=== PATIENT | female | born 1945 | race Caucasian/White ===

== ENCOUNTER 2017-03-05 06:30 | Emergency (ER) | payer MEDICARE, OTHER, MEDICAID ==
[2017-03-05 06:40] VITALS: BP 127/77
--- NOTE | 2017-03-05 08:14 | EDM.PDOC ---
ED HPI GENERAL MEDICAL PROBLEM - General Chief Complaint: ENT Problem Stated Complaint: SOB/Post Choking Episode Time Seen by Provider: 03/05/17 06:50 Throat Pain Score (Numeric/FACES): 2 - Related Data Allergies Allergy/AdvReac Type Severity Reaction Status Date / Time No Known Drug Allergies Allergy Other Verified 03/05/17 06:37 cortisone [Cortisone] AdvReac Stomach Verified 03/05/17 06:37 Upset propoxyphene HCl AdvReac Pain Verified 03/05/17 06:37 [From Darvon] Sulfa (Sulfonamide AdvReac Stomach Verified 03/05/17 06:37 Antibiotics) Upset Home Meds: Home Meds [id number] [Beano] 1 tab PO BID 02/15/14 [History] Calcium Carbonate/Vitamin D3 [Calcium 600 + Vit D 400] 1 each PO BID 02/15/14 [ History] Folic Acid 0.4 mg PO DAILY 02/15/14 [History] Glatiramer [Copaxone] 20 mg SQ DAILY 02/15/14 [History] Lansoprazole [Prevacid] 30 mg PO DAILY 02/15/14 [History] Multivitamin [Multivitamins] 1 tab PO DAILY 02/15/14 [History] Ondansetron [Zofran] 4 mg PO Q4H PRN 02/15/14 [History] Polyethylene Glycol 3350 [Miralax] 17 gm PO DAILY 02/15/14 [History] Pregabalin [Lyrica] 150 mg PO TID 02/15/14 [History] traZODone 150 mg PO BEDTIME PRN 02/15/14 [History] DULoxetine [Cymbalta] 60 mg PO BID 09/30/16 [History] Linaclotide [Linzess] 145 mcg PO DAILY 09/30/16 [History] Melatonin/Pyridoxine HCl (B6) [Melatonin 3 mg Tablet] 3 mg PO BEDTIME 09/30/16 [ History] Acetaminophen [Acetaminophen Extra Strength] 1,000 mg PO Q8H 10/04/16 [History] Ascorbic Acid [Vitamin C] 1,000 mg PO DAILY 10/04/16 [History] Bisacodyl [Dulcolax] 10 mg RECTAL DAILY PRN 10/04/16 [History] Cholecalciferol (Vitamin D3) [Vitamin D3] 1,000 units PO DAILY 10/04/16 [History ] Ferrous Gluconate [Ferate] 240 mg PO Q2D 10/04/16 [History] Magnesium Hydroxide [Milk of Magnesia] 30 ml PO DAILY PRN 10/04/16 [History] Nicotine Polacrilex [Nicotine Lozenge] 2 mg BC Q2H PRN 10/04/16 [History] Sennosides/Docusate Sodium [Senna S Tablet] 1 each PO BID 10/04/16 [History] hydrOXYzine Pamoate [Vistaril] 25 mg PO Q6H PRN 10/04/16 [History] traZODone 100 mg PO BEDTIME PRN 10/04/16 [History] Enoxaparin [Lovenox] 40 mg SUBCUT DAILY #4 syringe 10/24/16 [Rx] Past Medical History - Past Health History Medical/Surgical History: Denies Medical/Surgical History HEENT History: Reports: Impaired Vision, Macular Degeneration Gastrointestinal History: Reports: Chronic Constipation Other Gastrointestinal History: constipation, abdominal pain Musculoskeletal History: Reports: Back Pain, Chronic, Osteoporosis, Other (See Below) Other Musculoskeletal History: dislocated shoulder, fracture of right thumb Neurological History: Reports: MS, Seizure, Other (See Below) Other Neuro History: mild cognitive impairment, neuromuscular disorder Psychiatric History: Reports: Anxiety, Depression, Other (See Below) Other Psychiatric History: substance abuse Oncologic (Cancer) History: Reports: Breast - Past Surgical History GI Surgical History: Reports: Appendectomy, Bariatric Procedure Female Surgical History: Reports: Breast Implant, Mastectomy, Tubal Ligation Other Oncologic Surgeries/Procedures: left mastectomy Social & Family History - Family History Family Medical History: Noncontributory - Tobacco Use Smoking Status *Q: Current Every Day Smoker Years of Tobacco use: 30 Packs/Tins Daily: 1 Used Tobacco, but Quit: Yes Month Tobacco Last Used: january 2013 Second Hand Smoke Exposure: No - Caffeine Use Caffeine Use: Reports: Coffee - Alcohol Use Days Per Week of Alcohol Use: 0 - Recreational Drug Use Recreational Drug Use: No ED ROS GENERAL - Review of Systems Review Of Systems: ROS reveals no pertinent complaints other than HPI. ED EXAM, GENERAL - Physical Exam Exam: Not Obtained Free Text/Narrative:: Patient seen and examined by Raza Tovar. Chest x-ray ordered. Please see his dictation for visit summary. Course - Vital Signs Last Recorded V/S: Last Vital Signs Temp 35.9 C 03/05/17 06:39 Pulse 77 03/05/17 06:39 Resp 16 03/05/17 06:39 BP 127/77 03/05/17 06:39 Pulse Ox 91 L 03/05/17 06:39 - Orders/Labs/Meds Orders: Active Orders 24 hr Category Date Time Status Chest 2V [CR] Stat Exams 03/05/17 06:54 Taken - Re-Assessments/Exams Free Text/Narrative Re-Assessment/Exam: 03/05/17 08:02 Chest x-ray reviewed. No visualized food debris seen on scan. Please see Raza Tovar's dictation for ROS, Physical Exam, and HPI. Departure - Departure Time of Disposition: 08:21 Disposition: Home, Self-Care 01 Condition: Good Clinical Impression: Aspiration into airway - Discharge Information Instructions: Swallowed Foreign Body, Adult, [id number] Forms: ED Department Discharge Additional Instructions: Keep your appointment with Dr. Ro. If you are having breathing problems you should have your lungs checked to rule out COPD. I did not see any aspirated food in your lung x-ray. Please contact us with any questions or concerns.
--- NOTE | 2017-03-16 23:51 | ER ---
Date of Service: 03/05/2017 SUBJECTIVE: The patient presents to the emergency room following a choking episode. She states that she was eating cookies in bed. The patient states that she was in her wheelchair and was eating cookies and developed a partial airway obstruction. She was able to use her mobility chair to do a self- heimlich on herself to clear her airway. Subsequently, EMS was contacted using the Life Alert system. The patient was not experiencing any respiratory distress on their arrival, and the patient was subsequently brought to the emergency room for evaluation and treatment. PAST MEDICAL HISTORY: 1. MS. 2. Seizure disorder. 3. Mild cognitive impairment. 4. Anxiety. 5. Breast cancer. 6. Chronic constipation. 7. Macular degeneration. 8. Osteoporosis. 9. Chronic back pain. MEDICATIONS: 1. Trazodone. 2. Vistaril. 3. Senna Plus. 4. Lyrica. 5. MiraLAX. 6. Zofran. 7. Nicotine lozenge. 8. Multivitamin. 9. Melatonin. 10.Milk of magnesia. 11.Linzess. 12.Prevacid. 13.Copaxone. 14.Folic acid. 15.Ferrous gluconate. 16.Lovenox. 17.Cymbalta. 18.Vitamin D3. 19.Dulcolax. 20.Vitamins C. 21.Extra-strength acetaminophen. ALLERGIES: 1. Cortisone. 2. Propoxyphene. 3. Sulfa. REVIEW OF SYSTEMS: Denies any chest pain, shortness of breath, abdominal pain, nausea, or vomiting. Please see history of present illness. PHYSICAL EXAMINATION: General: This is a 71-year-old female patient, in no acute distress. Vital Signs: Blood pressure is 127/77, heart rate is 77, temperature is 35.9, respiratory rate 16, O2 saturations 91% on room air. Skin: Warm, pink, and dry. Lungs: Diminished in the mid lung parekh, particularly on the right. Heart: Regular rate and rhythm. Abdomen: Soft and nontender. There is no hepatosplenomegaly or masses noted. Remainder of her physical examination is unremarkable. Two-view chest x-ray was obtained. Please refer to Cesar Kee's documentation regarding findings of the chest x-ray and disposition of this patient. ASSESSMENT: Choking episode. PLAN: Again, this patient's care was transitioned to Cesar Kee at shift change. Please refer to his documentation regarding the disposition of this patient. MWK: 03/16/2017 19:17:30 MODL: 03/16/2017 23:47:09 /[id number]
== END 2017-03-05 08:25 | disposition home or self-care (01) ==
LOC: VM.ED 06:30
DX: R09.89 Other specified symptoms and signs involving the circulatory and respiratory systems (principal); G43.909 Migraine, unspecified, not intractable, without status migrainosus; G35 Multiple sclerosis; F41.9 Anxiety disorder, unspecified; M81.0 Age-related osteoporosis without current pathological fracture; Z85.3 Personal history of malignant neoplasm of breast; Z88.2 Allergy status to sulfonamides; Z88.8 Allergy status to other drugs, medicaments and biological substances
CPT/HCPCS: 71020; 99282-GF; 99283

== ENCOUNTER 2019-10-20 13:02 | Emergency (ER) | payer MEDICARE, MEDICAID ==
[2019-10-20 13:09] VITALS: BP 127/75; PULSE 78
--- NOTE | 2019-10-20 13:26 | EDM.PDOC ---
ED HPI GENERAL MEDICAL PROBLEM - General Chief Complaint: Skin Complaint Stated Complaint: redness, sores under breast Time Seen by Provider: 10/20/19 13:10 Source of Information: Reports: Patient, Family History Limitations: Reports: No Limitations - History of Present Illness INITIAL COMMENTS - FREE TEXT/NARRATIVE: Patient presents to the ER for skin rash under right breast. Patient states the area usually has soreness/redness and she puts nystatin powder on it as needed. Area has increased in size, redness, has open areas. Daughter states she gave patient a bath today and noticed the area had a foul smell. Patient states she thought she was febrile yesterday and today from the infected area. Daughter also noticed patient has bilateral swelling to her ankles. Patient has history of MS, is wheel chair bound. Patient last EKG was done in 2012 which was NSR. Patient denies cough, palpitations, chest pain, shortness of breath, history of HTN. Patient denies nausea, vomiting, myalgias or chills. Onset: Today Onset Date: 10/20/19 Duration: Getting Worse Location: Reports: Chest (under right breast) Quality: Reports: Burning Severity: Moderate Improves with: Reports: None Worsens with: Reports: None Associated Symptoms: Reports: No Other Symptoms - Related Data Allergies Allergy/AdvReac Type Severity Reaction Status Date / Time cortisone [Cortisone] AdvReac Stomach Verified 10/20/19 13:27 Upset propoxyphene HCl AdvReac Pain Verified 10/20/19 13:27 [From Darvon] Sulfa (Sulfonamide AdvReac Stomach Verified 10/20/19 13:27 Antibiotics) Upset Home Meds: Home Meds Ronya-W-Nddgeeyzvpaug [Beano] 1 tab PO BID 02/15/14 [History] Calcium Carbonate/Vitamin D3 [Calcium 600 + Vit D 400] 1 each PO BID 02/15/14 [ History] Folic Acid 0.4 mg PO DAILY 02/15/14 [History] Glatiramer [Copaxone] 20 mg SQ DAILY 02/15/14 [History] Lansoprazole [Prevacid] 30 mg PO DAILY 02/15/14 [History] Multivitamin [Multivitamins] 1 tab PO DAILY 02/15/14 [History] Ondansetron [Zofran] 4 mg PO Q4H PRN 02/15/14 [History] Pregabalin [Lyrica] 50 mg PO BID 02/15/14 [History] DULoxetine [Cymbalta] 60 mg PO BID 09/30/16 [History] Linaclotide [Linzess] 145 mcg PO DAILY 09/30/16 [History] Ascorbic Acid [Vitamin C] 1,000 mg PO DAILY 10/04/16 [History] Bisacodyl [Dulcolax] 10 mg RECTAL DAILY PRN 10/04/16 [History] Cholecalciferol (Vitamin D3) [Vitamin D3] 1,000 units PO DAILY 10/04/16 [History ] Ferrous Gluconate [Ferate] 240 mg PO Q2D 10/04/16 [History] Magnesium Hydroxide [Milk of Magnesia] 30 ml PO DAILY PRN 10/04/16 [History] Sennosides/Docusate Sodium [Senna-S Tablet] 1 each PO BEDTIME PRN 10/04/16 [ History] traZODone 100 mg PO BEDTIME PRN 10/04/16 [History] Aspirin [Halfprin] 162 mg PO DAILY 10/20/19 [History] Nystatin [Nyamyc] 15 gm TP BID 10/20/19 [History] Pregabalin [Lyrica] 150 mg PO TID 10/20/19 [History] Zolpidem Tartrate [Ambien] 2.5 mg PO BEDTIME 10/20/19 [History] traMADol [Ultram] 100 mg PO BID 10/20/19 [History] Past Medical History - Past Health History Medical/Surgical History: Denies Medical/Surgical History HEENT History: Reports: Impaired Vision, Macular Degeneration Gastrointestinal History: Reports: Chronic Constipation Other Gastrointestinal History: constipation, abdominal pain Musculoskeletal History: Reports: Back Pain, Chronic, Osteoporosis, Other (See Below) Other Musculoskeletal History: dislocated shoulder, fracture of right thumb Neurological History: Reports: MS, Seizure, Other (See Below) Other Neuro History: mild cognitive impairment, neuromuscular disorder Psychiatric History: Reports: Anxiety, Depression, Other (See Below) Other Psychiatric History: substance abuse Oncologic (Cancer) History: Reports: Breast - Past Surgical History GI Surgical History: Reports: Appendectomy, Bariatric Procedure Female Surgical History: Reports: Breast Implant, Mastectomy, Tubal Ligation Other Oncologic Surgeries/Procedures: left mastectomy Social & Family History - Family History Family Medical History: Noncontributory - Caffeine Use Caffeine Use: Reports: Coffee ED ROS GENERAL - Review of Systems Review Of Systems: See Below Constitutional: Reports: Fever, Weakness. Denies: Chills, Malaise, Fatigue, Diaphoresis, Weight Gain HEENT: Reports: No Symptoms Respiratory: Reports: No Symptoms. Denies: Shortness of Breath, Wheezing, Cough , Sputum Cardiovascular: Reports: Edema. Denies: Chest Pain, Blood Pressure Problem, Claudication, Dyspnea on Exertion, Lightheadedness, Palpitations, Syncope Endocrine: Reports: No Symptoms GI/Abdominal: Reports: No Symptoms : Reports: No Symptoms Musculoskeletal: Reports: No Symptoms Skin: Reports: Rash, Erythema, Lesions (right breast ) Psychiatric: Reports: No Symptoms Hematologic/Lymphatic: Reports: No Symptoms Immunologic: Reports: No Symptoms ED EXAM, SKIN/RASH Exam: See Below Exam Limited By: No Limitations General Appearance: Alert, WD/WN, No Apparent Distress Nose: Normal Inspection Head: Atraumatic, Normocephalic Respiratory/Chest: No Respiratory Distress, Lungs Clear, Normal Breath Sounds Cardiovascular: Regular Rate, Rhythm, No JVD, No Murmur Peripheral Pulses: 2+: Dorsalis Pedis (L), Dorsalis Pedis (R) GI/Abdominal: Normal Bowel Sounds, Soft, Non-Tender, No Organomegaly, No Distention, No Mass (Female) Exam: Deferred Rectal (Female) Exam: Deferred Extremities: Pedal Edema (bilateral lower extremity edema 2+) Neurological: Alert, Oriented, CN II-XII Intact, Abnormal Reflexes, Sensory/ Motor Deficit (MS, wheelchair bound) Psychiatric: Normal Affect, Normal Mood Skin: Rash (Geographic area of erythema with area of open skin in the central portion of the lesion consistent with cutaneous candidiasis with superimposed cellulitis.) Location, Skin: Chest Associated features: Tenderness, Inflammation Course - Vital Signs Last Recorded V/S: Last Vital Signs Temp 36.1 C 10/20/19 13:03 Pulse 78 10/20/19 13:03 Resp 18 10/20/19 13:03 BP 127/75 10/20/19 13:03 Pulse Ox 95 10/20/19 13:03 - Orders/Labs/Meds Orders: Active Orders 24 hr Category Date Time Status EKG Documentation Completion [RC] STAT Care 02/09/20 13:18 Active Labs: Laboratory Tests 10/20/19 10/20/19 Range/Units 13:31 13:31 WBC 11.7 H (4.0-10.0) x10^3/uL RBC 4.11 (4.00-5.50) x10^6/uL Hgb 12.4 (12.0-16.0) g/dL Hct 37.1 (33.0-47.0) % MCV 90.3 D (78.0-93.0) fL MCH 30.2 (26.0-32.0) pg MCHC 33.4 (32.0-36.0) g/dL RDW Coeff of Jimmie 15.0 (10.0-15.0) % Plt Count 252 D (130-400) x10^3/uL Neut % (Auto) 71.5 (50.0-80.0) % Lymph % (Auto) 15.8 L (25.0-50.0) % [place] % (Auto) 10.3 (2.0-11.0) % Eos % (Auto) 2.1 (0.0-4.0) % Baso % (Auto) 0.3 (0.2-1.2) % Sodium 137 (136-145) mmol/L Potassium 4.3 (3.5-5.1) mmol/L Chloride 105 (98-107) mmol/L Carbon Dioxide 27 (21-32) mmol/L Anion Gap 9.3 L (10-20) mmol/L BUN 6 L (7-18) mg/dL Creatinine 1.0 (0.55-1.02) mg/dL Est Cr Clr Drug Dosing TNP Estimated GFR (MDRD) 54 Glucose 69 L (74-106) mg/dL Calcium 8.2 L (8.5-10.1) mg/dL Corrected Calcium 9.32 (8.5-10.1) mg/dL Total Bilirubin 0.3 (0.2-1.0) mg/dL AST 30 (15-37) U/L ALT 28 (14-59) U/L Alkaline Phosphatase 134 H (46-116) U/L Troponin I < 0.017 (<=0.056) ng/mL C-Reactive Protein 2.0 H (<=0.9) mg/dL NT-Pro-B Natriuret Pep 341 (<=450) pg/mL Total Protein 5.7 L (6.4-8.2) g/dL Albumin 2.6 L (3.4-5.0) g/dL Globulin 3.1 Albumin/Globulin Ratio 0.84 Meds: Medications Discontinued Medications Generic Name Dose Route Start Last Admin Trade Name Yadira PRN Reason Stop Dose Admin Amoxicillin/Clavulanate Potassium 2 packet 10/20/19 14:14 Take Home: Amox/Clavulanate 875-12, 2 Tab Pac PO 10/20/19 14:15 ONETIME ONE Departure - Departure Time of Disposition: 14:34 Disposition: Home, Self-Care 01 Clinical Impression: Cutaneous candidiasis, Cellulitis, Peripheral edema - Discharge Information Instructions: Amoxicillin; Clavulanic Acid tablets, Cellulitis, Adult, Nystatin ; Triamcinolone cream or ointment, Skin Yeast Infection Referrals: Summer Ro, [Primary Care Provider] - Forms: ED Department Discharge Additional Instructions: Augmentin 875mg 1 twice daily for 10 days Nystatin/triamcinolone Apply to affected area twice daily until improved. Recheck in clinic in 7-10 days, sooner if not gradually improving. Sepsis Event Note - Evaluation Sepsis Screening Result: No Definite Risk - Focused Exam Vital Signs: Vital Signs Temp Pulse Resp BP Pulse Ox 10/20/19 13:03 36.1 C 78 18 127/75 95 Date Exam was Performed: 10/20/19 Time Exam was Performed: 14:29 - Problem List Review Problem List Initiated/Reviewed/Updated: Yes - My Orders Last 24 Hours: My Active Orders 10/20/19 13:18 EKG Documentation Completion [RC] STAT - Assessment/Plan Last 24 Hours: My Active Orders 10/20/19 13:18 EKG Documentation Completion [RC] STAT Plan: Start augmentin 875mg twice daily. At time of discharge, pt. daughter related that she thinks "she has a UTI" as well. No UA was performed since she is being started on an antibiotic. Pt. was started on Nystatin/triamcinolone cream. Apply to affected area twice daily until the area clears. Recheck in clinic in 7 -10 days, sooner if not gradually improving. Patient and family were reassured about the increased peripheral edema. Workup today in ER was negative for acute pathology. Pt. is not short of breath. Advised to elevate legs. If still having troubles, she may need RUFUS hose. Minimize consumption of salty floods.
[2019-10-20 14:01] LABS: CHLORIDE,CL 105 mmol/L (98-107); SODIUM,NA 137 mmol/L (136-145)
[2019-10-20 14:02] LABS: ANION GAP 9.3 mmol/L (10-20)
[2019-10-20] MEDS ORDERED: Take Home: Amoxicillin/Clavulanate K 875-125 MG Tab, 2 Tab Pack PO ONE (14:14)
== END 2019-10-20 14:41 | disposition home or self-care (01) ==
LOC: VM.ED 13:02
DX: N61.0 Mastitis without abscess (principal); B37.2 Candidiasis of skin and nail; R60.0 Localized edema; F41.9 Anxiety disorder, unspecified; F32.9 Major depressive disorder, single episode, unspecified; Z88.8 Allergy status to other drugs, medicaments and biological substances; Z88.2 Allergy status to sulfonamides; Z79.899 Other long term (current) drug therapy; Z79.82 Long term (current) use of aspirin
CPT/HCPCS: 36415; 80053; 83880; 84484; 85025; 86140; 93005; 99283; 99284; A9270

== ENCOUNTER 2020-12-09 09:41 | Inpatient (IN) | payer MEDICARE, MEDICAID ==
[2020-12-09] MEDS ORDERED: cefTRIAXone 1 GM Vial IVPUSH ONE (09:55)
[2020-12-09] MEDS ORDERED: Sodium Chloride 0.9% 10 ML Syringe FLUSH PRN (09:55)
[2020-12-09 11:48] LABS: CHLORIDE,CL 105 mmol/L (98-107); SODIUM,NA 140 mmol/L (136-145)
[2020-12-09 11:53] LABS: ANION GAP 11.2 mmol/L (5-15)
--- NOTE | 2020-12-09 14:09 | CR ---
[id number] RAD/RAD Chest PA or AP 1V EXAM: FRONTAL CHEST INDICATION: COUGH. COMPARISON: March 05, 2017. DISCUSSION: The lungs are clear. The heart is normal in size. Left breast implant. Partially imaged left humerus fixation. Convex right curvature centered in lower thoracic spine. IMPRESSION: 1. Negative for acute infiltrates. Gerhard Rizvi MD 12/09/20 [id number] Thank you for allowing us to participate in the care of your patient.
--- NOTE | 2020-12-09 14:14 | CR ---
[id number] RAD/RAD Hand Left 2V EXAM: RAD Hand Left 2V CLINICAL DATA: TRAUMA COMPARISON: CORRELATION IS MADE WITH APRIL 24, 2010 FINDINGS: Previous pathology involving the left thumb is identified with degenerative changes of the first carpometacarpal joint. IMPRESSION: NO NEW PATHOLOGY Ankur Martinez MD 12/09/20 [id number] Thank you for allowing us to participate in the care of your patient.
[2020-12-09] MEDS ORDERED: Ondansetron 4 MG Tab.DIS PO PRN (17:26)
[2020-12-09] MEDS ORDERED: Bisacodyl 10 MG Supp RECTAL PRN (17:26)
[2020-12-09] MEDS ORDERED: traZODone 50 MG Tab PO PRN (17:26)
[2020-12-09] MEDS ORDERED: Magnesium Hydroxide 400 MG/5 ML Susp 30 ML Cup PO PRN (17:26)
[2020-12-09] MEDS ORDERED: Pregabalin 50 MG Cap PO PRN (17:26)
[2020-12-09] MEDS ORDERED: Loperamide 2 MG Cap PO SCH (17:30)
[2020-12-09] MEDS: Calcium Carbonate/Vitamin D3 1250 MG-200 Unit Tab PO SCH (19:57)
[2020-12-09] MEDS: traZODone 50 MG Tab PO SCH (19:57)
[2020-12-09] MEDS: DULoxetine 60 MG Cap PO SCH (19:58)
[2020-12-09] MEDS: Pregabalin 50 MG Cap PO SCH (19:58)
[2020-12-09] MEDS: traMADol 50 MG Tab PO SCH (19:59)
[2020-12-09] MEDS: Zolpidem 5 MG Tab PO SCH (20:01)
--- NOTE | 2020-12-10 03:10 | HP ---
CHIEF COMPLAINT: Weakness and fall. HISTORY OF PRESENT ILLNESS: This is a 75-year-old female who had a fall in her apartment yesterday evening. She said she was just being careless trying to get off a jacket. She has had some left wrist pain. There is bruising. Her daughter came over and stayed with her. The episode occurred at 6:30. The daughter and got her up and she was up and down into bed at 9:30, up again at 10:30 for urine, wet the bed at 3:30 in the morning. Had a bowel movement at 3:45 that was loose; 5:45, again loose; and then 7:45, shower. The patient states her pattern has been like this, having bowel movements at night. They were black. She stopped iron pills. Now, they are brown. She stopped her prune juice because they made her bowels liquid. Before that, she was not moving her stools. She is on other bowel meds like Linzess. The patient states she has not been hungry lately. She has not had any fever, chills, but she has had some bladder irritation. She has had a history of bladder infections. This sort of feels strange like there is a bubble and she has been incontinent. She has also been coughing. She has a history of smoking. She has completed both COVID vaccines. The patient is followed by home health, who has stated without family support checking in on her she would not be able to stay at home independently. MKA: 12/09/2020 20:21:36 MODL: 12/10/2020 03:03:58 /[id number]
[2020-12-10] MEDS: traMADol 50 MG Tab PO SCH ×3 (05:00→19:41)
[2020-12-10] MEDS: Pantoprazole 40 MG Tab.CR PO SCH (06:21)
--- NOTE | 2020-12-10 06:50 | HP ---
ADDENDUM: ALLERGIES: Darvon, rash; sulfa drugs, rash and a bleeding ulcer; cortisone, not specified. MEDICATIONS: Medication list is reviewed. Ambien 1.25 mg at bedtime; tramadol 50 mg in the morning and at bedtime scheduled, she would like her p.r.n. back, she took about 10 extra per week; Lyrica 150 t.i.d. and 50 mg b.i.d. as needed for pain; Copaxone 20 mg daily; Linzess 145 daily; Prevacid 30 mg daily; Cymbalta 60 mg twice daily; trazodone 100 as needed for sleep and another 100 during the night if needed; milk of mag if needed; Imodium if needed; Zofran if needed for nausea; Senokot if needed for constipation; aspirin 162 daily; Beano; vitamin D; Dulcolax as needed; calcium; multivitamin; folic acid. PAST MEDICAL HISTORY: Includes history of breast cancer; chronic smoking; history of Ambien, has went on withdrawals for that in the past; depression; nocturnal hypoxia, on oxygen; multiple sclerosis in the 1960s; insomnia; history of bariatric surgery; history of recurrent UTIs and urinary retention; osteoporosis with hip fractures; chronic pain related to hip pain and spinal stenosis; and mild cognitive impairment. PAST SURGICAL HISTORY: The patient has had a tubal ligation; bilateral hip surgeries; left shoulder arthroscopy; left humerus ORIF for fracture; IM nailing of the right intertrochanteric hip; mastectomy on the left; gastric bypass; breast implants; appendectomy; abdominal surgery for a femoral artery bleed. FAMILY HISTORY: Both parents are . The patient had a sister who had breast cancer and a sister with multiple sclerosis. SOCIAL HISTORY: The patient is but her is not always living in her same home. She has 2 daughters, both are present today. She is a current smoker. She no longer drinks alcohol. Used to binge drink in the past. REVIEW OF SYSTEMS: General: The patient has just been weak. There has been no weight on her in quite some time like a couple years, but she is actually up about 6 pounds overall, so no weight loss. HEENT: No trouble swallowing or sore throat. Cardiac: No chest pain. No palpitations. Respiratory: She has had a cough, but no new shortness of breath. Abdomen: No vomiting but has had change in bowel habits as stated in HPI. No blood. : She has had some urinary discomfort. Neurologic: She has had some weakness and frequent falls. She has recently been seen by Neurology who has scheduled her for a followup MRI. Otherwise, all systems reviewed and found to be negative unless otherwise stated. PHYSICAL EXAMINATION: On hospital admission and I also did see the patient in the hospital, not just the clinic. Vital Signs: Temperature 97.9, weight 76.2 kg, pulse 71, blood pressure 144/79, respiratory rate 19 and O2 of 95% on room air. General: She is in no acute distress. Heart: Regular rate and rhythm. S1, S2, without murmur. Lungs: Lung sounds decreased with bilateral rhonchi. Abdomen: Positive bowel sounds. Soft, nondistended, nontender. Extremities: Warm and dry. No edema. There is some bruising over the left hand with some mild tenderness and swelling. Mental Status: She is alert and orientated x3. LABORATORY DATA: Lab work through the clinic. Initial lab came back with white count elevated to 15.8 and decision was made to admit to [facility] for further workup and treatment of sepsis. Hemoglobin was 14.7, platelets 248. A1c was 4.5. Lactic acid did come back normal. ESR 2. Sodium 140, potassium 4.2, chloride 105, bicarb 28, BUN 6, creatinine 0.9, glucose 99, calcium 8.2, bilirubin 0.5, AST 37, ALT 36, alkaline phosphatase 160, CRP 1.3, albumin 2.3. Urine; positive nitrite, large leukocyte esterase, 75 to 100 wbc's. COVID negative. ASSESSMENT AND PLAN: 1. Fall with hand injury. No obvious fracture. We will get the patient seen by OT. 2. Urinary tract infection with leukocytosis. We will treat the patient with IV Rocephin given her other allergies and not feeling well and weakness. 3. Multiple sclerosis with weakness and deconditioning. We will get PT involved. 4. DVT prophylaxis. I will start her on Lovenox. I will repeat lab work tomorrow. 5. Chronic pain. We will continue her home medications. 6. Insomnia. We will continue home medications. 7. Depression. We will continue home medications. The patient is admitted for acute cares for IV Rocephin. I will repeat lab work tomorrow. I will include a thyroid test, B12 test has already been drawn through the clinic. The patient is a code level 1. Anticipate she will need a 2-night stay and potentially need to transition over to swing bed. Currently taking assist or two to toilet her. We will hold her Linzess and see how her bowels do. MKA: 12/09/2020 20:32:14 MODL: 12/10/2020 03:38:14 /[id number] MARBIN
[2020-12-10 06:56] LABS: CHLORIDE,CL 107 mmol/L (98-107); SODIUM,NA 141 mmol/L (136-145)
[2020-12-10] MEDS ORDERED: GLATIRAMER 20 MG/ML SQ SCH (08:00)
[2020-12-10] MEDS: cefTRIAXone 1 GM Vial IVPUSH SCH (08:07)
[2020-12-10] MEDS: Enoxaparin 40 MG/0.4 ML Syringe SUBCUT SCH (08:07)
[2020-12-10] MEDS: Calcium Carbonate/Vitamin D3 1250 MG-200 Unit Tab PO SCH ×2 (08:08→19:40)
[2020-12-10] MEDS: Multivitamins with Iron/Calcium/Folic Acid/Minerals Tab PO SCH (08:08)
[2020-12-10] MEDS: Folic Acid 0.4 MG Tab PO SCH (08:08)
[2020-12-10] MEDS: Pregabalin 50 MG Cap PO SCH ×3 (08:08→19:43)
[2020-12-10] MEDS: DULoxetine 60 MG Cap PO SCH ×2 (08:08→19:40)
[2020-12-10] MEDS: Cholecalciferol (Vitamin D3) 25 MCG Tab PO SCH (08:08)
[2020-12-10] MEDS: Aspirin 81 MG Tab.EC PO SCH (08:08)
[2020-12-10] MEDS ORDERED: Albuterol/Ipratropium 3.0-0.5 MG/3 ML Neb Soln NEB PRN (08:12)
[2020-12-10] MEDS: COPAXONE 20 MG/ML SQ SCH (08:18)
--- NOTE | 2020-12-10 10:32 | PN ---
Progress Note for NAUN GRAHAM Date: 12/10/2020 Room #: VM.201 SUBJECTIVE: This is hospital day #2 on a 75-year-old who came from home with a urinary tract infection and a fall. The patient's hand feels okay. The only pain she has is in her right hip, which is her chronic pain. She has generalized weakness due to her MS. She has not had any fever or chills. She states her cough and breathing are better. Chest x-ray yesterday was okay, but she is a pack-a-day smoker and declines nicotine patch. She has not had any chronic lung disease on previous testing 4 yrs ago. She is having no abdominal pain. No nausea or vomiting. She ate 100% of her lunch yesterday. She continues to have loose stools, she had 2 overnight. She did get some Imodium. She has previously been on laxatives with Linzess. No recent ABX use prior to admit. She did get IV Rocephin yesterday and tolerated that. Post void residual was only around 200 per nursing so no straight cath was required. OBJECTIVE: Vital Signs: Her temperature is 98.7, pulse 73, blood pressure 136/75, respiratory rate 16, O2 of 91 on room air, but had been 94 and 96 on her previous checks. Mental Status: She is alert and orientated x3. General: She is in no acute distress. Heart: Regular rate and rhythm. S1 and S2 without murmur. Lungs: Sounds are clear to auscultation throughout, no rhonchi today; however, she has some rare expiratory wheezing. Abdomen: Nondistended, positive bowel sounds, soft, nontender. Extremities: Warm and dry. No edema. LABORATORY DATA: Lab work does show white count improved to 10.2, hemoglobin down to 12.7, and platelets 229. Sodium 141, potassium 4, chloride 107, bicarb 29, BUN 8, creatinine 0.9, calcium 8.2, alkaline phosphatase down to 145, albumin 2.0. Urine culture pending. Blood cultures so far no growth. Lab work through the clinic yesterday prior to admission for outpatient labs did show her B12 normal at 730. ASSESSMENT: 1. Urinary tract infection with leukocytosis, improving. She is on day #2 IV Rocephin. We will continue with that. 2. Weakness and frequent falls related to the urinary tract infection and multiple sclerosis. 3. Fall with left hand injury. We will get OT involved. It is not fractured on x-ray, but she may need a brace to help her with transfers. 4. Multiple sclerosis. 5. Deep venous thrombosis prophylaxis on Lovenox. 6. Chronic pain. She is on her home medications. 7. Loose stools, likely related to laxatives. We have held her Linzess. 8. Insomnia. 9. Depression. 10. Smoking, possibly chronic bronchitis PLAN: The patient will continue on acute cares. We will discontinue telemetry. She had no events other than some brief sinus tachycardia. We will get Therapies involved along with Manager Nc to ensure that she is safe to return home. Right now, she is needing the assist of at least 1 more person for transfers and toileting. The patient declines a nicotine patch. We will start prn nebs and incentive spirometry. MKA: 12/10/2020 08:29:43 MODL: 12/10/2020 10:23:11 /[id number] MARBIN
[2020-12-10] MEDS ORDERED: traMADol 50 MG Tab PO ONE (15:10)
[2020-12-10] MEDS: traZODone 50 MG Tab PO SCH (19:40)
[2020-12-10] MEDS: Zolpidem 5 MG Tab PO SCH (19:41)
[2020-12-10] MEDS ORDERED: traMADol 50 MG Tab PO PRN (21:18)
[2020-12-11] MEDS: Pantoprazole 40 MG Tab.CR PO SCH (06:09)
[2020-12-11] MEDS: COPAXONE 20 MG/ML SQ SCH (08:32)
[2020-12-11] MEDS: Enoxaparin 40 MG/0.4 ML Syringe SUBCUT SCH (08:33)
[2020-12-11] MEDS: cefTRIAXone 1 GM Vial IVPUSH SCH (08:34)
[2020-12-11] MEDS: Psyllium 0.52 GM Cap PO SCH (08:35)
[2020-12-11] MEDS: Cholecalciferol (Vitamin D3) 25 MCG Tab PO SCH (08:35)
[2020-12-11] MEDS: Multivitamins with Iron/Calcium/Folic Acid/Minerals Tab PO SCH (08:35)
[2020-12-11] MEDS: Pregabalin 50 MG Cap PO SCH ×3 (08:35→19:57)
[2020-12-11] MEDS: Aspirin 81 MG Tab.EC PO SCH (08:36)
[2020-12-11] MEDS: DULoxetine 60 MG Cap PO SCH ×2 (08:36→19:54)
[2020-12-11] MEDS: traMADol 50 MG Tab PO SCH ×2 (08:36→19:56)
[2020-12-11] MEDS: Calcium Carbonate/Vitamin D3 1250 MG-200 Unit Tab PO SCH ×2 (08:37→19:57)
[2020-12-11] MEDS: Folic Acid 0.4 MG Tab PO SCH (08:37)
[2020-12-11] MEDS ORDERED: Naproxen 500 MG Tab PO PRN (09:36)
--- NOTE | 2020-12-11 10:22 | PN ---
Progress Note for NAUN GRAHAM Date: 12/11/2020 Room #: VM.201 SUBJECTIVE: This is hospital day #3 on a 75-year-old admitted with weakness and falls and a urinary tract infection with leukocytosis. White count 15,000 in the clinic. She has been afebrile. She has had a history of urinary retention. She has a longstanding history of MS. She did require a straight cath yesterday when her postvoid was over 600. She did void 100 more and was straight cathed for 400. She did request an additional dose of p.r.n. tramadol for her chronic hip pain, and this morning she is asking about p.r.n. Aleve. Her renal function has been good. Her sed rate was only 2. Her white count improved to 10.2. She is not having any cough or breathing trouble, but her oxygen saturation was slightly low at 89% this morning. However, the patient normally uses oxygen at home during the night and did not use it here. The patient otherwise has been having diarrhea even prior to being on antibiotics with loose stools that happened overnight. She had another major one around 4 a.m. this morning and required quite a bit of assistance to help clean her up. This is despite us stopping the Linzess on admission and getting no laxatives. OBJECTIVE: Vital Signs: Her temperature is 98.4, pulse 75, blood pressure 128/75, respiratory rate 16, O2 of 89% on room air. General: She is in no acute distress. Heart: Regular rate and rhythm without murmur. Lungs: Lung sounds are clear to auscultation in the right lung. Decreased lung sounds with rhonchi in the left. She denies any trouble swallowing. Abdomen: Has positive bowel sounds. It is soft, nondistended, nontender. Extremities: Warm and dry with trace ankle edema. We have not even given her any fluids. Mental Status: She is alert and oriented x3. Her right breast is examined and is normal. She has had trouble with infections under her breast with yeast previously, but none present today. LABORATORY DATA: Shows her urine to have return for E coli, pansensitive. Chest x-ray is ordered and pending. ASSESSMENT: 1. Escherichia coli urinary tract infection. The patient did receive her intravenous Rocephin this morning. We will switch her over to Macrobid to complete a 7-day course. 2. Urinary retention probably due to underlying multiple sclerosis. We will continue with bladder scans and straight cath if needed for over 400. 3. Nocturnal hypoxia. We will schedule her O2 at night. I will get a chest x- ray today. We will encourage incentive spirometry. 4. Chronic hip pain. She has had previous fractures. Tramadol is available p.r.n. She only got 1 additional dose. She is on her scheduled tramadol. We will also include p.r.n. Aleve and she is also on Lyrica. 5. Gastroesophageal reflux disease. She is on Protonix. I am going to decrease the dose to 20 mg daily in case this is worsening her diarrhea. 6. Loose stools and incontinence. This has been an ongoing problem. Her laxatives have been stopped. I did start her on Metamucil today. The patient understands that this is to bulk up her stools and hopefully help. We will also send off a Clostridium difficile test. 7. Deep venous thrombosis prophylaxis. She is on Lovenox. 8. Weakness and deconditioning with frequent falls. She is working with therapies. 9. Multiple sclerosis. She was supposed to have an MRI in [place] per Neuro for routine followup. That will need to be rescheduled. 10.Fall with left hand injury. X-rays negative for fracture. That seems to be improving. 11.Depression. 12.Smoking with likely chronic bronchitis. She has not used a nebulizer yet. PLAN: The patient will continue acute cares. I will switch her antibiotics over to Macrobid tomorrow as she has already had her Rocephin for today. We will continue her working with therapies. We will get a stool test. We will get a test for C diff. We will put her on the Metamucil. We will continue with the bladder scan. Encourage incentive spirometry and oxygen at night. The patient was initially very reluctant to stay over the weekend, but in the end did agree. She will likely transition over to swing bed tomorrow if all medical conditions remain stable. MKA: 12/11/2020 09:43:43 MODL: 12/11/2020 10:15:24 /[id number]
--- NOTE | 2020-12-11 13:18 | CR ---
[id number] RAD/RAD Chest PA or AP 1V EXAM: SINGLE VIEW CHEST. INDICATION: HYPOXIA COMPARISON: CORRELATION IS MADE WITH DECEMBER 09, 2020 FINDINGS: The lungs are clear The cardiomediastinal contour is stable Surgical changes of the left upper extending again are seen IMPRESSION: STABLE CHEST Ankur Martinez MD 12/11/20 1494 Thank you for allowing us to participate in the care of your patient.
[2020-12-11] MEDS: Zolpidem 5 MG Tab PO SCH (19:54)
[2020-12-11] MEDS: traZODone 50 MG Tab PO SCH (19:55)
[2020-12-12 06:18] VITALS: BP 109/56; PULSE 63
[2020-12-12] MEDS: Pantoprazole 40 MG Tab.CR PO SCH (06:24)
[2020-12-12] MEDS: cefTRIAXone 1 GM Vial IVPUSH SCH (07:55)
[2020-12-12] MEDS: Pregabalin 50 MG Cap PO SCH (07:55)
[2020-12-12] MEDS: Enoxaparin 40 MG/0.4 ML Syringe SUBCUT SCH (07:55)
[2020-12-12] MEDS: traMADol 50 MG Tab PO SCH (07:55)
[2020-12-12] MEDS: Multivitamins with Iron/Calcium/Folic Acid/Minerals Tab PO SCH (07:56)
[2020-12-12] MEDS: DULoxetine 60 MG Cap PO SCH (07:56)
[2020-12-12] MEDS: Aspirin 81 MG Tab.EC PO SCH (07:56)
[2020-12-12] MEDS: Folic Acid 0.4 MG Tab PO SCH (07:56)
[2020-12-12] MEDS: Cholecalciferol (Vitamin D3) 25 MCG Tab PO SCH (07:56)
[2020-12-12] MEDS: Psyllium 0.52 GM Cap PO SCH (07:56)
[2020-12-12] MEDS: Calcium Carbonate/Vitamin D3 1250 MG-200 Unit Tab PO SCH (07:57)
[2020-12-12] MEDS ORDERED: Nitrofurantoin Monohydrate/Macrocrystalline 100 MG Cap PO SCH (08:00)
[2020-12-12] MEDS: COPAXONE 20 MG/ML SQ SCH (08:02)
--- NOTE | 2020-12-12 14:05 | DISCH ---
ADMITTING DIAGNOSES: 1. Fall with hand injury. 2. Urinary tract infection with leukocytosis. 3. Multiple sclerosis with weakness and deconditioning. 4. Chronic pain. 5. Insomnia. 6. Depression. DISCHARGE DIAGNOSES: 1. Fall with hand injury - improving. 2. Urinary tract infection with leukocytosis - improving. 3. Multiple sclerosis with weakness and deconditioning - chronic. 4. Chronic pain. 5. Insomnia. 6. Depression. HISTORY OF PRESENT ILLNESS: A 75-year-old female patient was admitted into the acute care floor on 12/09/2020 for weakness and falls as well as a urinary tract infection with leukocytosis. The patient's white count had been as high as 15,000 in the clinic. The patient does have a history of urinary retention. She has a longstanding history of MS. The patient was admitted acutely for current symptoms and urinary tract infection. HOSPITAL COURSE: The patient remained afebrile and hemodynamically stable. The patient is progressing with physical and occupational therapy. The patient did have issues with diarrhea, therefore, a C diff was checked, which turned out to be negative. The patient continues to use oxygen at night. Her white cell count has improved on Rocephin IV. The patient did not have any issues with headaches, dizziness, or lightheadedness. The patient did not have any chest pain or palpitations. The patient had not complained of any shortness of breath or cough. The patient continues to have loose stools. The patient had been on Linzess, which was stopped and the patient has not been getting any laxatives. CONSULTATIONS: Case Management, Physical Therapy, Occupational Therapy. DIET: Regular. ACTIVITY: As tolerated per PT. DISCHARGE MEDICATIONS: 1. DuoNebs every 4 hours as needed. 2. Aspirin 162 mg p.o. daily. 3. Dulcolax 10 mg daily as needed per rectal. 4. Calcium carbonate/vitamin-D 1 tablet p.o. daily. 5. Vitamin D 25 mcg 1 tablet p.o. daily. 6. Senna-S 1 tablet p.o. daily at bedtime. 7. Cymbalta 60 mg 1 tablet p.o. twice daily. 8. Folic acid 0.4 mg 1 tablet p.o. daily. 9. Linzess 145 mcg 1 tablet p.o. daily. 10.Copaxone subcu daily. 11.Magnesium hydroxide 30 mL p.o. daily as needed. 12.Multivitamin with iron 1 tablet p.o. daily. 13.Naproxen 500 mg 1 tablet p.o. every 12 hours as needed. 14.Macrobid 100 mg 1 tablet p.o. daily. 15.Zofran 4 mg 1 tablet p.o. every 4 hours as needed. 16.Protonix 40 mg 1 tablet p.o. daily. 17.Lyrica 50 mg 1 tablet p.o. twice daily as needed. 18.Lyrica 150 mg 1 tablet p.o. 3 times daily. 19.Metamucil 1.04 grams p.o. daily. 20.Tramadol 100 mg 1 tablet p.o. twice daily. 21.Tramadol 50 mg every 8 hours as needed. 22.Trazodone 100 mg 1 tablet p.o. daily at bedtime. 23.Ambien 1.25 mg 1 tablet p.o. daily at bedtime. LABORATORY WORK: 1. CBC; white blood cell count 8.9, hemoglobin 13.3, hematocrit 38.8, platelets 234,000. 2. BMP; sodium 143, potassium 4.0, chloride 108, CO2 of 31, anion gap 8.0, BUN 6, creatinine 1.0, GFR 54, glucose 96, calcium 8.3, bilirubin 0.4, AST 34, ALT 33, alkaline phosphatase 145, total protein 5.5, albumin 2.2. REVIEW OF SYSTEMS: Unable to obtain due to MS; however, nursing staff offers no concerns. DISCHARGE PHYSICAL EXAMINATION: Vital Signs: See nursing documentation. Skin: Intact, warm, and dry. Respiratory: Lungs are decreased, but clear throughout. Cardiovascular: Regular rate and rhythm, no murmur. Abdomen: Soft, nontender. Bowel sounds are hyperactive x4. Neurological: The patient is alert. The patient does not appear to be in any acute distress. No new neurological deficits. ASSESSMENT: 1. Fall with hand injury. 2. Urinary tract infection with leukocytosis. 3. Multiple sclerosis with weakness and deconditioning. 4. Depression. 5. Nocturnal hypoxia. 6. Chronic hip pain. 7. Gastroesophageal reflux disease. 8. Loose stools and incontinence. 9. Chronic hip pain. PLAN: The patient will be discharged to swing bed today. The admitting acute H&P is still current as of the date of this dictation. It may be used as the H&P for admission to swing bed. Continue medications the same. PT/OT will continue to follow as well as Case Management. There is a family conference Monday at noon for plan of care and discharge disposition. Will continue patient on Macrobid for UTI. TB: 12/12/2020 09:52:59 MODL: 12/12/2020 13:57:54 /[id number] MTDD
[2020-12-12] MEDS ORDERED: ALPHA D GALACTOSIDASE PO SCH (20:00)
== END 2020-12-12 09:28 | disposition swing bed (61) | DRG 914 ==
LOC: VM.MS 09:46
PROVIDERS: ADMIT Internal Medicine; ATTEND Internal Medicine
DX: S69.92XA Unspecified injury of left wrist, hand and finger(s), initial encounter (principal); N39.0 Urinary tract infection, site not specified; G35 Multiple sclerosis; W19.XXXA Unspecified fall, initial encounter; G89.29 Other chronic pain; G47.00 Insomnia, unspecified; F32.9 Major depressive disorder, single episode, unspecified; F17.210 Nicotine dependence, cigarettes, uncomplicated; J42 Unspecified chronic bronchitis; R33.9 Retention of urine, unspecified; B96.20 Unspecified Escherichia coli [E. coli] as the cause of diseases classified elsewhere; M25.559 Pain in unspecified hip; K21.9 Gastro-esophageal reflux disease without esophagitis; R32 Unspecified urinary incontinence; M81.0 Age-related osteoporosis without current pathological fracture; Z88.2 Allergy status to sulfonamides; Z88.8 Allergy status to other drugs, medicaments and biological substances; Z79.899 Other long term (current) drug therapy; Z85.3 Personal history of malignant neoplasm of breast; Z98.84 Bariatric surgery status; Z87.440 Personal history of urinary (tract) infections; Z98.51 Tubal ligation status; Z90.49 Acquired absence of other specified parts of digestive tract; Z79.82 Long term (current) use of aspirin
CPT/HCPCS: 36415; 51798; 71045; 73120-LT; 80053; 81001; 83605; 84443; 85025; 85652; 86140; 87040; 87086; 87088; 87186; 87493; 97110-GP; 97162-GP; 97165-GO; 97530-GP; 97535-GO; 97760-GO; A9270-GY; J0696; J1650; U0002

== ENCOUNTER 2020-12-12 09:31 | Inpatient (IN) | payer MEDICARE, MEDICAID ==
[2020-12-12] MEDS ORDERED: ONDANSETRON 4 MG PO PRN (12:54)
[2020-12-12] MEDS ORDERED: Magnesium Hydroxide 400 MG/5 ML Susp 30 ML Cup PO PRN ×2 (12:54→12:57)
[2020-12-12] MEDS ORDERED: Bisacodyl 10 MG Supp RECTAL PRN ×2 (12:54→12:57)
[2020-12-12] MEDS ORDERED: TRAZODONE 100 MG PO PRN (12:54)
[2020-12-12] MEDS ORDERED: Pregabalin 50 MG Cap PO PRN ×2 (12:54→12:57)
[2020-12-12] MEDS ORDERED: traMADol 50 MG Tab PO PRN (12:57)
[2020-12-12] MEDS ORDERED: traZODone 50 MG Tab PO PRN (12:57)
[2020-12-12] MEDS ORDERED: Albuterol/Ipratropium 3.0-0.5 MG/3 ML Neb Soln NEB PRN (12:57)
[2020-12-12] MEDS ORDERED: Sodium Chloride 0.9% 10 ML Syringe FLUSH PRN (12:57)
[2020-12-12] MEDS ORDERED: Loperamide 2 MG Cap PO SCH (12:57)
[2020-12-12] MEDS ORDERED: Ondansetron 4 MG Tab.DIS PO PRN (12:57)
[2020-12-12] MEDS: Zolpidem 5 MG Tab PO SCH (19:48)
[2020-12-12] MEDS: Calcium Carbonate/Vitamin D3 1250 MG-200 Unit Tab PO SCH (19:49)
[2020-12-12] MEDS: Pregabalin 50 MG Cap PO SCH (19:50)
[2020-12-12] MEDS: DULoxetine 60 MG Cap PO SCH (19:50)
[2020-12-12] MEDS: traZODone 50 MG Tab PO SCH (19:51)
[2020-12-12] MEDS: Nitrofurantoin Monohydrate/Macrocrystalline 100 MG Cap PO SCH (19:51)
[2020-12-12] MEDS: traMADol 50 MG Tab PO SCH (19:51)
[2020-12-12] MEDS: Loperamide 2 MG Cap PO PRN (19:52)
[2020-12-12] MEDS ORDERED: Non-Formulary Medication 1 Each (Pregabalin [Lyrica] 150 MG Capsule) PO SCH (20:00)
[2020-12-12] MEDS ORDERED: traMADol 50 MG Tab PO SCH (20:00)
[2020-12-12] MEDS ORDERED: Zolpidem 5 MG Tab PO SCH (20:00)
[2020-12-12] MEDS ORDERED: Nitrofurantoin Monohydrate/Macrocrystalline 100 MG Cap PO SCH (20:00)
[2020-12-12] MEDS ORDERED: DULoxetine 60 MG Cap PO SCH (20:00)
[2020-12-12] MEDS ORDERED: ALPHA D GALACTOSIDASE PO SCH (20:00)
[2020-12-12] MEDS ORDERED: traZODone 50 MG Tab PO SCH (20:00)
[2020-12-13] MEDS: Pantoprazole 40 MG Tab.CR PO SCH (06:49)
[2020-12-13] MEDS: traMADol 50 MG Tab PO SCH ×2 (07:55→19:52)
[2020-12-13] MEDS: Psyllium 0.52 GM Cap PO SCH (07:56)
[2020-12-13] MEDS: Multivitamins with Iron/Calcium/Folic Acid/Minerals Tab PO SCH (07:56)
[2020-12-13] MEDS: DULoxetine 60 MG Cap PO SCH ×2 (07:57→19:48)
[2020-12-13] MEDS: Calcium Carbonate/Vitamin D3 1250 MG-200 Unit Tab PO SCH ×2 (07:57→19:48)
[2020-12-13] MEDS: Pregabalin 50 MG Cap PO SCH ×3 (07:57→19:55)
[2020-12-13] MEDS: Aspirin 81 MG Tab.EC PO SCH (07:57)
[2020-12-13] MEDS: Nitrofurantoin Monohydrate/Macrocrystalline 100 MG Cap PO SCH ×2 (07:57→19:53)
[2020-12-13] MEDS: Cholecalciferol (Vitamin D3) 25 MCG Tab PO SCH (07:58)
[2020-12-13] MEDS: Folic Acid 0.4 MG Tab PO SCH (07:58)
[2020-12-13] MEDS ORDERED: Non-Formulary Medication 1 Each (Multivitamin [Multivitamins] 1 EACH Capsule) PO SCH (08:00)
[2020-12-13] MEDS ORDERED: GLATIRAMER 20 MG/ML SQ SCH (08:00)
[2020-12-13] MEDS ORDERED: Cholecalciferol (Vitamin D3) 25 MCG Tab PO SCH (08:00)
[2020-12-13] MEDS ORDERED: LANSOPRAZOLE 30 MG PO SCH (08:00)
[2020-12-13] MEDS ORDERED: Aspirin 81 MG Tab.EC PO SCH (08:00)
[2020-12-13] MEDS ORDERED: Non-Formulary Medication 1 Each (Linaclotide [Linzess] 145 MCG) PO SCH (08:00)
[2020-12-13] MEDS ORDERED: Folic Acid 0.4 MG Tab PO SCH (08:00)
[2020-12-13] MEDS: Naproxen 500 MG Tab PO PRN (09:22)
[2020-12-13] MEDS: Loperamide 2 MG Cap PO PRN (18:19)
[2020-12-13] MEDS: Zolpidem 5 MG Tab PO SCH (19:47)
[2020-12-13] MEDS: traZODone 50 MG Tab PO SCH (19:53)
[2020-12-14] MEDS: Pantoprazole 40 MG Tab.CR PO SCH (06:32)
[2020-12-14] MEDS: GLATIRAMER 20 MG SQ SCH (09:57)
[2020-12-14] MEDS: Multivitamins with Iron/Calcium/Folic Acid/Minerals Tab PO SCH (09:57)
[2020-12-14] MEDS: Calcium Carbonate/Vitamin D3 1250 MG-200 Unit Tab PO SCH ×2 (09:57→19:51)
[2020-12-14] MEDS: Psyllium 0.52 GM Cap PO SCH (09:57)
[2020-12-14] MEDS: Loperamide 2 MG Cap PO PRN ×2 (09:58→19:52)
[2020-12-14] MEDS: Aspirin 81 MG Tab.EC PO SCH (09:58)
[2020-12-14] MEDS: Cholecalciferol (Vitamin D3) 25 MCG Tab PO SCH (09:58)
[2020-12-14] MEDS: DULoxetine 60 MG Cap PO SCH ×2 (09:58→19:50)
[2020-12-14] MEDS: Nitrofurantoin Monohydrate/Macrocrystalline 100 MG Cap PO SCH ×2 (09:58→19:51)
[2020-12-14] MEDS: Folic Acid 0.4 MG Tab PO SCH (09:58)
[2020-12-14] MEDS: Pregabalin 50 MG Cap PO SCH ×3 (09:59→19:53)
[2020-12-14] MEDS: traMADol 50 MG Tab PO SCH ×2 (09:59→19:52)
--- NOTE | 2020-12-14 17:26 | PN ---
Progress Note for NAUN GRAHAM Date: 12/14/2020 Room #: VM.201 SUBJECTIVE: A 75-year-old admitted to Acute Care after frequent falls and an E. coli UTI. She is currently on Macrobid, due to finish her doses tomorrow. Unfortunately, she has been having diarrhea and incontinence of stool. Despite stopping her Linzess and other laxatives, she had a C. diff test that came back negative. We did add her on Metamucil late last week, so far has not noted any benefit. She has been eating okay. She did have 5 stools on 12/13/2020. She has been drinking water. She has been working with therapies and needing some assistance to safely transfer. She would like to get back to her apartment soon. Family conference was held today with her 2 daughters and decision was made to transition over to the [facility] later this week for further strengthening prior to returning home and also to give the opportunity for the county and family to arrange for more home services. OBJECTIVE: Vital Signs: Her temperature is 97.4, weight 73.2 kg, pulse 70, blood pressure 129/75, respiratory rate 16, and O2 of 94% on room air. General: She is in no acute distress. Heart: Regular rate and rhythm. Lungs: Lung sounds have some rare rhonchi, did clear with coughing. Mental Status: She is alert and oriented x3, but when trying to tell me about when her diarrhea stopped she said Monday or Monday morning and neglected to remember the episodes during the day. Daughters did mention that their dad had some concerns about the extra trazodone dose during the night, which she is not even scheduled to get here. ASSESSMENT: 1. Escherichia coli urinary tract infection. Will be completing antibiotics tomorrow. 2. Loose stools. This has been an ongoing problem, previously had diarrhea. We will continue the Metamucil and Imodium p.r.n. If this does not work, we will need to try some dietary changes. She is already on yogurt for C. diff prophylaxis. 3. Urinary retention. This is presumably due to her multiple sclerosis. She has been evaluated by Urology in the past and she is not interested in returning. She did require straight catheterization over the weekend. 4. Multiple sclerosis. She is due for an outpatient MRI and neuro followup later this month. 5. Chronic hip pain. She has worked with therapy before. She has tramadol available. She has used some p.r.n. NSAIDs. She is also on Lyrica. 6. Gastroesophageal reflux disease. 7. Weakness and deconditioning. She is working with therapies. 8. Fall with hand injury. She continues to have some pain there. She is now wearing a splint. We will likely repeat her x-ray on Monday. 9. Smoking with likely chronic bronchitis. She is currently declining any nicotine patch or gum. 10.Depression. PLAN: After meeting with the patient and her 2 daughters, decision was made to transition over to the [facility] for further strengthening at the end of the week, likely for several weeks to a month. The patient is agreeable with this plan. No lab work will need to be repeated. If having further diarrhea despite Metamucil, we will collect stool studies. MKA: 12/14/2020 17:03:36 MODL: 12/14/2020 17:17:29 /[id number]
[2020-12-14] MEDS: Zolpidem 5 MG Tab PO SCH (19:51)
[2020-12-14] MEDS: traZODone 50 MG Tab PO SCH (19:52)
[2020-12-14] MEDS: Naproxen 500 MG Tab PO PRN (20:27)
[2020-12-14] MEDS: ALPHA D GALACTOSIDASE PO SCH (20:27)
[2020-12-15] MEDS: Pantoprazole 40 MG Tab.CR PO SCH (06:09)
[2020-12-15] MEDS: Aspirin 81 MG Tab.EC PO SCH (07:52)
[2020-12-15] MEDS: Calcium Carbonate/Vitamin D3 1250 MG-200 Unit Tab PO SCH ×2 (07:52→19:47)
[2020-12-15] MEDS: Psyllium 0.52 GM Cap PO SCH (07:53)
[2020-12-15] MEDS: Loperamide 2 MG Cap PO PRN ×2 (07:53→19:49)
[2020-12-15] MEDS: Multivitamins with Iron/Calcium/Folic Acid/Minerals Tab PO SCH (07:53)
[2020-12-15] MEDS: Folic Acid 0.4 MG Tab PO SCH (07:53)
[2020-12-15] MEDS: Pregabalin 50 MG Cap PO SCH ×3 (07:53→19:47)
[2020-12-15] MEDS: DULoxetine 60 MG Cap PO SCH ×2 (07:53→19:47)
[2020-12-15] MEDS: Cholecalciferol (Vitamin D3) 25 MCG Tab PO SCH (07:54)
[2020-12-15] MEDS: Nitrofurantoin Monohydrate/Macrocrystalline 100 MG Cap PO SCH ×2 (07:54→19:48)
[2020-12-15] MEDS: traMADol 50 MG Tab PO SCH ×2 (07:54→19:49)
[2020-12-15] MEDS: ALPHA D GALACTOSIDASE PO SCH ×2 (08:27→19:46)
[2020-12-15] MEDS: GLATIRAMER 20 MG SQ SCH (09:11)
[2020-12-15] MEDS: Zolpidem 5 MG Tab PO SCH (19:46)
[2020-12-15] MEDS: traZODone 50 MG Tab PO SCH (19:48)
[2020-12-15] MEDS: Naproxen 500 MG Tab PO PRN (23:50)
[2020-12-16] MEDS: Pantoprazole 40 MG Tab.CR PO SCH (06:47)
[2020-12-16] MEDS: Loperamide 2 MG Cap PO PRN (06:47)
[2020-12-16] MEDS: Folic Acid 0.4 MG Tab PO SCH (08:28)
[2020-12-16] MEDS: DULoxetine 60 MG Cap PO SCH ×2 (08:29→20:12)
[2020-12-16] MEDS: Aspirin 81 MG Tab.EC PO SCH (08:29)
[2020-12-16] MEDS: Pregabalin 50 MG Cap PO SCH ×3 (08:30→20:12)
[2020-12-16] MEDS: GLATIRAMER 20 MG SQ SCH (08:32)
[2020-12-16] MEDS: Multivitamins with Iron/Calcium/Folic Acid/Minerals Tab PO SCH (08:33)
[2020-12-16] MEDS: Psyllium 0.52 GM Cap PO SCH (08:33)
[2020-12-16] MEDS: traMADol 50 MG Tab PO SCH ×2 (08:34→20:13)
[2020-12-16] MEDS: Cholecalciferol (Vitamin D3) 25 MCG Tab PO SCH (08:37)
[2020-12-16] MEDS: ALPHA D GALACTOSIDASE PO SCH ×2 (08:51→20:14)
[2020-12-16] MEDS: Calcium Carbonate/Vitamin D3 1250 MG-200 Unit Tab PO SCH ×2 (10:37→20:12)
[2020-12-16] MEDS: Zolpidem 5 MG Tab PO SCH (20:11)
[2020-12-16] MEDS: traZODone 50 MG Tab PO SCH (20:13)
[2020-12-16] MEDS: Naproxen 500 MG Tab PO PRN (20:14)
[2020-12-17] MEDS: Pantoprazole 40 MG Tab.CR PO SCH (06:01)
[2020-12-17] MEDS: Psyllium 0.52 GM Cap PO SCH (07:30)
[2020-12-17] MEDS: Loperamide 2 MG Cap PO PRN (07:30)
[2020-12-17] MEDS: Calcium Carbonate/Vitamin D3 1250 MG-200 Unit Tab PO SCH (07:30)
[2020-12-17] MEDS: Pregabalin 50 MG Cap PO SCH (07:30)
[2020-12-17] MEDS: ALPHA D GALACTOSIDASE PO SCH (07:30)
[2020-12-17] MEDS: Folic Acid 0.4 MG Tab PO SCH (07:30)
[2020-12-17] MEDS: Multivitamins with Iron/Calcium/Folic Acid/Minerals Tab PO SCH (07:30)
[2020-12-17] MEDS: Cholecalciferol (Vitamin D3) 25 MCG Tab PO SCH (07:30)
[2020-12-17] MEDS: Aspirin 81 MG Tab.EC PO SCH (07:30)
[2020-12-17] MEDS: DULoxetine 60 MG Cap PO SCH (07:31)
[2020-12-17] MEDS: GLATIRAMER 20 MG SQ SCH (07:32)
[2020-12-17] MEDS: traMADol 50 MG Tab PO SCH (07:33)
[2020-12-17 08:28] VITALS: BP 139/75; PULSE 79
--- NOTE | 2020-12-17 10:28 | CR ---
[id number] RAD/RAD Hand Left 2V EXAM: 2 VIEWS LEFT HAND. INDICATION: PAIN. COMPARISON: 12/09/2020. DISCUSSION: There appears to be a subacute fracture involving the distal left radius. Alignment is maintained. No significant displacement. No acute fractures are identified. Advanced degenerative changes of the first carpometacarpal joint. Mild degenerative changes seen throughout the remainder of the left hand. These are most pronounced at the interphalangeal joints IMPRESSION: 1. Subacute fracture involving the distal left radius. Benjie Mitchell DO 12/17/20 1027 Thank you for allowing us to participate in the care of your patient.
--- NOTE | 2020-12-17 11:38 | DISCH ---
PRIMARY DISCHARGE DIAGNOSES: 1. Escherichia coli urinary tract infection, treated. 2. Fall with left hand injury. Initial x-rays were negative. Now, the patient is having more pain over the fourth metacarpal. We will re-x-ray today. 3. Loose stools, around 4 per day. Laxatives were stopped. Clostridium difficile was negative. She is getting Imodium 1 daily and had a small formed stool today. She does have a history of gastric bypass and already limits milk. 4. Multiple sclerosis, following with Neurology, due for an outpatient MRI which has been scheduled. 5. Chronic pain in the right hip, status post dry needling by PT. She has had multiple followups with them. 6. Urinary retention, likely due to her multiple sclerosis. She refused Urology eval. She has required straight cath no more frequently than once daily. Last done yesterday for a postvoid residual of 600. 7. Smoking, not motivated to quit. 8. Gastroesophageal reflux disease. 9. Likely chronic bronchitis. She did not use any DuoNeb here. 10.Depression. REASON FOR ADMISSION: On the date of admission, this 75-year-old female who normally lives at home in her apartment and is followed by Home Health with also family support did have a fall and hurt her left hand. She had been having multiple falls and declining in health over the last several weeks. Her white count was elevated like to 15,000. She had no fever. Given her history of urinary retention, UTIs, and weakness, the patient was admitted and treated with IV Rocephin. Her white count did normalize. She was already having some loose stools and incontinence at home, but it got worse in the hospital. Despite holding her Linzess, C. diff testing was negative. Then, Metamucil was started and Imodium p.r.n., and her symptoms did seem to improve, but did not go away. She is interested in trying something else if things do not continue to improve. Overall, her breathing was okay. She had some chest x-rays that were not showing any pneumonia. She does normally use 2 L of oxygen at night. Left hand had a splint applied by OT. Initially, the patient resisted. She is still having some pain and bruising with pushing up off her chair. This is what limited her transfers and she was needing more assistance. Therefore, decision was made to [facility] to the [facility]. The swelling has improved in the hand overall. For pain control, she was getting 1 additional Aleve dose per day, mostly for the hip, and not any extra p.r.n. tramadol. She remained on her same tramadol and Lyrica. PHYSICAL EXAMINATION: Vital Signs: Discharge vitals include weight 76.7 kg, temp 97.8, pulse 79, blood pressure 139/75, respiratory rate 17, and O2 of 96% on room air. General: She is in no acute distress. Heart: Regular rate and rhythm. S1, S2 without murmur. Lungs: Lung sounds are clear to auscultation bilaterally without crackles or wheezes. Extremities: Warm and dry. No edema. Left hand does have bruising. She had some tenderness over the fourth metacarpal on the left, but no crepitus. Mental Status: Alert and orientated x3. DISCHARGE PLANS AND INSTRUCTIONS: She will go to [facility]. She will be on 2 L of oxygen at night. She will have bladder scans once daily and a postvoid, and if over 500, she will require straight cath x1. Dietitian to see her to help with a lactose-free diet with the exception of yogurt for 1 more week to prevent C. diff after finishing her Macrobid antibiotic. I will see her next month on residential rounds unless she goes home in that time, which the patient is hopeful to return home soon in like 1 week, but I did inform her she will be there at least 2 weeks. She does not have any lab work due until February and her p.r.n. trazodone dose during the night was discontinued as she was not using it. Greater than 30 minutes spent on this d/c process Addendum her x-ray did come back with a nondisplaced subacute distal radius fracture. New braces recommended and [facility]. Will continue with the brace for 4 weeks and repeat x-rays then. MKA: 12/17/2020 09:26:25 MODL: 12/17/2020 11:27:52 /[id number] MARBIN
== END 2020-12-17 10:35 | DRG 948 ==
LOC: VM.MS 09:31
PROVIDERS: ADMIT Internal Medicine; ATTEND Internal Medicine
DX: R53.1 Weakness (principal); N39.0 Urinary tract infection, site not specified; B96.20 Unspecified Escherichia coli [E. coli] as the cause of diseases classified elsewhere; R19.7 Diarrhea, unspecified; R33.8 Other retention of urine; G35 Multiple sclerosis; K21.9 Gastro-esophageal reflux disease without esophagitis; G89.29 Other chronic pain; Z20.822 Contact with and (suspected) exposure to COVID-19; F32.9 Major depressive disorder, single episode, unspecified; F17.200 Nicotine dependence, unspecified, uncomplicated; M81.0 Age-related osteoporosis without current pathological fracture; M25.551 Pain in right hip; J42 Unspecified chronic bronchitis; M79.642 Pain in left hand; Z79.82 Long term (current) use of aspirin; Z79.899 Other long term (current) drug therapy; Z88.2 Allergy status to sulfonamides; Z88.8 Allergy status to other drugs, medicaments and biological substances; Z85.3 Personal history of malignant neoplasm of breast; Z90.49 Acquired absence of other specified parts of digestive tract; Z98.49 Cataract extraction status, unspecified eye; Z99.81 Dependence on supplemental oxygen
CPT/HCPCS: 73120-LT; 97110-GP; 97116-GP; 97535-GO; A9270-GY; U0002

== ENCOUNTER 2021-12-18 10:55 | Emergency (ER) | payer MEDICARE, MEDICAID ==
[2021-12-18 11:05] VITALS: BP 146/79; PULSE 86
[2021-12-18] MEDS ORDERED: Take Home: Ciprofloxacin 500 MG Tab, 2 Tab Pack PO ONE (12:41)
== END 2021-12-18 12:58 | disposition home or self-care (01) ==
LOC: VM.ED 10:55
DX: N39.0 Urinary tract infection, site not specified (principal); G35 Multiple sclerosis; Z88.8 Allergy status to other drugs, medicaments and biological substances; Z88.2 Allergy status to sulfonamides; Z79.82 Long term (current) use of aspirin; Z79.899 Other long term (current) drug therapy; Z72.0 Tobacco use
CPT/HCPCS: 73630-LT; 81001; 87086; 99283

== ENCOUNTER 2022-04-05 18:48 | Inpatient (IN) | payer MEDICARE, MEDICAID ==
[2022-04-05] MEDS ORDERED: Acetaminophen 500 MG Tab PO ONE (19:07)
[2022-04-05] MEDS ORDERED: Sodium Chloride 0.9% 1,000 ML IV SCH (19:15)
[2022-04-05 19:19] LABS: BARBITURATE SCREEN,URINE NEGATIVE (NEGATIVE); BENZODIAZEPINES SCREEN,URINE NEGATIVE (NEGATIVE); BUPRENORPHINE SCREEN,URINE NEGATIVE (NEGATIVE); METHAMPHETAMINE SCREEN, URINE NEGATIVE (NEGATIVE); THC SCREEN,URINE 50 NG/ML NEGATIVE (NEGATIVE)
[2022-04-05] MEDS ORDERED: cefTRIAXone 2 GM Vial IVPUSH ONE (19:22)
[2022-04-05 20:14] LABS: PTT,PARTIAL THROMBOPLSTIN TIME 27.2 SEC (20.5-30.9)
[2022-04-05 20:16] LABS: ANION GAP 12.7 mmol/L (5-15)
[2022-04-05 20:26] LABS: CORONAVIRUS COVID-19 NAA NEGATIVE (NEGATIVE); RESPIRATORY SYNCYTIAL VIR NAA NEGATIVE (NEGATIVE)
[2022-04-05] MEDS ORDERED: Ondansetron 4 MG Tab.DIS PO PRN (23:10)
[2022-04-05] MEDS: Sodium Chloride 0.9% 1,000 ML IV SCH (23:32)
[2022-04-06] MEDS ORDERED: Pregabalin 50 MG Cap PO PRN (00:13)
[2022-04-06] MEDS ORDERED: Albuterol HFA 18 Gm Inhaler INH PRN (00:13)
[2022-04-06] MEDS ORDERED: traZODone 50 MG Tab PO PRN (00:29)
[2022-04-06] MEDS: traMADol 50 MG Tab PO SCH ×3 (01:23→20:06)
[2022-04-06] MEDS: Pantoprazole 40 MG Tab.CR PO SCH (06:06)
[2022-04-06 07:22] LABS: ANION GAP 14.4 mmol/L (5-15)
[2022-04-06] MEDS ORDERED: Potassium Chloride 10 MEQ Tab.ER PO ONE (08:21)
[2022-04-06] MEDS ORDERED: LANSOPRAZOLE 30 MG PO SCH (09:00)
[2022-04-06] MEDS: Folic Acid 0.4 MG Tab PO SCH (09:24)
[2022-04-06] MEDS: Pregabalin 50 MG Cap PO SCH ×3 (09:25→20:05)
[2022-04-06] MEDS: DULoxetine 60 MG Cap PO SCH ×2 (09:25→20:06)
[2022-04-06] MEDS: Aspirin 81 MG Tab.EC PO SCH (09:25)
[2022-04-06] MEDS: Fluconazole 100 MG Tab PO SCH (09:25)
[2022-04-06] MEDS: Calcium Carbonate/Vitamin D3 1250 MG-5 MCG Tab PO SCH ×2 (09:25→20:05)
[2022-04-06] MEDS: Lactobacillus Rhamnosus GG (Probiotic) Cap PO SCH (09:26)
[2022-04-06] MEDS: Cholecalciferol (Vitamin D3) 25 MCG Tab PO SCH (09:26)
[2022-04-06] MEDS: Nicotine 14 MG/24 Hr Patch TRDERM SCH (09:35)
[2022-04-06] MEDS: Sodium Chloride 0.9% 1,000 ML IV SCH (17:58)
[2022-04-06] MEDS: cefTRIAXone 2 GM Vial IVPUSH SCH (20:04)
[2022-04-06] MEDS: traZODone 50 MG Tab PO SCH (20:05)
[2022-04-06] MEDS: Zolpidem 5 MG Tab PO SCH (20:07)
[2022-04-06] MEDS ORDERED: cefTRIAXone 2 GM Vial IVPUSH ONE (21:00)
[2022-04-07] MEDS: Sodium Chloride 0.9% 1,000 ML IV SCH (01:41)
[2022-04-07] MEDS: Pantoprazole 40 MG Tab.CR PO SCH (06:26)
[2022-04-07 07:43] LABS: ANION GAP 10.9 mmol/L (5-15)
[2022-04-07] MEDS: Fluconazole 100 MG Tab PO SCH (08:19)
[2022-04-07] MEDS: Pregabalin 50 MG Cap PO SCH ×3 (08:19→20:00)
[2022-04-07] MEDS: Folic Acid 0.4 MG Tab PO SCH (08:20)
[2022-04-07] MEDS: DULoxetine 60 MG Cap PO SCH ×2 (08:20→20:00)
[2022-04-07] MEDS: traMADol 50 MG Tab PO SCH ×2 (08:20→20:01)
[2022-04-07] MEDS: Calcium Carbonate/Vitamin D3 1250 MG-5 MCG Tab PO SCH ×2 (08:20→20:00)
[2022-04-07] MEDS: Aspirin 81 MG Tab.EC PO SCH (08:21)
[2022-04-07] MEDS: Lactobacillus Rhamnosus GG (Probiotic) Cap PO SCH (08:21)
[2022-04-07] MEDS: Cholecalciferol (Vitamin D3) 25 MCG Tab PO SCH (08:21)
[2022-04-07] MEDS: Nicotine 14 MG/24 Hr Patch TRDERM SCH (08:21)
[2022-04-07] MEDS: Enoxaparin 40 MG/0.4 ML Syringe SUBCUT SCH (12:21)
[2022-04-07] MEDS: GLATIRAMER 20 MG/ML SQ SCH (16:17)
[2022-04-07] MEDS: traZODone 50 MG Tab PO SCH (20:00)
[2022-04-07] MEDS: cefTRIAXone 2 GM Vial IVPUSH SCH (20:00)
[2022-04-07] MEDS: Zolpidem 5 MG Tab PO SCH (20:02)
[2022-04-08] MEDS: Pantoprazole 40 MG Tab.CR PO SCH (06:35)
[2022-04-08 06:59] LABS: ANION GAP 11.9 mmol/L (5-15)
[2022-04-08] MEDS: Fluconazole 100 MG Tab PO SCH (08:37)
[2022-04-08] MEDS: Cholecalciferol (Vitamin D3) 25 MCG Tab PO SCH (08:38)
[2022-04-08] MEDS: Aspirin 81 MG Tab.EC PO SCH (08:38)
[2022-04-08] MEDS: Lactobacillus Rhamnosus GG (Probiotic) Cap PO SCH (08:38)
[2022-04-08] MEDS: Folic Acid 0.4 MG Tab PO SCH (08:38)
[2022-04-08] MEDS: Calcium Carbonate/Vitamin D3 1250 MG-5 MCG Tab PO SCH ×2 (08:38→19:59)
[2022-04-08] MEDS: DULoxetine 60 MG Cap PO SCH ×2 (08:38→19:59)
[2022-04-08] MEDS: Pregabalin 50 MG Cap PO SCH ×3 (08:39→19:59)
[2022-04-08] MEDS: traMADol 50 MG Tab PO SCH ×2 (08:39→20:01)
[2022-04-08] MEDS: Nicotine 14 MG/24 Hr Patch TRDERM SCH (08:41)
[2022-04-08] MEDS: GLATIRAMER 20 MG/ML SQ SCH (08:44)
[2022-04-08] MEDS: Enoxaparin 40 MG/0.4 ML Syringe SUBCUT SCH (13:56)
[2022-04-08] MEDS: cefTRIAXone 2 GM Vial IVPUSH SCH (19:57)
[2022-04-08] MEDS: traZODone 50 MG Tab PO SCH (19:59)
[2022-04-08] MEDS: Zolpidem 5 MG Tab PO SCH (20:00)
[2022-04-09] MEDS: Pantoprazole 40 MG Tab.CR PO SCH (06:04)
[2022-04-09] MEDS: GLATIRAMER 20 MG/ML SQ SCH (08:31)
[2022-04-09] MEDS: Folic Acid 0.4 MG Tab PO SCH (08:32)
[2022-04-09] MEDS: Pregabalin 50 MG Cap PO SCH ×3 (08:32→20:00)
[2022-04-09] MEDS: traMADol 50 MG Tab PO SCH ×2 (08:32→20:00)
[2022-04-09] MEDS: Fluconazole 100 MG Tab PO SCH (08:32)
[2022-04-09] MEDS: Calcium Carbonate/Vitamin D3 1250 MG-5 MCG Tab PO SCH ×2 (08:32→20:01)
[2022-04-09] MEDS: Aspirin 81 MG Tab.EC PO SCH (08:32)
[2022-04-09] MEDS: Cholecalciferol (Vitamin D3) 25 MCG Tab PO SCH (08:32)
[2022-04-09] MEDS: DULoxetine 60 MG Cap PO SCH ×2 (08:32→20:00)
[2022-04-09] MEDS: Lactobacillus Rhamnosus GG (Probiotic) Cap PO SCH (08:32)
[2022-04-09] MEDS: Nicotine 14 MG/24 Hr Patch TRDERM SCH (08:37)
[2022-04-09] MEDS: Enoxaparin 40 MG/0.4 ML Syringe SUBCUT SCH (12:31)
[2022-04-09] MEDS ORDERED: Naproxen 500 MG Tab PO PRN (14:59)
[2022-04-09] MEDS: Sodium Chloride 0.9% 10 ML Syringe FLUSH PRN (19:48)
[2022-04-09] MEDS: cefTRIAXone 2 GM Vial IVPUSH SCH (19:49)
[2022-04-09] MEDS: Zolpidem 5 MG Tab PO SCH (20:01)
[2022-04-09] MEDS: traZODone 50 MG Tab PO SCH (20:01)
[2022-04-10] MEDS: Pantoprazole 40 MG Tab.CR PO SCH (06:14)
[2022-04-10 08:02] LABS: ANION GAP 11.3 mmol/L (5-15)
[2022-04-10] MEDS: Fluconazole 100 MG Tab PO SCH (08:31)
[2022-04-10] MEDS: Pregabalin 50 MG Cap PO SCH ×3 (08:31→20:00)
[2022-04-10] MEDS: Aspirin 81 MG Tab.EC PO SCH (08:31)
[2022-04-10] MEDS: traMADol 50 MG Tab PO SCH ×2 (08:32→20:00)
[2022-04-10] MEDS: DULoxetine 60 MG Cap PO SCH ×2 (08:32→20:00)
[2022-04-10] MEDS: Lactobacillus Rhamnosus GG (Probiotic) Cap PO SCH (08:32)
[2022-04-10] MEDS: Calcium Carbonate/Vitamin D3 1250 MG-5 MCG Tab PO SCH ×2 (08:32→20:00)
[2022-04-10] MEDS: Folic Acid 0.4 MG Tab PO SCH (08:32)
[2022-04-10] MEDS: GLATIRAMER 20 MG/ML SQ SCH (08:32)
[2022-04-10] MEDS: Cholecalciferol (Vitamin D3) 25 MCG Tab PO SCH (08:32)
[2022-04-10] MEDS: Amoxicillin/Clavulanate K 500-125 MG Tab PO SCH ×2 (10:57→18:06)
[2022-04-10] MEDS: Nicotine 14 MG/24 Hr Patch TRDERM SCH ×2 (11:20→11:27)
[2022-04-10] MEDS: Enoxaparin 40 MG/0.4 ML Syringe SUBCUT SCH (13:58)
[2022-04-10] MEDS: Sodium Chloride 0.9% 10 ML Syringe FLUSH PRN (20:00)
[2022-04-10] MEDS: Zolpidem 5 MG Tab PO SCH (20:01)
[2022-04-10] MEDS: traZODone 50 MG Tab PO SCH (20:01)
[2022-04-11 05:34] VITALS: BP 144/74; PULSE 78
[2022-04-11] MEDS: Pantoprazole 40 MG Tab.CR PO SCH (06:12)
[2022-04-11] MEDS: traMADol 50 MG Tab PO SCH (08:41)
[2022-04-11] MEDS: Pregabalin 50 MG Cap PO SCH ×2 (08:41→13:12)
[2022-04-11] MEDS: Aspirin 81 MG Tab.EC PO SCH (08:43)
[2022-04-11] MEDS: Calcium Carbonate/Vitamin D3 1250 MG-5 MCG Tab PO SCH (08:43)
[2022-04-11] MEDS: DULoxetine 60 MG Cap PO SCH (08:43)
[2022-04-11] MEDS: Lactobacillus Rhamnosus GG (Probiotic) Cap PO SCH (08:43)
[2022-04-11] MEDS: Cholecalciferol (Vitamin D3) 25 MCG Tab PO SCH (08:43)
[2022-04-11] MEDS: Amoxicillin/Clavulanate K 500-125 MG Tab PO SCH (08:43)
[2022-04-11] MEDS: Folic Acid 0.4 MG Tab PO SCH (08:44)
[2022-04-11] MEDS: Nicotine 14 MG/24 Hr Patch TRDERM SCH (08:45)
[2022-04-11] MEDS: GLATIRAMER 20 MG/ML SQ SCH (10:22)
[2022-04-11] MEDS: Enoxaparin 40 MG/0.4 ML Syringe SUBCUT SCH (13:11)
[2022-04-11] MEDS ORDERED: Albuterol/Ipratropium 3.0-0.5 MG/3 ML Neb Soln NEB SCH (15:00)
[2022-04-11] MEDS ORDERED: Amoxicillin/Clavulanate K 875-125 MG Tab PO SCH (21:00)
== END 2022-04-11 13:59 | disposition home or self-care (01) | DRG 872 ==
LOC: VM.ED 18:48 → VM.MS 21:18
PROVIDERS: ADMIT Nurse Practitioner Family; ATTEND Internal Medicine
DX: A41.9 Sepsis, unspecified organism (principal); A41.51 Sepsis due to Escherichia coli [E. coli]; N17.9 Acute kidney failure, unspecified; N39.0 Urinary tract infection, site not specified; W19.XXXA Unspecified fall, initial encounter; B96.20 Unspecified Escherichia coli [E. coli] as the cause of diseases classified elsewhere; G35 Multiple sclerosis; N31.9 Neuromuscular dysfunction of bladder, unspecified; Z66 Do not resuscitate; G47.33 Obstructive sleep apnea (adult) (pediatric); G89.29 Other chronic pain; M81.0 Age-related osteoporosis without current pathological fracture; Z99.81 Dependence on supplemental oxygen; B37.9 Candidiasis, unspecified; Z20.822 Contact with and (suspected) exposure to COVID-19; R21 Rash and other nonspecific skin eruption; G47.00 Insomnia, unspecified; G62.9 Polyneuropathy, unspecified; B37.2 Candidiasis of skin and nail; E86.0 Dehydration; R33.9 Retention of urine, unspecified; H54.7 Unspecified visual loss; G89.4 Chronic pain syndrome; K59.09 Other constipation; F17.210 Nicotine dependence, cigarettes, uncomplicated; R32 Unspecified urinary incontinence; M54.9 Dorsalgia, unspecified; G70.9 Myoneural disorder, unspecified; F41.9 Anxiety disorder, unspecified; F32.A Depression, unspecified; Z98.84 Bariatric surgery status; Z90.49 Acquired absence of other specified parts of digestive tract; Z88.2 Allergy status to sulfonamides; Z79.899 Other long term (current) drug therapy; Z88.8 Allergy status to other drugs, medicaments and biological substances; Z79.82 Long term (current) use of aspirin; Z88.5 Allergy status to narcotic agent; Z98.51 Tubal ligation status; Z90.12 Acquired absence of left breast and nipple
CPT/HCPCS: 0241U; 36415; 51798; 70450; 71045; 71046; 80048; 80053; 80305-QW; 81001; 82550; 83605; 83735; 84100; 84145; 84484; 85025; 85027; 85610; 85730; 86140; 87040; 87086; 87088; 87186; 93005; 93010; 96361; 96374; 97110-GP; 97162-GP; 97530-GP; 99284; 99285-25; A9270-GY; J0696; J1650; J3490; J7030

== ENCOUNTER 2022-04-11 11:43 | Inpatient (IN) | payer MEDICARE, MEDICAID ==
[2022-04-11] MEDS ORDERED: traZODone 50 MG Tab PO PRN (12:25)
[2022-04-11] MEDS ORDERED: Enoxaparin 40 MG/0.4 ML Syringe SUBCUT SCH (13:00)
[2022-04-11] MEDS: Pregabalin 50 MG Cap PO SCH ×2 (15:34→22:09)
[2022-04-11] MEDS: Albuterol/Ipratropium 3.0-0.5 MG/3 ML Neb Soln NEB SCH ×2 (15:58→22:15)
[2022-04-11] MEDS: Amoxicillin/Clavulanate K 500-125 MG Tab PO SCH (18:51)
[2022-04-11] MEDS: Calcium Carbonate/Vitamin D3 1250 MG-5 MCG Tab PO SCH (22:09)
[2022-04-11] MEDS: DULoxetine 60 MG Cap PO SCH (22:10)
[2022-04-11] MEDS: traZODone 50 MG Tab PO SCH (22:11)
[2022-04-11] MEDS: Zolpidem 5 MG Tab PO SCH (22:12)
[2022-04-11] MEDS: traMADol 50 MG Tab PO SCH (22:14)
[2022-04-12] MEDS: Pantoprazole 40 MG Tab.CR PO SCH (06:11)
[2022-04-12] MEDS: Albuterol/Ipratropium 3.0-0.5 MG/3 ML Neb Soln NEB SCH ×3 (06:11→22:05)
[2022-04-12 07:15] LABS: ANION GAP 13.9 mmol/L (5-15)
[2022-04-12] MEDS: traMADol 50 MG Tab PO SCH ×2 (09:10→20:02)
[2022-04-12] MEDS: Pregabalin 50 MG Cap PO SCH ×3 (09:10→20:01)
[2022-04-12] MEDS: Folic Acid 0.4 MG Tab PO SCH (09:11)
[2022-04-12] MEDS: DULoxetine 60 MG Cap PO SCH ×2 (09:11→20:01)
[2022-04-12] MEDS: Aspirin 81 MG Tab.EC PO SCH (09:11)
[2022-04-12] MEDS: Calcium Carbonate/Vitamin D3 1250 MG-5 MCG Tab PO SCH ×2 (09:11→20:01)
[2022-04-12] MEDS: Amoxicillin/Clavulanate K 500-125 MG Tab PO SCH ×2 (09:11→17:36)
[2022-04-12] MEDS: Cholecalciferol (Vitamin D3) 25 MCG Tab PO SCH (09:11)
[2022-04-12] MEDS: Lactobacillus Rhamnosus GG (Probiotic) Cap PO SCH (09:11)
[2022-04-12] MEDS: Nicotine 14 MG/24 Hr Patch TRDERM SCH (09:12)
[2022-04-12] MEDS: traZODone 50 MG Tab PO SCH (20:02)
[2022-04-12] MEDS: Zolpidem 5 MG Tab PO SCH (20:03)
[2022-04-13] MEDS: Pantoprazole 40 MG Tab.CR PO SCH (06:18)
[2022-04-13] MEDS: Albuterol/Ipratropium 3.0-0.5 MG/3 ML Neb Soln NEB SCH ×3 (07:06→22:05)
[2022-04-13] MEDS: Calcium Carbonate/Vitamin D3 1250 MG-5 MCG Tab PO SCH ×2 (08:35→20:04)
[2022-04-13] MEDS: Psyllium Husk Powder Sugar Free 5.85 GM Packet PO SCH (08:35)
[2022-04-13] MEDS: Aspirin 81 MG Tab.EC PO SCH (08:36)
[2022-04-13] MEDS: Pregabalin 50 MG Cap PO SCH ×3 (08:36→20:04)
[2022-04-13] MEDS: Cholecalciferol (Vitamin D3) 25 MCG Tab PO SCH (08:36)
[2022-04-13] MEDS: DULoxetine 60 MG Cap PO SCH ×2 (08:36→20:04)
[2022-04-13] MEDS: traMADol 50 MG Tab PO SCH ×2 (08:36→20:04)
[2022-04-13] MEDS: Folic Acid 0.4 MG Tab PO SCH (08:36)
[2022-04-13] MEDS: Lactobacillus Rhamnosus GG (Probiotic) Cap PO SCH (08:36)
[2022-04-13] MEDS: Amoxicillin/Clavulanate K 500-125 MG Tab PO SCH ×2 (08:36→17:43)
[2022-04-13] MEDS: Nicotine 14 MG/24 Hr Patch TRDERM SCH (08:37)
[2022-04-13] MEDS: Ondansetron 4 MG Tab.DIS PO PRN (11:15)
[2022-04-13] MEDS: Zolpidem 5 MG Tab PO SCH (20:05)
[2022-04-13] MEDS: traZODone 50 MG Tab PO SCH (20:05)
[2022-04-14] MEDS: Pantoprazole 40 MG Tab.CR PO SCH (06:30)
[2022-04-14] MEDS: Albuterol/Ipratropium 3.0-0.5 MG/3 ML Neb Soln NEB SCH ×3 (07:04→22:03)
[2022-04-14] MEDS: Calcium Carbonate/Vitamin D3 1250 MG-5 MCG Tab PO SCH ×2 (08:00→20:19)
[2022-04-14] MEDS: Folic Acid 0.4 MG Tab PO SCH (08:00)
[2022-04-14] MEDS: traMADol 50 MG Tab PO SCH ×2 (08:00→20:20)
[2022-04-14] MEDS: Pregabalin 50 MG Cap PO SCH ×3 (08:02→20:20)
[2022-04-14] MEDS: Aspirin 81 MG Tab.EC PO SCH (08:03)
[2022-04-14] MEDS: Lactobacillus Rhamnosus GG (Probiotic) Cap PO SCH (08:03)
[2022-04-14] MEDS: Amoxicillin/Clavulanate K 500-125 MG Tab PO SCH ×2 (08:03→17:55)
[2022-04-14] MEDS: Cholecalciferol (Vitamin D3) 25 MCG Tab PO SCH (08:03)
[2022-04-14] MEDS: Nicotine 14 MG/24 Hr Patch TRDERM SCH (08:04)
[2022-04-14] MEDS: Psyllium Husk Powder Sugar Free 5.85 GM Packet PO SCH (08:04)
[2022-04-14] MEDS: DULoxetine 60 MG Cap PO SCH ×2 (08:05→20:19)
[2022-04-14 09:15] LABS: ANION GAP 12.2 mmol/L (5-15)
[2022-04-14] MEDS: traZODone 50 MG Tab PO SCH (20:20)
[2022-04-14] MEDS: Zolpidem 5 MG Tab PO SCH (20:21)
[2022-04-15] MEDS: Pantoprazole 40 MG Tab.CR PO SCH (06:05)
[2022-04-15] MEDS: Albuterol/Ipratropium 3.0-0.5 MG/3 ML Neb Soln NEB SCH ×3 (06:05→22:19)
[2022-04-15] MEDS: Lactobacillus Rhamnosus GG (Probiotic) Cap PO SCH (08:39)
[2022-04-15] MEDS: Amoxicillin/Clavulanate K 500-125 MG Tab PO SCH ×2 (08:39→18:00)
[2022-04-15] MEDS: Calcium Carbonate/Vitamin D3 1250 MG-5 MCG Tab PO SCH ×2 (08:40→20:56)
[2022-04-15] MEDS: Pregabalin 50 MG Cap PO SCH ×3 (08:40→20:54)
[2022-04-15] MEDS: DULoxetine 60 MG Cap PO SCH ×2 (08:40→20:56)
[2022-04-15] MEDS: Folic Acid 0.4 MG Tab PO SCH (08:41)
[2022-04-15] MEDS: Cholecalciferol (Vitamin D3) 25 MCG Tab PO SCH (08:41)
[2022-04-15] MEDS: Aspirin 81 MG Tab.EC PO SCH (08:41)
[2022-04-15] MEDS: traMADol 50 MG Tab PO SCH ×2 (08:41→20:54)
[2022-04-15] MEDS: Psyllium Husk Powder Sugar Free 5.85 GM Packet PO SCH (08:44)
[2022-04-15] MEDS: Nicotine 14 MG/24 Hr Patch TRDERM SCH (08:46)
[2022-04-15] MEDS: D MANNOSE PO SCH (15:03)
[2022-04-15] MEDS: Zolpidem 5 MG Tab PO SCH (20:55)
[2022-04-15] MEDS: traZODone 50 MG Tab PO SCH (20:56)
[2022-04-16] MEDS: Albuterol/Ipratropium 3.0-0.5 MG/3 ML Neb Soln NEB SCH ×3 (06:37→22:16)
[2022-04-16] MEDS: Pantoprazole 40 MG Tab.CR PO SCH (06:37)
[2022-04-16] MEDS: DULoxetine 60 MG Cap PO SCH ×2 (08:35→21:28)
[2022-04-16] MEDS: Lactobacillus Rhamnosus GG (Probiotic) Cap PO SCH (08:35)
[2022-04-16] MEDS: Pregabalin 50 MG Cap PO SCH ×3 (08:35→21:27)
[2022-04-16] MEDS: traMADol 50 MG Tab PO SCH ×2 (08:35→21:30)
[2022-04-16] MEDS: Cholecalciferol (Vitamin D3) 25 MCG Tab PO SCH (08:36)
[2022-04-16] MEDS: Folic Acid 0.4 MG Tab PO SCH (08:36)
[2022-04-16] MEDS: Psyllium Husk Powder Sugar Free 5.85 GM Packet PO SCH (08:36)
[2022-04-16] MEDS: Calcium Carbonate/Vitamin D3 1250 MG-5 MCG Tab PO SCH ×2 (08:36→21:29)
[2022-04-16] MEDS: Aspirin 81 MG Tab.EC PO SCH (08:36)
[2022-04-16] MEDS: Nicotine 14 MG/24 Hr Patch TRDERM SCH (08:38)
[2022-04-16] MEDS: D MANNOSE PO SCH (08:38)
[2022-04-16] MEDS: Pregabalin 50 MG Cap PO PRN (14:37)
[2022-04-16] MEDS: Zolpidem 5 MG Tab PO SCH (21:28)
[2022-04-16] MEDS: traZODone 50 MG Tab PO SCH (21:29)
[2022-04-17] MEDS: Pantoprazole 40 MG Tab.CR PO SCH (06:27)
[2022-04-17] MEDS: Albuterol/Ipratropium 3.0-0.5 MG/3 ML Neb Soln NEB SCH ×2 (06:27→16:20)
[2022-04-17] MEDS: Calcium Carbonate/Vitamin D3 1250 MG-5 MCG Tab PO SCH ×2 (08:17→21:36)
[2022-04-17] MEDS: traMADol 50 MG Tab PO SCH ×2 (08:17→21:38)
[2022-04-17] MEDS: Lactobacillus Rhamnosus GG (Probiotic) Cap PO SCH (08:17)
[2022-04-17] MEDS: DULoxetine 60 MG Cap PO SCH ×2 (08:17→21:37)
[2022-04-17] MEDS: Cholecalciferol (Vitamin D3) 25 MCG Tab PO SCH (08:17)
[2022-04-17] MEDS: Aspirin 81 MG Tab.EC PO SCH (08:17)
[2022-04-17] MEDS: Folic Acid 0.4 MG Tab PO SCH (08:18)
[2022-04-17] MEDS: Psyllium Husk Powder Sugar Free 5.85 GM Packet PO SCH (08:18)
[2022-04-17] MEDS: D MANNOSE PO SCH (08:18)
[2022-04-17] MEDS: Pregabalin 50 MG Cap PO SCH ×3 (08:18→21:36)
[2022-04-17] MEDS: Nicotine 14 MG/24 Hr Patch TRDERM SCH (08:19)
[2022-04-17] MEDS: Zolpidem 5 MG Tab PO SCH (21:36)
[2022-04-17] MEDS: traZODone 50 MG Tab PO SCH (21:38)
[2022-04-18] MEDS: Albuterol/Ipratropium 3.0-0.5 MG/3 ML Neb Soln NEB SCH ×4 (00:14→22:01)
[2022-04-18] MEDS: Pantoprazole 40 MG Tab.CR PO SCH (06:23)
[2022-04-18] MEDS: D MANNOSE PO SCH (08:19)
[2022-04-18] MEDS: Psyllium Husk Powder Sugar Free 5.85 GM Packet PO SCH (08:19)
[2022-04-18] MEDS: Cholecalciferol (Vitamin D3) 25 MCG Tab PO SCH (08:20)
[2022-04-18] MEDS: Calcium Carbonate/Vitamin D3 1250 MG-5 MCG Tab PO SCH ×2 (08:20→21:40)
[2022-04-18] MEDS: DULoxetine 60 MG Cap PO SCH ×2 (08:21→21:39)
[2022-04-18] MEDS: Lactobacillus Rhamnosus GG (Probiotic) Cap PO SCH (08:21)
[2022-04-18] MEDS: traMADol 50 MG Tab PO SCH ×2 (08:21→21:39)
[2022-04-18] MEDS: Folic Acid 0.4 MG Tab PO SCH (08:21)
[2022-04-18] MEDS: Aspirin 81 MG Tab.EC PO SCH (08:21)
[2022-04-18] MEDS: Pregabalin 50 MG Cap PO SCH ×3 (08:22→21:40)
[2022-04-18] MEDS: Nicotine 14 MG/24 Hr Patch TRDERM SCH (08:25)
[2022-04-18 10:01] LABS: ANION GAP 12.4 mmol/L (5-15)
[2022-04-18] MEDS: traZODone 50 MG Tab PO SCH (21:40)
[2022-04-18] MEDS: Zolpidem 5 MG Tab PO SCH (21:40)
[2022-04-19] MEDS: Pregabalin 50 MG Cap PO PRN (03:28)
[2022-04-19] MEDS: Pantoprazole 40 MG Tab.CR PO SCH (06:12)
[2022-04-19] MEDS: Albuterol/Ipratropium 3.0-0.5 MG/3 ML Neb Soln NEB SCH ×2 (07:07→14:43)
[2022-04-19] MEDS: Lactobacillus Rhamnosus GG (Probiotic) Cap PO SCH (09:00)
[2022-04-19] MEDS: DULoxetine 60 MG Cap PO SCH ×2 (09:00→20:51)
[2022-04-19] MEDS: Cholecalciferol (Vitamin D3) 25 MCG Tab PO SCH (09:00)
[2022-04-19] MEDS: Folic Acid 0.4 MG Tab PO SCH (09:00)
[2022-04-19] MEDS: Pregabalin 50 MG Cap PO SCH ×3 (09:01→20:51)
[2022-04-19] MEDS: Psyllium Husk Powder Sugar Free 5.85 GM Packet PO SCH (09:01)
[2022-04-19] MEDS: Nicotine 14 MG/24 Hr Patch TRDERM SCH (09:01)
[2022-04-19] MEDS: Calcium Carbonate/Vitamin D3 1250 MG-5 MCG Tab PO SCH ×2 (09:01→20:50)
[2022-04-19] MEDS: Aspirin 81 MG Tab.EC PO SCH (09:02)
[2022-04-19] MEDS: traMADol 50 MG Tab PO SCH ×2 (09:02→20:50)
[2022-04-19] MEDS: D MANNOSE PO SCH (09:08)
[2022-04-19] MEDS: traZODone 50 MG Tab PO SCH (20:50)
[2022-04-19] MEDS: Zolpidem 5 MG Tab PO SCH (20:51)
[2022-04-20] MEDS: Albuterol/Ipratropium 3.0-0.5 MG/3 ML Neb Soln NEB SCH ×2 (00:15→06:20)
[2022-04-20] MEDS: Pantoprazole 40 MG Tab.CR PO SCH (06:20)
[2022-04-20] MEDS: Folic Acid 0.4 MG Tab PO SCH (08:03)
[2022-04-20] MEDS: DULoxetine 60 MG Cap PO SCH ×2 (08:03→21:23)
[2022-04-20] MEDS: Aspirin 81 MG Tab.EC PO SCH (08:03)
[2022-04-20] MEDS: Lactobacillus Rhamnosus GG (Probiotic) Cap PO SCH (08:03)
[2022-04-20] MEDS: Pregabalin 50 MG Cap PO SCH ×3 (08:04→21:20)
[2022-04-20] MEDS: traMADol 50 MG Tab PO SCH ×2 (08:04→21:20)
[2022-04-20] MEDS: Cholecalciferol (Vitamin D3) 25 MCG Tab PO SCH (08:04)
[2022-04-20] MEDS: Calcium Carbonate/Vitamin D3 1250 MG-5 MCG Tab PO SCH ×2 (08:04→21:27)
[2022-04-20] MEDS: D MANNOSE PO SCH ×2 (08:05→21:30)
[2022-04-20] MEDS: Psyllium Husk Powder Sugar Free 5.85 GM Packet PO SCH (08:05)
[2022-04-20] MEDS ORDERED: Albuterol/Ipratropium 3.0-0.5 MG/3 ML Neb Soln NEB PRN (08:18)
[2022-04-20] MEDS: Nicotine 7 MG/24 Hr Patch TRDERM SCH (12:38)
[2022-04-20] MEDS: traZODone 50 MG Tab PO SCH (21:20)
[2022-04-20] MEDS: Zolpidem 5 MG Tab PO SCH (21:30)
[2022-04-21] MEDS: Pantoprazole 40 MG Tab.CR PO SCH (06:51)
[2022-04-21] MEDS: Pregabalin 50 MG Cap PO SCH ×3 (09:28→22:10)
[2022-04-21] MEDS: Psyllium Husk Powder Sugar Free 5.85 GM Packet PO SCH (09:28)
[2022-04-21] MEDS: Aspirin 81 MG Tab.EC PO SCH (09:29)
[2022-04-21] MEDS: traMADol 50 MG Tab PO SCH ×2 (09:29→22:10)
[2022-04-21] MEDS: Folic Acid 0.4 MG Tab PO SCH (09:30)
[2022-04-21] MEDS: Calcium Carbonate/Vitamin D3 1250 MG-5 MCG Tab PO SCH ×2 (09:30→22:18)
[2022-04-21] MEDS: Lactobacillus Rhamnosus GG (Probiotic) Cap PO SCH (09:30)
[2022-04-21] MEDS: Cholecalciferol (Vitamin D3) 25 MCG Tab PO SCH (09:30)
[2022-04-21] MEDS: DULoxetine 60 MG Cap PO SCH ×2 (09:30→22:10)
[2022-04-21] MEDS: D MANNOSE PO SCH ×2 (09:31→22:18)
[2022-04-21] MEDS: Nicotine 7 MG/24 Hr Patch TRDERM SCH (09:31)
[2022-04-21] MEDS ORDERED: Nystatin Crm 30 GM Tube TOP PRN (13:40)
[2022-04-21] MEDS: Zolpidem 5 MG Tab PO SCH (22:10)
[2022-04-21] MEDS: traZODone 50 MG Tab PO SCH (22:11)
[2022-04-21] MEDS: SYSTANE EYE SCH (22:14)
[2022-04-22] MEDS: Pregabalin 50 MG Cap PO PRN (00:50)
[2022-04-22] MEDS: Ondansetron 4 MG Tab.DIS PO PRN (00:50)
[2022-04-22] MEDS: Pantoprazole 40 MG Tab.CR PO SCH (06:54)
[2022-04-22 07:27] LABS: ANION GAP 12.1 mmol/L (5-15)
[2022-04-22] MEDS: Lactobacillus Rhamnosus GG (Probiotic) Cap PO SCH (09:17)
[2022-04-22] MEDS: Pregabalin 50 MG Cap PO SCH ×3 (09:17→20:26)
[2022-04-22] MEDS: Folic Acid 0.4 MG Tab PO SCH (09:17)
[2022-04-22] MEDS: Cholecalciferol (Vitamin D3) 25 MCG Tab PO SCH (09:18)
[2022-04-22] MEDS: traMADol 50 MG Tab PO SCH ×2 (09:19→20:28)
[2022-04-22] MEDS: Calcium Carbonate/Vitamin D3 1250 MG-5 MCG Tab PO SCH ×2 (09:20→20:27)
[2022-04-22] MEDS: Psyllium Husk Powder Sugar Free 5.85 GM Packet PO SCH (09:20)
[2022-04-22] MEDS: DULoxetine 60 MG Cap PO SCH ×2 (09:20→20:27)
[2022-04-22] MEDS: Nicotine 7 MG/24 Hr Patch TRDERM SCH (09:21)
[2022-04-22] MEDS: D MANNOSE PO SCH ×2 (09:22→20:32)
[2022-04-22] MEDS: traZODone 50 MG Tab PO SCH (20:27)
[2022-04-22] MEDS: Zolpidem 5 MG Tab PO SCH (20:28)
[2022-04-22] MEDS: SYSTANE EYE EYEBOTH PRN (20:34)
[2022-04-22] MEDS: SYSTANE EYE SCH (20:35)
[2022-04-23] MEDS: Pantoprazole 40 MG Tab.CR PO SCH (06:17)
[2022-04-23] MEDS: Lactobacillus Rhamnosus GG (Probiotic) Cap PO SCH (09:13)
[2022-04-23] MEDS: Calcium Carbonate/Vitamin D3 1250 MG-5 MCG Tab PO SCH ×2 (09:13→20:00)
[2022-04-23] MEDS: traMADol 50 MG Tab PO SCH ×2 (09:13→20:00)
[2022-04-23] MEDS: Psyllium Husk Powder Sugar Free 5.85 GM Packet PO SCH (09:14)
[2022-04-23] MEDS: Pregabalin 50 MG Cap PO SCH ×3 (09:14→20:01)
[2022-04-23] MEDS: Cholecalciferol (Vitamin D3) 25 MCG Tab PO SCH (09:14)
[2022-04-23] MEDS: DULoxetine 60 MG Cap PO SCH ×2 (09:14→20:01)
[2022-04-23] MEDS: Folic Acid 0.4 MG Tab PO SCH (09:26)
[2022-04-23] MEDS: Nicotine 7 MG/24 Hr Patch TRDERM SCH (09:27)
[2022-04-23] MEDS: D MANNOSE PO SCH ×2 (09:28→20:05)
[2022-04-23] MEDS: traZODone 50 MG Tab PO SCH (20:02)
[2022-04-23] MEDS: Zolpidem 5 MG Tab PO SCH (20:02)
[2022-04-23] MEDS: SYSTANE EYE SCH (20:05)
[2022-04-24] MEDS: Pantoprazole 40 MG Tab.CR PO SCH (06:37)
[2022-04-24] MEDS: Lactobacillus Rhamnosus GG (Probiotic) Cap PO SCH (08:10)
[2022-04-24] MEDS: DULoxetine 60 MG Cap PO SCH ×2 (08:10→21:06)
[2022-04-24] MEDS: traMADol 50 MG Tab PO SCH ×2 (08:10→21:09)
[2022-04-24] MEDS: Pregabalin 50 MG Cap PO SCH ×3 (08:11→21:08)
[2022-04-24] MEDS: Cholecalciferol (Vitamin D3) 25 MCG Tab PO SCH (08:11)
[2022-04-24] MEDS: Folic Acid 0.4 MG Tab PO SCH (08:11)
[2022-04-24] MEDS: Psyllium Husk Powder Sugar Free 5.85 GM Packet PO SCH (08:12)
[2022-04-24] MEDS: Nicotine 7 MG/24 Hr Patch TRDERM SCH (08:13)
[2022-04-24] MEDS: Calcium Carbonate/Vitamin D3 1250 MG-5 MCG Tab PO SCH ×2 (08:21→21:11)
[2022-04-24] MEDS: D MANNOSE PO SCH ×2 (08:45→21:10)
[2022-04-24] MEDS: Zolpidem 5 MG Tab PO SCH (21:08)
[2022-04-24] MEDS: SYSTANE EYE EYEBOTH PRN (21:10)
[2022-04-24] MEDS: traZODone 50 MG Tab PO SCH (21:10)
[2022-04-24] MEDS: SYSTANE EYE SCH (21:12)
[2022-04-25] MEDS: Pantoprazole 40 MG Tab.CR PO SCH (06:23)
[2022-04-25 07:13] LABS: ANION GAP 13.2 mmol/L (5-15)
[2022-04-25] MEDS: Cholecalciferol (Vitamin D3) 25 MCG Tab PO SCH (08:39)
[2022-04-25] MEDS: traMADol 50 MG Tab PO SCH ×2 (08:39→20:38)
[2022-04-25] MEDS: DULoxetine 60 MG Cap PO SCH ×2 (08:39→20:39)
[2022-04-25] MEDS: Folic Acid 0.4 MG Tab PO SCH (08:39)
[2022-04-25] MEDS: Calcium Carbonate/Vitamin D3 1250 MG-5 MCG Tab PO SCH ×2 (08:39→20:45)
[2022-04-25] MEDS: Psyllium Husk Powder Sugar Free 5.85 GM Packet PO SCH (08:40)
[2022-04-25] MEDS: Pregabalin 50 MG Cap PO SCH ×3 (08:40→20:39)
[2022-04-25] MEDS: Lactobacillus Rhamnosus GG (Probiotic) Cap PO SCH (08:40)
[2022-04-25] MEDS: Nicotine 7 MG/24 Hr Patch TRDERM SCH (08:44)
[2022-04-25] MEDS: D MANNOSE PO SCH ×2 (08:51→20:42)
[2022-04-25] MEDS: Zolpidem 5 MG Tab PO SCH (20:40)
[2022-04-25] MEDS: traZODone 50 MG Tab PO SCH (20:40)
[2022-04-25] MEDS: SYSTANE EYE SCH (20:41)
[2022-04-26] MEDS: Pantoprazole 40 MG Tab.CR PO SCH (06:01)
[2022-04-26] MEDS: Psyllium Husk Powder Sugar Free 5.85 GM Packet PO SCH ×2 (14:11→14:17)
[2022-04-26] MEDS: Folic Acid 0.4 MG Tab PO SCH (14:12)
[2022-04-26] MEDS: Nicotine 7 MG/24 Hr Patch TRDERM SCH (14:12)
[2022-04-26] MEDS: traMADol 50 MG Tab PO SCH ×2 (14:13→20:15)
[2022-04-26] MEDS: Pregabalin 50 MG Cap PO SCH ×3 (14:13→20:14)
[2022-04-26] MEDS: Lactobacillus Rhamnosus GG (Probiotic) Cap PO SCH (14:13)
[2022-04-26] MEDS: Cholecalciferol (Vitamin D3) 25 MCG Tab PO SCH (14:13)
[2022-04-26] MEDS: D MANNOSE PO SCH ×2 (14:18→20:20)
[2022-04-26] MEDS: DULoxetine 60 MG Cap PO SCH ×2 (14:23→20:17)
[2022-04-26] MEDS: Calcium Carbonate/Vitamin D3 1250 MG-5 MCG Tab PO SCH ×2 (14:23→20:17)
[2022-04-26] MEDS: traZODone 50 MG Tab PO SCH (20:15)
[2022-04-26] MEDS: Zolpidem 5 MG Tab PO SCH (20:17)
[2022-04-26] MEDS: SYSTANE EYE SCH (20:18)
[2022-04-27] MEDS: Pantoprazole 40 MG Tab.CR PO SCH (06:32)
[2022-04-27] MEDS: Calcium Carbonate/Vitamin D3 1250 MG-5 MCG Tab PO SCH ×2 (08:16→20:26)
[2022-04-27] MEDS: DULoxetine 60 MG Cap PO SCH ×2 (08:16→20:24)
[2022-04-27] MEDS: Pregabalin 50 MG Cap PO SCH ×3 (08:16→20:24)
[2022-04-27] MEDS: Psyllium Husk Powder Sugar Free 5.85 GM Packet PO SCH (08:16)
[2022-04-27] MEDS: traMADol 50 MG Tab PO SCH ×2 (08:17→20:24)
[2022-04-27] MEDS: Lactobacillus Rhamnosus GG (Probiotic) Cap PO SCH (08:17)
[2022-04-27] MEDS: Cholecalciferol (Vitamin D3) 25 MCG Tab PO SCH (08:17)
[2022-04-27] MEDS: Nicotine 7 MG/24 Hr Patch TRDERM SCH (08:18)
[2022-04-27] MEDS: D MANNOSE PO SCH ×2 (08:19→20:22)
[2022-04-27] MEDS: Folic Acid 0.4 MG Tab PO SCH (08:22)
[2022-04-27] MEDS: SYSTANE EYE SCH (20:23)
[2022-04-27] MEDS: Zolpidem 5 MG Tab PO SCH (20:26)
[2022-04-27] MEDS: traZODone 50 MG Tab PO SCH (20:26)
[2022-04-28] MEDS: Pantoprazole 40 MG Tab.CR PO SCH (06:41)
[2022-04-28 07:08] LABS: ANION GAP 12.2 mmol/L (5-15)
[2022-04-28] MEDS: Pregabalin 50 MG Cap PO SCH ×3 (08:35→20:13)
[2022-04-28] MEDS: Folic Acid 0.4 MG Tab PO SCH (08:35)
[2022-04-28] MEDS: traMADol 50 MG Tab PO SCH ×2 (08:36→20:11)
[2022-04-28] MEDS: Lactobacillus Rhamnosus GG (Probiotic) Cap PO SCH (08:36)
[2022-04-28] MEDS: DULoxetine 60 MG Cap PO SCH ×2 (08:36→20:12)
[2022-04-28] MEDS: Cholecalciferol (Vitamin D3) 25 MCG Tab PO SCH (08:36)
[2022-04-28] MEDS: Calcium Carbonate/Vitamin D3 1250 MG-5 MCG Tab PO SCH ×2 (08:36→20:13)
[2022-04-28] MEDS: Psyllium Husk Powder Sugar Free 5.85 GM Packet PO SCH (08:37)
[2022-04-28] MEDS: D MANNOSE PO SCH ×2 (08:38→20:15)
[2022-04-28] MEDS: Nicotine 7 MG/24 Hr Patch TRDERM SCH (08:42)
[2022-04-28] MEDS: Amoxicillin/Clavulanate K 875-125 MG Tab PO SCH ×2 (09:09→20:13)
[2022-04-28] MEDS: traZODone 50 MG Tab PO SCH (20:14)
[2022-04-28] MEDS: Zolpidem 5 MG Tab PO SCH (20:14)
[2022-04-28] MEDS: SYSTANE EYE SCH (20:16)
[2022-04-29] MEDS: Pantoprazole 40 MG Tab.CR PO SCH (06:00)
[2022-04-29] MEDS ORDERED: Nicotine 7 MG/24 Hr Patch TRDERM PRN (08:17)
[2022-04-29] MEDS: Cholecalciferol (Vitamin D3) 25 MCG Tab PO SCH (08:22)
[2022-04-29] MEDS: DULoxetine 60 MG Cap PO SCH ×2 (08:22→20:13)
[2022-04-29] MEDS: Folic Acid 0.4 MG Tab PO SCH (08:22)
[2022-04-29] MEDS: Calcium Carbonate/Vitamin D3 1250 MG-5 MCG Tab PO SCH ×2 (08:22→20:13)
[2022-04-29] MEDS: Amoxicillin/Clavulanate K 875-125 MG Tab PO SCH ×2 (08:22→20:13)
[2022-04-29] MEDS: Lactobacillus Rhamnosus GG (Probiotic) Cap PO SCH (08:22)
[2022-04-29] MEDS: traMADol 50 MG Tab PO SCH ×2 (08:23→20:14)
[2022-04-29] MEDS: Pregabalin 50 MG Cap PO SCH ×3 (08:24→20:16)
[2022-04-29] MEDS: D MANNOSE PO SCH ×2 (08:25→20:16)
[2022-04-29] MEDS: Psyllium Husk Powder Sugar Free 5.85 GM Packet PO SCH (08:25)
[2022-04-29] MEDS: traZODone 50 MG Tab PO SCH (20:14)
[2022-04-29] MEDS: Zolpidem 5 MG Tab PO SCH (20:14)
[2022-04-29] MEDS: SYSTANE EYE SCH (20:16)
[2022-04-30] MEDS: Pantoprazole 40 MG Tab.CR PO SCH (06:09)
[2022-04-30] MEDS: Calcium Carbonate/Vitamin D3 1250 MG-5 MCG Tab PO SCH ×2 (08:05→20:09)
[2022-04-30] MEDS: Pregabalin 50 MG Cap PO SCH ×3 (08:05→20:08)
[2022-04-30] MEDS: Cholecalciferol (Vitamin D3) 25 MCG Tab PO SCH (08:06)
[2022-04-30] MEDS: traMADol 50 MG Tab PO SCH ×2 (08:06→20:09)
[2022-04-30] MEDS: Amoxicillin/Clavulanate K 875-125 MG Tab PO SCH ×2 (08:06→20:09)
[2022-04-30] MEDS: Lactobacillus Rhamnosus GG (Probiotic) Cap PO SCH (08:06)
[2022-04-30] MEDS: Folic Acid 0.4 MG Tab PO SCH (08:06)
[2022-04-30] MEDS: Psyllium Husk Powder Sugar Free 5.85 GM Packet PO SCH (08:07)
[2022-04-30] MEDS: D MANNOSE PO SCH ×2 (08:07→20:09)
[2022-04-30] MEDS: DULoxetine 60 MG Cap PO SCH ×2 (08:07→20:09)
[2022-04-30] MEDS: Ondansetron 4 MG Tab.DIS PO PRN (11:12)
[2022-04-30] MEDS: traZODone 50 MG Tab PO SCH (20:09)
[2022-04-30] MEDS: SYSTANE EYE SCH (20:10)
[2022-04-30] MEDS: Zolpidem 5 MG Tab PO SCH (20:10)
[2022-05-01] MEDS: Pregabalin 50 MG Cap PO PRN (02:31)
[2022-05-01] MEDS: Pantoprazole 40 MG Tab.CR PO SCH (06:08)
[2022-05-01] MEDS: DULoxetine 60 MG Cap PO SCH ×2 (08:04→20:06)
[2022-05-01] MEDS: Calcium Carbonate/Vitamin D3 1250 MG-5 MCG Tab PO SCH ×2 (08:04→20:08)
[2022-05-01] MEDS: Amoxicillin/Clavulanate K 875-125 MG Tab PO SCH ×2 (08:04→20:11)
[2022-05-01] MEDS: traMADol 50 MG Tab PO SCH ×2 (08:04→20:07)
[2022-05-01] MEDS: Folic Acid 0.4 MG Tab PO SCH (08:04)
[2022-05-01] MEDS: Lactobacillus Rhamnosus GG (Probiotic) Cap PO SCH (08:04)
[2022-05-01] MEDS: Pregabalin 50 MG Cap PO SCH ×3 (08:05→20:08)
[2022-05-01] MEDS: Cholecalciferol (Vitamin D3) 25 MCG Tab PO SCH (08:05)
[2022-05-01] MEDS: D MANNOSE PO SCH ×2 (08:05→20:10)
[2022-05-01] MEDS: Psyllium Husk Powder Sugar Free 5.85 GM Packet PO SCH (08:05)
[2022-05-01] MEDS: Ondansetron 4 MG Tab.DIS PO PRN (19:45)
[2022-05-01] MEDS: traZODone 50 MG Tab PO SCH (20:06)
[2022-05-01] MEDS: Zolpidem 5 MG Tab PO SCH (20:08)
[2022-05-01] MEDS: SYSTANE EYE SCH (20:10)
[2022-05-02] MEDS: Ondansetron 4 MG Tab.DIS PO PRN ×3 (00:17→17:29)
[2022-05-02] MEDS: Pantoprazole 40 MG Tab.CR PO SCH (06:06)
[2022-05-02 06:57] LABS: ANION GAP 10.9 mmol/L (5-15)
[2022-05-02] MEDS: DULoxetine 60 MG Cap PO SCH ×2 (08:06→21:13)
[2022-05-02] MEDS: Calcium Carbonate/Vitamin D3 1250 MG-5 MCG Tab PO SCH ×2 (08:06→21:14)
[2022-05-02] MEDS: Cholecalciferol (Vitamin D3) 25 MCG Tab PO SCH (08:06)
[2022-05-02] MEDS: Amoxicillin/Clavulanate K 875-125 MG Tab PO SCH (08:06)
[2022-05-02] MEDS: Folic Acid 0.4 MG Tab PO SCH (08:06)
[2022-05-02] MEDS: Lactobacillus Rhamnosus GG (Probiotic) Cap PO SCH (08:06)
[2022-05-02] MEDS: traMADol 50 MG Tab PO SCH ×2 (08:06→21:15)
[2022-05-02] MEDS: Pregabalin 50 MG Cap PO SCH ×3 (08:07→21:12)
[2022-05-02] MEDS: Psyllium Husk Powder Sugar Free 5.85 GM Packet PO SCH (08:08)
[2022-05-02] MEDS: D MANNOSE PO SCH ×2 (08:08→20:11)
[2022-05-02] MEDS: Promethazine 25 MG Tab PO PRN ×2 (11:47→20:09)
[2022-05-02] MEDS: SYSTANE EYE SCH (20:10)
[2022-05-02] MEDS: traZODone 50 MG Tab PO SCH (21:13)
[2022-05-02] MEDS: Zolpidem 5 MG Tab PO SCH (21:14)
[2022-05-02] MEDS: Albuterol HFA 18 Gm Inhaler INH PRN (23:40)
[2022-05-03] MEDS: Ondansetron 4 MG Tab.DIS PO PRN ×3 (00:55→13:27)
[2022-05-03] MEDS: Pantoprazole 40 MG Tab.CR PO SCH (06:15)
[2022-05-03] MEDS: DULoxetine 60 MG Cap PO SCH ×2 (09:29→21:05)
[2022-05-03] MEDS: traMADol 50 MG Tab PO SCH ×2 (09:29→21:05)
[2022-05-03] MEDS: Lactobacillus Rhamnosus GG (Probiotic) Cap PO SCH (09:29)
[2022-05-03] MEDS: Pregabalin 50 MG Cap PO SCH ×3 (09:30→21:05)
[2022-05-03] MEDS: SYSTANE EYE EYEBOTH PRN (09:31)
[2022-05-03 10:09] LABS: ANION GAP 13.7 mmol/L (5-15)
[2022-05-03] MEDS: Folic Acid 0.4 MG Tab PO SCH (12:53)
[2022-05-03] MEDS: Psyllium Husk Powder Sugar Free 5.85 GM Packet PO SCH (12:55)
[2022-05-03] MEDS: D MANNOSE PO SCH ×2 (12:55→21:07)
[2022-05-03] MEDS: Doxycycline Monohydrate 100 MG Cap PO SCH (21:05)
[2022-05-03] MEDS: traZODone 50 MG Tab PO SCH (21:05)
[2022-05-03] MEDS: Zolpidem 5 MG Tab PO SCH (21:07)
[2022-05-03] MEDS: SYSTANE EYE SCH (21:07)
[2022-05-04] MEDS: Pantoprazole 40 MG Tab.CR PO SCH (06:15)
[2022-05-04] MEDS: Folic Acid 0.4 MG Tab PO SCH (08:17)
[2022-05-04] MEDS: Lactobacillus Rhamnosus GG (Probiotic) Cap PO SCH (08:17)
[2022-05-04] MEDS: Psyllium Husk Powder Sugar Free 5.85 GM Packet PO SCH (08:17)
[2022-05-04] MEDS: Doxycycline Monohydrate 100 MG Cap PO SCH ×2 (08:17→20:00)
[2022-05-04] MEDS: Pregabalin 50 MG Cap PO SCH ×3 (08:18→20:00)
[2022-05-04] MEDS: DULoxetine 60 MG Cap PO SCH ×2 (08:18→20:00)
[2022-05-04] MEDS: traMADol 50 MG Tab PO SCH ×2 (08:18→20:01)
[2022-05-04] MEDS: SYSTANE EYE EYEBOTH PRN (08:19)
[2022-05-04] MEDS: D MANNOSE PO SCH ×2 (08:21→20:02)
[2022-05-04] MEDS: SYSTANE EYE SCH (20:00)
[2022-05-04] MEDS: traZODone 50 MG Tab PO SCH (20:01)
[2022-05-04] MEDS: Zolpidem 5 MG Tab PO SCH (20:01)
[2022-05-05] MEDS: Pantoprazole 40 MG Tab.CR PO SCH (06:18)
[2022-05-05] MEDS: Lactobacillus Rhamnosus GG (Probiotic) Cap PO SCH (08:09)
[2022-05-05] MEDS: DULoxetine 60 MG Cap PO SCH ×2 (08:09→20:07)
[2022-05-05] MEDS: traMADol 50 MG Tab PO SCH ×2 (08:09→20:07)
[2022-05-05] MEDS: Folic Acid 0.4 MG Tab PO SCH (08:09)
[2022-05-05] MEDS: Doxycycline Monohydrate 100 MG Cap PO SCH ×2 (08:10→20:06)
[2022-05-05] MEDS: Pregabalin 50 MG Cap PO SCH ×3 (08:10→20:06)
[2022-05-05] MEDS: D MANNOSE PO SCH ×2 (08:10→20:06)
[2022-05-05] MEDS: Psyllium Husk Powder Sugar Free 5.85 GM Packet PO SCH (08:11)
[2022-05-05] MEDS ORDERED: Bisacodyl 10 MG Supp RECTAL ONE (14:45)
[2022-05-05] MEDS: Polyethylene Glycol 3350 Powder 17 GM Packet PO SCH (16:19)
[2022-05-05] MEDS: SYSTANE EYE SCH (20:06)
[2022-05-05] MEDS: traZODone 50 MG Tab PO SCH (20:07)
[2022-05-05] MEDS: Zolpidem 5 MG Tab PO SCH (20:08)
[2022-05-06] MEDS: Pantoprazole 40 MG Tab.CR PO SCH (05:59)
[2022-05-06 07:05] LABS: ANION GAP 10.7 mmol/L (5-15)
[2022-05-06] MEDS: Pregabalin 50 MG Cap PO SCH ×3 (08:27→20:42)
[2022-05-06] MEDS: Polyethylene Glycol 3350 Powder 17 GM Packet PO SCH (08:27)
[2022-05-06] MEDS: traMADol 50 MG Tab PO SCH ×2 (08:27→20:41)
[2022-05-06] MEDS: Psyllium Husk Powder Sugar Free 5.85 GM Packet PO SCH (08:27)
[2022-05-06] MEDS: Lactobacillus Rhamnosus GG (Probiotic) Cap PO SCH (08:29)
[2022-05-06] MEDS: DULoxetine 60 MG Cap PO SCH ×2 (08:30→20:43)
[2022-05-06] MEDS: Folic Acid 0.4 MG Tab PO SCH (08:30)
[2022-05-06] MEDS: Doxycycline Monohydrate 100 MG Cap PO SCH ×2 (08:30→20:42)
[2022-05-06] MEDS: Albuterol HFA 18 Gm Inhaler INH PRN (08:31)
[2022-05-06] MEDS: D MANNOSE PO SCH ×2 (08:32→20:44)
[2022-05-06] MEDS: traZODone 50 MG Tab PO SCH (20:43)
[2022-05-06] MEDS: SYSTANE EYE SCH (20:43)
[2022-05-06] MEDS: Zolpidem 5 MG Tab PO SCH (20:46)
[2022-05-07] MEDS: Pantoprazole 40 MG Tab.CR PO SCH (06:27)
[2022-05-07] MEDS: traMADol 50 MG Tab PO SCH ×2 (09:02→20:00)
[2022-05-07] MEDS: Folic Acid 0.4 MG Tab PO SCH (09:02)
[2022-05-07] MEDS: Lactobacillus Rhamnosus GG (Probiotic) Cap PO SCH (09:02)
[2022-05-07] MEDS: DULoxetine 60 MG Cap PO SCH ×2 (09:02→20:01)
[2022-05-07] MEDS: Pregabalin 50 MG Cap PO SCH ×3 (09:03→20:01)
[2022-05-07] MEDS: Doxycycline Monohydrate 100 MG Cap PO SCH ×2 (09:03→20:00)
[2022-05-07] MEDS: Psyllium Husk Powder Sugar Free 5.85 GM Packet PO SCH (09:03)
[2022-05-07] MEDS: Polyethylene Glycol 3350 Powder 17 GM Packet PO SCH (09:03)
[2022-05-07] MEDS: D MANNOSE PO SCH ×2 (09:04→20:02)
[2022-05-07] MEDS: traZODone 50 MG Tab PO SCH (20:01)
[2022-05-07] MEDS: Zolpidem 5 MG Tab PO SCH (20:01)
[2022-05-07] MEDS: SYSTANE EYE SCH (20:02)
[2022-05-08] MEDS: Pantoprazole 40 MG Tab.CR PO SCH (06:20)
[2022-05-08 06:25] VITALS: PULSE 58
[2022-05-08] MEDS: Polyethylene Glycol 3350 Powder 17 GM Packet PO SCH (08:39)
[2022-05-08] MEDS: traMADol 50 MG Tab PO SCH ×2 (08:39→20:05)
[2022-05-08] MEDS: Doxycycline Monohydrate 100 MG Cap PO SCH ×2 (08:39→20:06)
[2022-05-08] MEDS: Pregabalin 50 MG Cap PO SCH ×3 (08:39→20:06)
[2022-05-08] MEDS: DULoxetine 60 MG Cap PO SCH ×2 (08:40→20:05)
[2022-05-08] MEDS: Lactobacillus Rhamnosus GG (Probiotic) Cap PO SCH (08:40)
[2022-05-08] MEDS: Psyllium Husk Powder Sugar Free 5.85 GM Packet PO SCH (08:40)
[2022-05-08] MEDS: Folic Acid 0.4 MG Tab PO SCH (08:40)
[2022-05-08] MEDS: D MANNOSE PO SCH ×2 (08:41→20:06)
[2022-05-08] MEDS: traZODone 50 MG Tab PO SCH (20:05)
[2022-05-08] MEDS: Zolpidem 5 MG Tab PO SCH (20:06)
[2022-05-08] MEDS: SYSTANE EYE SCH (20:06)
[2022-05-09 05:20] VITALS: BP 133/65
[2022-05-09] MEDS: Pantoprazole 40 MG Tab.CR PO SCH (05:59)
[2022-05-09] MEDS: Pregabalin 50 MG Cap PO SCH (08:03)
[2022-05-09] MEDS: traMADol 50 MG Tab PO SCH (08:04)
[2022-05-09] MEDS: Lactobacillus Rhamnosus GG (Probiotic) Cap PO SCH (08:04)
[2022-05-09] MEDS: Folic Acid 0.4 MG Tab PO SCH (08:05)
[2022-05-09] MEDS: DULoxetine 60 MG Cap PO SCH (08:05)
[2022-05-09] MEDS: Doxycycline Monohydrate 100 MG Cap PO SCH (08:05)
[2022-05-09] MEDS: Psyllium Husk Powder Sugar Free 5.85 GM Packet PO SCH (08:05)
[2022-05-09] MEDS: D MANNOSE PO SCH (08:06)
[2022-05-09] MEDS: Polyethylene Glycol 3350 Powder 17 GM Packet PO SCH (08:19)
== END 2022-05-09 10:10 | DRG 948 ==
LOC: VM.MS 14:22
PROVIDERS: ADMIT Internal Medicine; ATTEND Internal Medicine
DX: R53.81 Other malaise (principal); N39.0 Urinary tract infection, site not specified; J44.1 Chronic obstructive pulmonary disease with (acute) exacerbation; N17.9 Acute kidney failure, unspecified; E46 Unspecified protein-calorie malnutrition; R33.8 Other retention of urine; N31.9 Neuromuscular dysfunction of bladder, unspecified; Z20.822 Contact with and (suspected) exposure to COVID-19; G35 Multiple sclerosis; B96.20 Unspecified Escherichia coli [E. coli] as the cause of diseases classified elsewhere; F17.200 Nicotine dependence, unspecified, uncomplicated; K59.00 Constipation, unspecified; G89.29 Other chronic pain; G62.9 Polyneuropathy, unspecified; G47.33 Obstructive sleep apnea (adult) (pediatric); G47.00 Insomnia, unspecified; M81.0 Age-related osteoporosis without current pathological fracture; M25.531 Pain in right wrist; G31.84 Mild cognitive impairment of uncertain or unknown etiology; Z68.27 Body mass index [BMI] 27.0-27.9, adult
CPT/HCPCS: 36415; 71045; 73100-RT; 74018; 80048; 80053; 81001; 82570; 83690; 84300; 85025; 87086; 94640; 94660; 94667; 94668; 94760; 97110-GP; 97165-GO; 97530-GP; 97535-GO; A9270-GY; J7620-GY; U0002

== ENCOUNTER 2022-07-23 10:36 | Emergency (ER) | payer MEDICARE, MEDICAID ==
[2022-07-23 12:30] VITALS: BP 128/70; PULSE 74
== END 2022-07-23 12:25 | disposition home or self-care (01) ==
LOC: VM.ED 10:36
DX: T83.098A Other mechanical complication of other urinary catheter, initial encounter (principal); Z88.8 Allergy status to other drugs, medicaments and biological substances; Z88.2 Allergy status to sulfonamides; Z79.899 Other long term (current) drug therapy
CPT/HCPCS: 51702; 99283

== ENCOUNTER 2022-08-01 16:15 | Inpatient (IN) | payer MEDICARE, MEDICAID ==
[2022-08-01] MEDS ORDERED: Acetaminophen 325 MG Tab PO PRN (16:23)
[2022-08-01] MEDS ORDERED: Ondansetron 4 MG/2 ML SDV IV PRN (16:23)
[2022-08-01] MEDS: cefTRIAXone 1 GM Vial IVPUSH SCH (18:42)
[2022-08-01] MEDS: Sodium Chloride 0.9% 10 ML Syringe FLUSH PRN (19:55)
[2022-08-01] MEDS: Sodium Chloride 0.9% 1,000 ML IV SCH (19:58)
[2022-08-01] MEDS ORDERED: traZODone 50 MG Tab PO PRN (19:59)
[2022-08-01] MEDS ORDERED: Pregabalin 50 MG Cap PO PRN (19:59)
[2022-08-01] MEDS ORDERED: Non-Formulary Medication 1 Each EYEBOTH PRN (19:59)
[2022-08-01] MEDS ORDERED: Ondansetron 4 MG Tab.DIS PO PRN (20:03)
[2022-08-01] MEDS ORDERED: Dicyclomine 10 MG Cap PO PRN (20:04)
[2022-08-01] MEDS ORDERED: ALPHA D GALACTOSIDASE 400 UNIT PO SCH (21:00)
[2022-08-01] MEDS: Calcium Carbonate/Vitamin D3 1250 MG-5 MCG Tab PO SCH (21:15)
[2022-08-01] MEDS: Pregabalin 50 MG Cap PO SCH (21:15)
[2022-08-01] MEDS: Azithromycin 250 MG Tab PO SCH (21:15)
[2022-08-01] MEDS: traZODone 50 MG Tab PO SCH (21:15)
[2022-08-01] MEDS: Zolpidem 5 MG Tab PO SCH (21:16)
[2022-08-01] MEDS: traMADol 50 MG Tab PO SCH (21:17)
[2022-08-01] MEDS: DULoxetine 60 MG Cap PO SCH (21:29)
[2022-08-02] MEDS: Sodium Chloride 0.9% 1,000 ML IV SCH (03:43)
[2022-08-02] MEDS: Pantoprazole 40 MG Tab.CR PO SCH (06:49)
[2022-08-02 07:07] LABS: ANION GAP 9.8 mmol/L (5-15)
[2022-08-02] MEDS ORDERED: Albuterol/Ipratropium 3.0-0.5 MG/3 ML Neb Soln NEB PRN (08:28)
[2022-08-02] MEDS: Psyllium Husk Powder Sugar Free 5.85 GM Packet PO SCH (08:39)
[2022-08-02] MEDS: Pregabalin 50 MG Cap PO SCH ×3 (08:39→20:09)
[2022-08-02] MEDS: Folic Acid 0.4 MG Tab PO SCH (08:39)
[2022-08-02] MEDS: cefTRIAXone 1 GM Vial IVPUSH SCH (08:39)
[2022-08-02] MEDS: Enoxaparin 40 MG/0.4 ML Syringe SUBCUT SCH (08:39)
[2022-08-02] MEDS: DULoxetine 60 MG Cap PO SCH ×2 (08:40→20:09)
[2022-08-02] MEDS: Calcium Carbonate/Vitamin D3 1250 MG-5 MCG Tab PO SCH ×2 (08:40→20:09)
[2022-08-02] MEDS: Cholecalciferol (Vitamin D3) 25 MCG Tab PO SCH (08:40)
[2022-08-02] MEDS: Lactobacillus Rhamnosus GG (Probiotic) Cap PO SCH (08:40)
[2022-08-02] MEDS: Aspirin 81 MG Tab.EC PO SCH (08:40)
[2022-08-02] MEDS: traMADol 50 MG Tab PO SCH ×2 (08:40→20:09)
[2022-08-02] MEDS: Albuterol/Ipratropium 3.0-0.5 MG/3 ML Neb Soln NEB SCH ×2 (14:47→22:05)
[2022-08-02] MEDS: Azithromycin 250 MG Tab PO SCH (20:08)
[2022-08-02] MEDS: traZODone 50 MG Tab PO SCH (20:09)
[2022-08-02] MEDS: Zolpidem 5 MG Tab PO SCH (20:10)
[2022-08-02] MEDS: Sodium Chloride 0.9% 10 ML Syringe FLUSH PRN (20:14)
[2022-08-03] MEDS: Pantoprazole 40 MG Tab.CR PO SCH (06:08)
[2022-08-03] MEDS: Albuterol/Ipratropium 3.0-0.5 MG/3 ML Neb Soln NEB SCH ×2 (07:16→15:00)
[2022-08-03 07:23] LABS: ANION GAP 9.6 mmol/L (5-15)
[2022-08-03] MEDS: Pregabalin 50 MG Cap PO SCH ×2 (08:22→13:29)
[2022-08-03] MEDS: Calcium Carbonate/Vitamin D3 1250 MG-5 MCG Tab PO SCH (08:23)
[2022-08-03] MEDS: Cholecalciferol (Vitamin D3) 25 MCG Tab PO SCH (08:23)
[2022-08-03] MEDS: Lactobacillus Rhamnosus GG (Probiotic) Cap PO SCH (08:23)
[2022-08-03] MEDS: Aspirin 81 MG Tab.EC PO SCH (08:23)
[2022-08-03] MEDS: traMADol 50 MG Tab PO SCH (08:23)
[2022-08-03] MEDS: DULoxetine 60 MG Cap PO SCH (08:23)
[2022-08-03] MEDS: Folic Acid 0.4 MG Tab PO SCH (08:23)
[2022-08-03] MEDS: Enoxaparin 40 MG/0.4 ML Syringe SUBCUT SCH (08:24)
[2022-08-03] MEDS: cefTRIAXone 1 GM Vial IVPUSH SCH (08:24)
[2022-08-03] MEDS: Psyllium Husk Powder Sugar Free 5.85 GM Packet PO SCH (08:25)
[2022-08-03] MEDS ORDERED: Furosemide 20 MG/2 ML VIAL IV ONE (09:15)
[2022-08-03] MEDS ORDERED: Furosemide 20 MG Tab PO ONE (10:00)
[2022-08-03 14:04] VITALS: BP 130/74; PULSE 73
== END 2022-08-03 16:00 | disposition home health service (06) | DRG 871 ==
LOC: VM.MS 16:25
PROVIDERS: ADMIT Internal Medicine; ATTEND Internal Medicine
DX: A41.9 Sepsis, unspecified organism (principal); J18.9 Pneumonia, unspecified organism; J44.0 Chronic obstructive pulmonary disease with (acute) lower respiratory infection; R33.9 Retention of urine, unspecified; G47.01 Insomnia due to medical condition; F17.200 Nicotine dependence, unspecified, uncomplicated; M81.0 Age-related osteoporosis without current pathological fracture; G35 Multiple sclerosis; Z20.822 Contact with and (suspected) exposure to COVID-19; K59.09 Other constipation; M54.9 Dorsalgia, unspecified; G89.29 Other chronic pain; F41.9 Anxiety disorder, unspecified; F32.A Depression, unspecified; E04.1 Nontoxic single thyroid nodule; Z88.2 Allergy status to sulfonamides; Z79.82 Long term (current) use of aspirin; Z79.899 Other long term (current) drug therapy; Z90.49 Acquired absence of other specified parts of digestive tract; Z98.84 Bariatric surgery status
CPT/HCPCS: 36415; 71045; 80048; 80053; 83605; 83735; 83880; 85025; 87040; 94640; 94760; 97161-GP; 97165-GO; 97535-GO; A9270-GY; J0696; J1650; J3490; J7030; J7620-GY; U0002

== ENCOUNTER 2023-04-28 12:19 | Inpatient (IN) | payer MEDICARE, MEDICAID ==
[2023-04-28] MEDS ORDERED: Sodium Chloride 0.9% 10 ML Syringe FLUSH PRN (13:09)
[2023-04-28] MEDS ORDERED: Ondansetron 4 MG/2 ML SDV IVPUSH PRN (13:10)
[2023-04-28 13:37] LABS: BASOPHILS ABSOLUTE AUTO 0.1 x10^3/uL (0.0-0.2); BASOPHILS PERCENT AUTO 0.8 % (0.2-1.2); EOSINOPHILS ABSOLUTE AUTO 0.1 x10^3/uL (0.0-0.5); EOSINOPHILS PERCENT AUTO 0.8 % (0.0-4.0); HEMATOCRIT 39.8 % (33.0-47.0); HEMOGLOBIN 13.8 g/dL (12.0-16.0); IMMATURE GRAN ABSOLUTE AUTO 0.02 x10^3/uL (0.00-0.07); LYMPHOCYTES ABSOLUTE AUTO 1.5 x10^3/uL (1.0-4.8); LYMPHOCYTES PERCENT AUTO 12.3 % (25.0-50.0); MEAN CORPUSCULAR HEMOGLOBIN 29.1 pg (26.0-32.0); MEAN CORPUSCULAR HGB CONC 34.7 g/dL (32.0-36.0); MONOCYTES ABSOLUTE AUTO 1.3 x10^3/uL (0.0-0.8); MONOCYTES PERCENT AUTO 10.2 % (2.0-11.0); NEUTROPHILS ABSOLUTE AUTO 9.3 x10^3/uL (1.8-7.7); NEUTROPHILS PERCENT AUTO 75.7 % (50.0-80.0); PLATELET COUNT,PLT 269 x10^3/uL (130-400); RED BLOOD CELL COUNT 4.74 x10^6/uL (4.00-5.50); WHITE BLOOD CELL COUNT,WBC 12.3 x10^3/uL (4.0-10.0)
[2023-04-28] MEDS: Dextrose 5%-Lactated Ringers 1,000 ML IV SCH ×2 (13:37→21:29)
[2023-04-28 13:54] LABS: A/G RATIO 0.82; ALANINE AMINOTRANSFERASE,ALT 22 U/L (14-59); ALBUMIN 2.8 g/dL (3.4-5.0); ALKALINE PHOSPHATASE 135 U/L (46-116); ASPARTATE AMNIOTRANSFERASE,AST 31 U/L (15-37); BILIRUBIN TOTAL 0.4 mg/dL (0.2-1.0); BLOOD UREA NITROGEN,BUN 9 mg/dL (7-18); CARBON DIOXIDE,CO2 30 mmol/L (21-32); CHLORIDE,CL 102 mmol/L (98-107); CREATININE 1.1 mg/dL (0.55-1.02); GLUCOSE RANDOM 110 mg/dL (70-99); POTASSIUM,K 3.9 mmol/L (3.5-5.1); PROTEIN TOTAL,TP 6.2 g/dL (6.4-8.2); SODIUM,NA 140 mmol/L (136-145)
[2023-04-28 13:56] LABS: ANION GAP 11.9 mmol/L (5-15); ESTIMATED GFR 51 mL/min (>=60)
[2023-04-28] MEDS: cefTRIAXone 2 GM Vial IVPUSH SCH (14:07)
[2023-04-28 14:15] LABS: CORONAVIRUS COVID-19 NAA NEGATIVE (NEGATIVE); INFLUENZA A NAA NEGATIVE (NEGATIVE); INFLUENZA B NAA NEGATIVE (NEGATIVE)
[2023-04-28] MEDS: Azithromycin 500 MG in Sodium Chloride 0.9% 250 ML IV SCH (14:15)
[2023-04-28 14:16] LABS: RESPIRATORY SYNCYTIAL VIR NAA NEGATIVE (NEGATIVE)
[2023-04-28] MEDS ORDERED: Albuterol HFA 18 Gm Inhaler INH PRN (15:00)
[2023-04-28] MEDS ORDERED: Nystatin Crm 30 GM Tube TOP PRN (15:00)
[2023-04-28] MEDS ORDERED: Pregabalin 50 MG Cap PO PRN (15:00)
[2023-04-28] MEDS ORDERED: traZODone 50 MG Tab PO PRN (15:00)
[2023-04-28] MEDS ORDERED: Ondansetron 4 MG Tab.DIS PO PRN (15:19)
[2023-04-28] MEDS: Enoxaparin 40 MG/0.4 ML Syringe SUBCUT SCH (15:26)
[2023-04-28] MEDS: Albuterol 0.083% 2.5 MG/3 ML Neb Soln NEB PRN ×2 (15:26→20:52)
[2023-04-28] MEDS: Pregabalin 50 MG Cap PO SCH ×2 (16:35→20:39)
[2023-04-28] MEDS: Hypromellose 0.3% Ophth Soln 15 ML Bottle EYEBOTH SCH ×2 (16:36→20:40)
[2023-04-28 17:53] LABS: BILIRUBIN,URINE NEGATIVE (NEGATIVE); COLOR,URINE YELLOW (YELLOW); GLUCOSE,URINE NEGATIVE (NEGATIVE); KETONES,URINE NEGATIVE (NEGATIVE); LEUKOCYTE ESTERASE,URINE SMALL (NEGATIVE); NITRITE,URINE NEGATIVE (NEGATIVE); OCCULT BLOOD,URINE MODERATE (NEGATIVE); PROTEIN,URINE NEGATIVE (NEGATIVE); UROBILINOGEN,URINE 0.2 EU/dL (0.2)
[2023-04-28 17:55] LABS: APPEARANCE,URINE SLIGHTLY CLOUDY (CLEAR)
[2023-04-28 18:01] LABS: BACTERIA,URINE OCCASIONAL /HPF (NOT SEEN); MUCUS,URINE RARE /LPF (NOT SEEN); RBC,URINE 20-30 /HPF (NOT SEEN); SQUAMOUS EPITHELIAL CELLS,UR FEW /HPF (NOT SEEN)
[2023-04-28] MEDS: Donepezil 10 MG Tab PO SCH (20:34)
[2023-04-28] MEDS: Zolpidem 5 MG Tab PO SCH (20:35)
[2023-04-28] MEDS: traMADol 50 MG Tab PO SCH (20:36)
[2023-04-28] MEDS: DULoxetine 60 MG Cap PO SCH (20:39)
[2023-04-28] MEDS: traZODone 50 MG Tab PO SCH (20:42)
[2023-04-28] MEDS ORDERED: Hypromellose 0.3% Ophth Soln 15 ML Bottle EYEBOTH SCH (21:00)
[2023-04-29] MEDS: Acetaminophen 325 MG Tab PO PRN ×2 (06:57→18:29)
[2023-04-29] MEDS: Albuterol 0.083% 2.5 MG/3 ML Neb Soln NEB PRN (06:57)
[2023-04-29] MEDS: Pantoprazole 40 MG Tab.CR PO SCH (06:58)
[2023-04-29 08:02] LABS: BASOPHILS ABSOLUTE AUTO 0.1 x10^3/uL (0.0-0.2); BASOPHILS PERCENT AUTO 0.5 % (0.2-1.2); EOSINOPHILS ABSOLUTE AUTO 0.1 x10^3/uL (0.0-0.5); EOSINOPHILS PERCENT AUTO 1.1 % (0.0-4.0); HEMATOCRIT 40.3 % (33.0-47.0); HEMOGLOBIN 13.5 g/dL (12.0-16.0); IMMATURE GRAN ABSOLUTE AUTO 0.02 x10^3/uL (0.00-0.07); LYMPHOCYTES ABSOLUTE AUTO 1.5 x10^3/uL (1.0-4.8); LYMPHOCYTES PERCENT AUTO 11.7 % (25.0-50.0); MEAN CORPUSCULAR HEMOGLOBIN 28.8 pg (26.0-32.0); MEAN CORPUSCULAR HGB CONC 33.5 g/dL (32.0-36.0); MEAN CORPUSCULAR VOLUME 86.1 fL (78.0-93.0); MONOCYTES ABSOLUTE AUTO 1.2 x10^3/uL (0.0-0.8); MONOCYTES PERCENT AUTO 8.9 % (2.0-11.0); NEUTROPHILS ABSOLUTE AUTO 10.3 x10^3/uL (1.8-7.7); NEUTROPHILS PERCENT AUTO 77.6 % (50.0-80.0); PLATELET COUNT,PLT 210 x10^3/uL (130-400); RED BLOOD CELL COUNT 4.68 x10^6/uL (4.00-5.50); WHITE BLOOD CELL COUNT,WBC 13.2 x10^3/uL (4.0-10.0)
[2023-04-29 08:17] LABS: A/G RATIO 0.73; ALBUMIN 2.4 g/dL (3.4-5.0); BILIRUBIN TOTAL 0.3 mg/dL (0.2-1.0); CALCIUM 9.3 mg/dL (8.5-10.1); CREATININE 1.1 mg/dL (0.55-1.02); EST CRCL DRUG DOSING (CG) 34.3 mL/min; POTASSIUM,K 3.6 mmol/L (3.5-5.1); PROTEIN TOTAL,TP 5.7 g/dL (6.4-8.2)
[2023-04-29 08:18] LABS: ANION GAP 9.6 mmol/L (5-15)
[2023-04-29] MEDS ORDERED: [UNRECOGNIZED DRUG - OTHER] PO SCH (09:00)
[2023-04-29] MEDS ORDERED: LANSOPRAZOLE 30 MG PO SCH (09:00)
[2023-04-29] MEDS: Hypromellose 0.3% Ophth Soln 15 ML Bottle EYEBOTH SCH ×4 (09:45→20:22)
[2023-04-29] MEDS: cefTRIAXone 2 GM Vial IVPUSH SCH (09:47)
[2023-04-29] MEDS: GLATIRAMER 20 MG/ML SUBCUT SCH (09:50)
[2023-04-29] MEDS: Spironolactone 25 MG Tab PO SCH (09:51)
[2023-04-29] MEDS: Pregabalin 50 MG Cap PO SCH ×3 (09:51→20:19)
[2023-04-29] MEDS: Hydrochlorothiazide 12.5 MG Cap PO SCH (09:51)
[2023-04-29] MEDS: Lactobacillus Rhamnosus GG (Probiotic) Cap PO SCH (09:51)
[2023-04-29] MEDS: Aspirin 81 MG Tab.EC PO SCH (09:51)
[2023-04-29] MEDS: Enoxaparin 40 MG/0.4 ML Syringe SUBCUT SCH (09:52)
[2023-04-29] MEDS: traMADol 50 MG Tab PO SCH ×2 (09:52→20:18)
[2023-04-29] MEDS: Azithromycin 500 MG in Sodium Chloride 0.9% 250 ML IV SCH (09:52)
[2023-04-29] MEDS: DULoxetine 60 MG Cap PO SCH ×2 (09:52→20:21)
[2023-04-29] MEDS: Albuterol/Ipratropium 3.0-0.5 MG/3 ML Neb Soln NEB SCH ×4 (11:14→22:32)
[2023-04-29] MEDS ORDERED: Piperacillin/Tazobactam 4.5 GM in Sodium Chloride 0.9% 100 ML IV ONE (11:45)
[2023-04-29 14:33] LABS: BASOPHILS ABSOLUTE AUTO 0.1 x10^3/uL (0.0-0.2); BASOPHILS PERCENT AUTO 0.6 % (0.2-1.2); EOSINOPHILS ABSOLUTE AUTO 0.1 x10^3/uL (0.0-0.5); EOSINOPHILS PERCENT AUTO 0.9 % (0.0-4.0); HEMATOCRIT 33.9 % (33.0-47.0); HEMOGLOBIN 11.8 g/dL (12.0-16.0); IMMATURE GRAN ABSOLUTE AUTO 0.01 x10^3/uL (0.00-0.07); LYMPHOCYTES ABSOLUTE AUTO 1.4 x10^3/uL (1.0-4.8); MEAN CORPUSCULAR HEMOGLOBIN 29.1 pg (26.0-32.0); MEAN CORPUSCULAR HGB CONC 34.8 g/dL (32.0-36.0); MEAN CORPUSCULAR VOLUME 83.7 fL (78.0-93.0); MONOCYTES ABSOLUTE AUTO 1.2 x10^3/uL (0.0-0.8); MONOCYTES PERCENT AUTO 8.4 % (2.0-11.0); NEUTROPHILS ABSOLUTE AUTO 11.3 x10^3/uL (1.8-7.7); PLATELET COUNT,PLT 208 x10^3/uL (130-400); RED BLOOD CELL COUNT 4.05 x10^6/uL (4.00-5.50); WHITE BLOOD CELL COUNT,WBC 14.1 x10^3/uL (4.0-10.0)
[2023-04-29] MEDS: Dextrose 5%-Lactated Ringers 1,000 ML IV SCH (15:17)
[2023-04-29] MEDS ORDERED: Piperacillin/Tazobactam 3.375 GM in Sodium Chloride 0.9% 100 ML IV SCH (20:00)
[2023-04-29 20:08] LABS: BASOPHILS ABSOLUTE AUTO 0.1 x10^3/uL (0.0-0.2); BASOPHILS PERCENT AUTO 0.6 % (0.2-1.2); EOSINOPHILS ABSOLUTE AUTO 0.1 x10^3/uL (0.0-0.5); EOSINOPHILS PERCENT AUTO 0.9 % (0.0-4.0); HEMATOCRIT 34.1 % (33.0-47.0); HEMOGLOBIN 11.8 g/dL (12.0-16.0); IMMATURE GRAN ABSOLUTE AUTO 0.02 x10^3/uL (0.00-0.07); LYMPHOCYTES ABSOLUTE AUTO 1.5 x10^3/uL (1.0-4.8); LYMPHOCYTES PERCENT AUTO 10.1 % (25.0-50.0); MEAN CORPUSCULAR HGB CONC 34.6 g/dL (32.0-36.0); MEAN CORPUSCULAR VOLUME 83.8 fL (78.0-93.0); MONOCYTES ABSOLUTE AUTO 1.4 x10^3/uL (0.0-0.8); MONOCYTES PERCENT AUTO 9.6 % (2.0-11.0); NEUTROPHILS ABSOLUTE AUTO 11.8 x10^3/uL (1.8-7.7); NEUTROPHILS PERCENT AUTO 78.7 % (50.0-80.0); PLATELET COUNT,PLT 205 x10^3/uL (130-400); RED BLOOD CELL COUNT 4.07 x10^6/uL (4.00-5.50)
[2023-04-29] MEDS: Piperacillin/Tazobactam 3.375 GM in Sodium Chloride 0.9% 100 ML IV SCH (20:12)
[2023-04-29] MEDS: Zolpidem 5 MG Tab PO SCH (20:17)
[2023-04-29] MEDS: Donepezil 10 MG Tab PO SCH (20:20)
[2023-04-29] MEDS: EYE LUBRICANT EYEBOTH SCH (20:21)
[2023-04-29] MEDS: traZODone 50 MG Tab PO SCH (20:21)
[2023-04-29 20:25] LABS: A/G RATIO 0.65; BILIRUBIN TOTAL 0.3 mg/dL (0.2-1.0); CALCIUM 8.3 mg/dL (8.5-10.1); CREATININE 1.1 mg/dL (0.55-1.02); EST CRCL DRUG DOSING (CG) 34.3 mL/min; PROTEIN TOTAL,TP 5.1 g/dL (6.4-8.2)
[2023-04-30] MEDS: Dextrose 5%-Lactated Ringers 1,000 ML IV SCH ×2 (02:20→14:35)
[2023-04-30] MEDS: Piperacillin/Tazobactam 3.375 GM in Sodium Chloride 0.9% 100 ML IV SCH ×2 (02:27→08:30)
[2023-04-30] MEDS: Albuterol/Ipratropium 3.0-0.5 MG/3 ML Neb Soln NEB SCH ×6 (02:31→23:55)
[2023-04-30] MEDS: Acetaminophen 325 MG Tab PO PRN ×3 (05:10→17:43)
[2023-04-30] MEDS: Pantoprazole 40 MG Tab.CR PO SCH (06:18)
[2023-04-30 07:46] LABS: BASOPHILS ABSOLUTE AUTO 0.1 x10^3/uL (0.0-0.2); BASOPHILS PERCENT AUTO 0.5 % (0.2-1.2); EOSINOPHILS ABSOLUTE AUTO 0.2 x10^3/uL (0.0-0.5); EOSINOPHILS PERCENT AUTO 1.3 % (0.0-4.0); HEMOGLOBIN 11.7 g/dL (12.0-16.0); IMMATURE GRAN ABSOLUTE AUTO 0.03 x10^3/uL (0.00-0.07); MEAN CORPUSCULAR HEMOGLOBIN 28.8 pg (26.0-32.0); MEAN CORPUSCULAR HGB CONC 34.4 g/dL (32.0-36.0); MEAN CORPUSCULAR VOLUME 83.7 fL (78.0-93.0); MONOCYTES PERCENT AUTO 7.6 % (2.0-11.0); NEUTROPHILS ABSOLUTE AUTO 10.5 x10^3/uL (1.8-7.7); NEUTROPHILS PERCENT AUTO 82.4 % (50.0-80.0); PLATELET COUNT,PLT 202 x10^3/uL (130-400); RED BLOOD CELL COUNT 4.06 x10^6/uL (4.00-5.50); WHITE BLOOD CELL COUNT,WBC 12.8 x10^3/uL (4.0-10.0)
[2023-04-30 08:18] LABS: A/G RATIO 0.63; ALBUMIN 1.9 g/dL (3.4-5.0); BILIRUBIN TOTAL 0.4 mg/dL (0.2-1.0); CALCIUM 8.1 mg/dL (8.5-10.1); CREATININE 1.1 mg/dL (0.55-1.02); EST CRCL DRUG DOSING (CG) 34.3 mL/min; POTASSIUM,K 3.8 mmol/L (3.5-5.1); PROTEIN TOTAL,TP 4.9 g/dL (6.4-8.2)
[2023-04-30 08:19] LABS: ANION GAP 8.8 mmol/L (5-15)
[2023-04-30] MEDS: Lactobacillus Rhamnosus GG (Probiotic) Cap PO SCH (08:46)
[2023-04-30] MEDS: Aspirin 81 MG Tab.EC PO SCH (08:46)
[2023-04-30] MEDS: DULoxetine 60 MG Cap PO SCH ×2 (08:46→20:01)
[2023-04-30] MEDS: Spironolactone 25 MG Tab PO SCH (08:46)
[2023-04-30] MEDS: Pregabalin 50 MG Cap PO SCH ×3 (08:47→20:01)
[2023-04-30] MEDS: Enoxaparin 40 MG/0.4 ML Syringe SUBCUT SCH (08:47)
[2023-04-30] MEDS: GLATIRAMER 20 MG/ML SUBCUT SCH (08:47)
[2023-04-30] MEDS: traMADol 50 MG Tab PO SCH ×2 (08:47→20:04)
[2023-04-30] MEDS: Hydrochlorothiazide 12.5 MG Cap PO SCH (08:47)
[2023-04-30] MEDS: Hypromellose 0.3% Ophth Soln 15 ML Bottle EYEBOTH SCH ×4 (08:48→20:06)
[2023-04-30 14:09] LABS: BASOPHILS ABSOLUTE AUTO 0.1 x10^3/uL (0.0-0.2); BASOPHILS PERCENT AUTO 0.4 % (0.2-1.2); EOSINOPHILS ABSOLUTE AUTO 0.2 x10^3/uL (0.0-0.5); EOSINOPHILS PERCENT AUTO 1.4 % (0.0-4.0); HEMATOCRIT 35.2 % (33.0-47.0); HEMOGLOBIN 12.5 g/dL (12.0-16.0); IMMATURE GRAN ABSOLUTE AUTO 0.01 x10^3/uL (0.00-0.07); LYMPHOCYTES ABSOLUTE AUTO 1.7 x10^3/uL (1.0-4.8); LYMPHOCYTES PERCENT AUTO 12.5 % (25.0-50.0); MEAN CORPUSCULAR HEMOGLOBIN 29.6 pg (26.0-32.0); MEAN CORPUSCULAR HGB CONC 35.5 g/dL (32.0-36.0); MEAN CORPUSCULAR VOLUME 83.2 fL (78.0-93.0); MONOCYTES ABSOLUTE AUTO 1.1 x10^3/uL (0.0-0.8); MONOCYTES PERCENT AUTO 8.5 % (2.0-11.0); NEUTROPHILS ABSOLUTE AUTO 10.3 x10^3/uL (1.8-7.7); NEUTROPHILS PERCENT AUTO 77.1 % (50.0-80.0); PLATELET COUNT,PLT 192 x10^3/uL (130-400); RED BLOOD CELL COUNT 4.23 x10^6/uL (4.00-5.50); WHITE BLOOD CELL COUNT,WBC 13.4 x10^3/uL (4.0-10.0)
[2023-04-30] MEDS: Piperacillin/Tazobactam 4.5 GM in Sodium Chloride 0.9% 100 ML IV SCH ×2 (14:35→19:58)
[2023-04-30] MEDS: Zolpidem 5 MG Tab PO SCH (20:00)
[2023-04-30] MEDS: Donepezil 10 MG Tab PO SCH (20:01)
[2023-04-30] MEDS: guaiFENesin 600 MG Tab.ER PO SCH (20:02)
[2023-04-30] MEDS: traZODone 50 MG Tab PO SCH (20:03)
[2023-04-30] MEDS: EYE LUBRICANT EYEBOTH SCH (20:06)
[2023-05-01] MEDS: Piperacillin/Tazobactam 4.5 GM in Sodium Chloride 0.9% 100 ML IV SCH ×2 (02:09→08:20)
[2023-05-01] MEDS: Albuterol/Ipratropium 3.0-0.5 MG/3 ML Neb Soln NEB SCH ×6 (02:10→22:31)
[2023-05-01] MEDS: Dextrose 5%-Lactated Ringers 1,000 ML IV SCH (02:10)
[2023-05-01] MEDS: Pantoprazole 40 MG Tab.CR PO SCH (06:00)
[2023-05-01 06:45] LABS: BASOPHILS ABSOLUTE AUTO 0.1 x10^3/uL (0.0-0.2); BASOPHILS PERCENT AUTO 0.5 % (0.2-1.2); EOSINOPHILS ABSOLUTE AUTO 0.1 x10^3/uL (0.0-0.5); EOSINOPHILS PERCENT AUTO 1.3 % (0.0-4.0); HEMATOCRIT 37.5 % (33.0-47.0); HEMOGLOBIN 12.7 g/dL (12.0-16.0); IMMATURE GRAN ABSOLUTE AUTO 0.02 x10^3/uL (0.00-0.07); LYMPHOCYTES ABSOLUTE AUTO 1.2 x10^3/uL (1.0-4.8); LYMPHOCYTES PERCENT AUTO 10.5 % (25.0-50.0); MEAN CORPUSCULAR HEMOGLOBIN 28.7 pg (26.0-32.0); MEAN CORPUSCULAR HGB CONC 33.9 g/dL (32.0-36.0); MEAN CORPUSCULAR VOLUME 84.7 fL (78.0-93.0); MONOCYTES ABSOLUTE AUTO 1.2 x10^3/uL (0.0-0.8); MONOCYTES PERCENT AUTO 10.6 % (2.0-11.0); NEUTROPHILS ABSOLUTE AUTO 8.5 x10^3/uL (1.8-7.7); NEUTROPHILS PERCENT AUTO 76.9 % (50.0-80.0); PLATELET COUNT,PLT 217 x10^3/uL (130-400); RED BLOOD CELL COUNT 4.43 x10^6/uL (4.00-5.50); WHITE BLOOD CELL COUNT,WBC 11.1 x10^3/uL (4.0-10.0)
[2023-05-01 07:01] LABS: ANION GAP 7.4 mmol/L (5-15); CALCIUM 8.6 mg/dL (8.5-10.1); EST CRCL DRUG DOSING (CG) 37.73 mL/min; POTASSIUM,K 3.4 mmol/L (3.5-5.1)
[2023-05-01] MEDS: DULoxetine 60 MG Cap PO SCH ×2 (08:20→20:44)
[2023-05-01] MEDS: Lactobacillus Rhamnosus GG (Probiotic) Cap PO SCH (08:21)
[2023-05-01] MEDS: traMADol 50 MG Tab PO SCH ×2 (08:21→20:46)
[2023-05-01] MEDS: Pregabalin 50 MG Cap PO SCH ×3 (08:21→20:45)
[2023-05-01] MEDS: Aspirin 81 MG Tab.EC PO SCH (08:24)
[2023-05-01] MEDS: Hydrochlorothiazide 12.5 MG Cap PO SCH (08:24)
[2023-05-01] MEDS: Enoxaparin 40 MG/0.4 ML Syringe SUBCUT SCH (08:25)
[2023-05-01] MEDS: guaiFENesin 600 MG Tab.ER PO SCH ×2 (08:25→20:45)
[2023-05-01] MEDS: GLATIRAMER 20 MG/ML SUBCUT SCH (08:26)
[2023-05-01] MEDS: Hypromellose 0.3% Ophth Soln 15 ML Bottle EYEBOTH SCH ×4 (08:26→20:48)
[2023-05-01] MEDS: Spironolactone 25 MG Tab PO SCH (08:27)
[2023-05-01] MEDS: Potassium Chloride 10 MEQ Tab.ER PO SCH (08:28)
[2023-05-01] MEDS ORDERED: Magnesium Sulfate/Water 2 GM in Premix Bag 1 BAG IV ONE (10:00)
[2023-05-01] MEDS ORDERED: GLATIRAMER 20 MG/ML SUBCUT SCH (11:58)
[2023-05-01] MEDS: Piperacillin/Tazobactam 3.375 GM in Sodium Chloride 0.9% 100 ML IV SCH ×2 (14:01→22:31)
[2023-05-01] MEDS: Zolpidem 5 MG Tab PO SCH (20:42)
[2023-05-01] MEDS: Donepezil 10 MG Tab PO SCH (20:44)
[2023-05-01] MEDS: traZODone 50 MG Tab PO SCH (20:45)
[2023-05-01] MEDS: EYE LUBRICANT EYEBOTH SCH (20:48)
[2023-05-01] MEDS: Acetaminophen 325 MG Tab PO PRN (22:37)
[2023-05-02] MEDS: Albuterol/Ipratropium 3.0-0.5 MG/3 ML Neb Soln NEB SCH ×3 (02:15→11:05)
[2023-05-02] MEDS: Piperacillin/Tazobactam 3.375 GM in Sodium Chloride 0.9% 100 ML IV SCH (06:29)
[2023-05-02] MEDS: Pantoprazole 40 MG Tab.CR PO SCH (06:29)
[2023-05-02 06:49] LABS: BASOPHILS ABSOLUTE AUTO 0.1 x10^3/uL (0.0-0.2); BASOPHILS PERCENT AUTO 0.7 % (0.2-1.2); EOSINOPHILS ABSOLUTE AUTO 0.3 x10^3/uL (0.0-0.5); EOSINOPHILS PERCENT AUTO 3.7 % (0.0-4.0); HEMATOCRIT 35.7 % (33.0-47.0); HEMOGLOBIN 12.1 g/dL (12.0-16.0); IMMATURE GRAN ABSOLUTE AUTO 0.02 x10^3/uL (0.00-0.07); LYMPHOCYTES ABSOLUTE AUTO 1.8 x10^3/uL (1.0-4.8); LYMPHOCYTES PERCENT AUTO 22.5 % (25.0-50.0); MEAN CORPUSCULAR HEMOGLOBIN 28.5 pg (26.0-32.0); MEAN CORPUSCULAR HGB CONC 33.9 g/dL (32.0-36.0); MONOCYTES ABSOLUTE AUTO 0.9 x10^3/uL (0.0-0.8); NEUTROPHILS PERCENT AUTO 61.9 % (50.0-80.0); PLATELET COUNT,PLT 229 x10^3/uL (130-400); RED BLOOD CELL COUNT 4.25 x10^6/uL (4.00-5.50); WHITE BLOOD CELL COUNT,WBC 8.1 x10^3/uL (4.0-10.0)
[2023-05-02 07:11] LABS: A/G RATIO 0.66; ALBUMIN 2.1 g/dL (3.4-5.0); ANION GAP 9.6 mmol/L (5-15); BILIRUBIN TOTAL 0.3 mg/dL (0.2-1.0); CALCIUM 8.4 mg/dL (8.5-10.1); CREATININE 0.9 mg/dL (0.55-1.02); EST CRCL DRUG DOSING (CG) 41.93 mL/min; POTASSIUM,K 3.6 mmol/L (3.5-5.1); PROTEIN TOTAL,TP 5.3 g/dL (6.4-8.2)
[2023-05-02] MEDS: Enoxaparin 40 MG/0.4 ML Syringe SUBCUT SCH (08:18)
[2023-05-02] MEDS: Aspirin 81 MG Tab.EC PO SCH (08:19)
[2023-05-02] MEDS: Lactobacillus Rhamnosus GG (Probiotic) Cap PO SCH (08:20)
[2023-05-02] MEDS: DULoxetine 60 MG Cap PO SCH (08:20)
[2023-05-02] MEDS: Potassium Chloride 10 MEQ Tab.ER PO SCH (08:20)
[2023-05-02] MEDS: traMADol 50 MG Tab PO SCH (08:20)
[2023-05-02] MEDS: guaiFENesin 600 MG Tab.ER PO SCH (08:20)
[2023-05-02] MEDS: Hydrochlorothiazide 12.5 MG Cap PO SCH (08:20)
[2023-05-02] MEDS: Spironolactone 25 MG Tab PO SCH (08:20)
[2023-05-02] MEDS: Pregabalin 50 MG Cap PO SCH (08:21)
[2023-05-02] MEDS: Hypromellose 0.3% Ophth Soln 15 ML Bottle EYEBOTH SCH (08:22)
[2023-05-02] MEDS ORDERED: Furosemide 20 MG Tab PO ONE (09:15)
[2023-05-02] MEDS: Acetaminophen 325 MG Tab PO PRN (10:32)
[2023-05-02 10:59] VITALS: BP 152/80; PULSE 46
[2023-05-02] MEDS ORDERED: Amoxicillin/Clavulanate K 600-42.9 MG/5 ML Susp 125 ML Bottle PO SCH (18:00)
[2023-05-02] MEDS ORDERED: Amoxicillin/Clavulanate K 875-125 MG Tab PO SCH (18:00)
== END 2023-05-02 10:15 | disposition swing bed (61) | DRG 871 ==
LOC: VM.MS 12:30
PROVIDERS: ADMIT Family Medicine; ATTEND Internal Medicine
DX: A41.50 Gram-negative sepsis, unspecified (principal); J15.6 Pneumonia due to other Gram-negative bacteria; J96.01 Acute respiratory failure with hypoxia; J15.9 Unspecified bacterial pneumonia; J44.0 Chronic obstructive pulmonary disease with (acute) lower respiratory infection; J44.1 Chronic obstructive pulmonary disease with (acute) exacerbation; F17.210 Nicotine dependence, cigarettes, uncomplicated; G47.00 Insomnia, unspecified; E87.6 Hypokalemia; E83.42 Hypomagnesemia; G35 Multiple sclerosis; R33.9 Retention of urine, unspecified; G31.84 Mild cognitive impairment of uncertain or unknown etiology; Z20.822 Contact with and (suspected) exposure to COVID-19; I10 Essential (primary) hypertension; F32.9 Major depressive disorder, single episode, unspecified; G89.4 Chronic pain syndrome; R05.1 Acute cough; J84.10 Pulmonary fibrosis, unspecified; G60.9 Hereditary and idiopathic neuropathy, unspecified; K59.09 Other constipation; M81.0 Age-related osteoporosis without current pathological fracture; H35.30 Unspecified macular degeneration; E86.0 Dehydration; N31.9 Neuromuscular dysfunction of bladder, unspecified; D64.9 Anemia, unspecified; Z79.899 Other long term (current) drug therapy; Z99.81 Dependence on supplemental oxygen; Z98.890 Other specified postprocedural states; Z98.84 Bariatric surgery status; Z98.51 Tubal ligation status; Z90.49 Acquired absence of other specified parts of digestive tract; A41.89 Other specified sepsis
CPT/HCPCS: 0241U; 36415; 71046; 71250; 80048; 80053; 81001; 83605; 83735; 84145; 85025; 86140; 87040; 87070; 87077; 87086; 87184; 87186; 87205; 94640; 94667; 94668; 94760; 97162-GP; 97165-GO; A9270-GY; J0456; J0696; J1650; J2543; J3475; J3490; J7050; J7121; J7613-GY; J7620-GY

== ENCOUNTER 2023-05-02 10:02 | Inpatient (IN) | payer MEDICARE, MEDICAID ==
[2023-05-02] MEDS ORDERED: traZODone 50 MG Tab PO PRN (10:18)
[2023-05-02] MEDS ORDERED: Ondansetron 4 MG Tab.DIS PO PRN (10:18)
[2023-05-02] MEDS ORDERED: Pregabalin 50 MG Cap PO PRN (10:18)
[2023-05-02] MEDS ORDERED: Nystatin Crm 30 GM Tube TOP PRN (10:18)
[2023-05-02] MEDS ORDERED: Albuterol/Ipratropium 3.0-0.5 MG/3 ML Neb Soln NEB SCH (11:00)
[2023-05-02] MEDS: Hypromellose 0.3% Ophth Soln 15 ML Bottle EYEBOTH SCH ×3 (13:45→20:14)
[2023-05-02] MEDS: Pregabalin 50 MG Cap PO SCH ×2 (13:45→20:16)
[2023-05-02] MEDS: Amoxicillin/Clavulanate K 875-125 MG Tab PO SCH (18:27)
[2023-05-02] MEDS: Albuterol/Ipratropium 3.0-0.5 MG/3 ML Neb Soln NEB SCH (18:27)
[2023-05-02] MEDS: guaiFENesin 600 MG Tab.ER PO SCH (20:16)
[2023-05-02] MEDS: traMADol 50 MG Tab PO SCH (20:17)
[2023-05-02] MEDS: Donepezil 10 MG Tab PO SCH (20:19)
[2023-05-02] MEDS: DULoxetine 60 MG Cap PO SCH (20:19)
[2023-05-02] MEDS: traZODone 50 MG Tab PO SCH (20:19)
[2023-05-02] MEDS: Mineral Oil/Petrolatum Ophth Oint 3.5 GM Tube EYEBOTH SCH (20:27)
[2023-05-02] MEDS: Zolpidem 5 MG Tab PO SCH (20:28)
[2023-05-03] MEDS: Albuterol/Ipratropium 3.0-0.5 MG/3 ML Neb Soln NEB SCH ×4 (00:04→18:33)
[2023-05-03] MEDS: Pantoprazole 40 MG Tab.CR PO SCH (06:36)
[2023-05-03] MEDS: Amoxicillin/Clavulanate K 875-125 MG Tab PO SCH ×2 (08:24→17:52)
[2023-05-03] MEDS: guaiFENesin 600 MG Tab.ER PO SCH ×2 (09:06→21:13)
[2023-05-03] MEDS: Potassium Chloride 10 MEQ Tab.ER PO SCH (09:06)
[2023-05-03] MEDS: Pregabalin 50 MG Cap PO SCH ×3 (09:08→21:10)
[2023-05-03] MEDS: Aspirin 81 MG Tab.EC PO SCH (09:10)
[2023-05-03] MEDS: DULoxetine 60 MG Cap PO SCH ×2 (09:10→21:09)
[2023-05-03] MEDS: Lactobacillus Rhamnosus GG (Probiotic) Cap PO SCH (09:10)
[2023-05-03] MEDS: Spironolactone 25 MG Tab PO SCH (09:12)
[2023-05-03] MEDS: Hydrochlorothiazide 12.5 MG Cap PO SCH (09:12)
[2023-05-03] MEDS: traMADol 50 MG Tab PO SCH ×2 (09:13→21:08)
[2023-05-03] MEDS: Hypromellose 0.3% Ophth Soln 15 ML Bottle EYEBOTH SCH ×4 (09:15→21:05)
[2023-05-03] MEDS: GLATIRAMER 20 MG SUBCUT SCH (09:34)
[2023-05-03] MEDS: Acetaminophen 325 MG Tab PO PRN (19:35)
[2023-05-03] MEDS: Zolpidem 5 MG Tab PO SCH (21:07)
[2023-05-03] MEDS: traZODone 50 MG Tab PO SCH (21:10)
[2023-05-03] MEDS: Donepezil 10 MG Tab PO SCH (21:11)
[2023-05-03] MEDS: Mineral Oil/Petrolatum Ophth Oint 3.5 GM Tube EYEBOTH SCH (21:13)
[2023-05-04] MEDS: Albuterol/Ipratropium 3.0-0.5 MG/3 ML Neb Soln NEB SCH ×4 (00:23→18:01)
[2023-05-04] MEDS: Pantoprazole 40 MG Tab.CR PO SCH (06:24)
[2023-05-04] MEDS: Amoxicillin/Clavulanate K 875-125 MG Tab PO SCH ×2 (07:46→18:01)
[2023-05-04] MEDS: Lactobacillus Rhamnosus GG (Probiotic) Cap PO SCH (08:44)
[2023-05-04] MEDS: Pregabalin 50 MG Cap PO SCH ×3 (08:44→20:58)
[2023-05-04] MEDS: Hydrochlorothiazide 12.5 MG Cap PO SCH (08:46)
[2023-05-04] MEDS: Aspirin 81 MG Tab.EC PO SCH (08:47)
[2023-05-04] MEDS: guaiFENesin 600 MG Tab.ER PO SCH ×2 (08:47→20:54)
[2023-05-04] MEDS: Spironolactone 25 MG Tab PO SCH (08:48)
[2023-05-04] MEDS: Potassium Chloride 10 MEQ Tab.ER PO SCH (08:50)
[2023-05-04] MEDS: DULoxetine 60 MG Cap PO SCH ×2 (08:50→21:01)
[2023-05-04] MEDS: traMADol 50 MG Tab PO SCH ×2 (08:50→21:00)
[2023-05-04] MEDS: GLATIRAMER 20 MG SUBCUT SCH (08:52)
[2023-05-04] MEDS: Hypromellose 0.3% Ophth Soln 15 ML Bottle EYEBOTH SCH ×4 (08:54→20:53)
[2023-05-04] MEDS: Mineral Oil/Petrolatum Ophth Oint 3.5 GM Tube EYEBOTH SCH (20:54)
[2023-05-04] MEDS: Acetaminophen 325 MG Tab PO PRN (20:55)
[2023-05-04] MEDS: Donepezil 10 MG Tab PO SCH (20:57)
[2023-05-04] MEDS: traZODone 50 MG Tab PO SCH (20:58)
[2023-05-04] MEDS: Zolpidem 5 MG Tab PO SCH (21:01)
[2023-05-04] MEDS: Albuterol 0.083% 2.5 MG/3 ML Neb Soln NEB PRN (21:08)
[2023-05-05] MEDS: Albuterol/Ipratropium 3.0-0.5 MG/3 ML Neb Soln NEB SCH ×4 (00:43→18:28)
[2023-05-05] MEDS: Pantoprazole 40 MG Tab.CR PO SCH (06:26)
[2023-05-05] MEDS: Hydrochlorothiazide 12.5 MG Cap PO SCH (08:52)
[2023-05-05] MEDS: Amoxicillin/Clavulanate K 875-125 MG Tab PO SCH ×2 (08:52→18:28)
[2023-05-05] MEDS: Spironolactone 25 MG Tab PO SCH (08:52)
[2023-05-05] MEDS: Lactobacillus Rhamnosus GG (Probiotic) Cap PO SCH (08:52)
[2023-05-05] MEDS: Pregabalin 50 MG Cap PO SCH ×3 (08:54→21:09)
[2023-05-05] MEDS: Potassium Chloride 10 MEQ Tab.ER PO SCH (08:54)
[2023-05-05] MEDS: guaiFENesin 600 MG Tab.ER PO SCH ×2 (08:54→21:11)
[2023-05-05] MEDS: Aspirin 81 MG Tab.EC PO SCH (08:54)
[2023-05-05] MEDS: traMADol 50 MG Tab PO SCH ×2 (08:55→21:10)
[2023-05-05] MEDS: Hypromellose 0.3% Ophth Soln 15 ML Bottle EYEBOTH SCH ×4 (08:56→21:09)
[2023-05-05] MEDS: DULoxetine 60 MG Cap PO SCH ×2 (08:56→21:11)
[2023-05-05 08:57] LABS: BASOPHILS ABSOLUTE AUTO 0.1 x10^3/uL (0.0-0.2); BASOPHILS PERCENT AUTO 0.5 % (0.2-1.2); EOSINOPHILS ABSOLUTE AUTO 0.3 x10^3/uL (0.0-0.5); EOSINOPHILS PERCENT AUTO 2.7 % (0.0-4.0); HEMATOCRIT 36.7 % (33.0-47.0); HEMOGLOBIN 12.7 g/dL (12.0-16.0); IMMATURE GRAN ABSOLUTE AUTO 0.15 x10^3/uL (0.00-0.07); LYMPHOCYTES ABSOLUTE AUTO 1.4 x10^3/uL (1.0-4.8); LYMPHOCYTES PERCENT AUTO 12.5 % (25.0-50.0); MEAN CORPUSCULAR HEMOGLOBIN 28.5 pg (26.0-32.0); MEAN CORPUSCULAR HGB CONC 34.6 g/dL (32.0-36.0); MEAN CORPUSCULAR VOLUME 82.3 fL (78.0-93.0); MONOCYTES PERCENT AUTO 8.6 % (2.0-11.0); NEUTROPHILS ABSOLUTE AUTO 8.2 x10^3/uL (1.8-7.7); NEUTROPHILS PERCENT AUTO 74.3 % (50.0-80.0); PLATELET COUNT,PLT 291 x10^3/uL (130-400); RED BLOOD CELL COUNT 4.46 x10^6/uL (4.00-5.50); WHITE BLOOD CELL COUNT,WBC 11.1 x10^3/uL (4.0-10.0)
[2023-05-05] MEDS: GLATIRAMER 20 MG SUBCUT SCH (09:05)
[2023-05-05 09:16] LABS: A/G RATIO 0.58; ALBUMIN 2.3 g/dL (3.4-5.0); BILIRUBIN TOTAL 0.2 mg/dL (0.2-1.0); CALCIUM 8.7 mg/dL (8.5-10.1); CREATININE 0.9 mg/dL (0.55-1.02); EST CRCL DRUG DOSING (CG) 41.91 mL/min; POTASSIUM,K 4.1 mmol/L (3.5-5.1); PROTEIN TOTAL,TP 6.3 g/dL (6.4-8.2)
[2023-05-05 09:17] LABS: ANION GAP 14.1 mmol/L (5-15)
[2023-05-05] MEDS ORDERED: Furosemide 20 MG Tab PO ONE (16:10)
[2023-05-05] MEDS: Mineral Oil/Petrolatum Ophth Oint 3.5 GM Tube EYEBOTH SCH (21:09)
[2023-05-05] MEDS: traZODone 50 MG Tab PO SCH (21:11)
[2023-05-05] MEDS: Donepezil 10 MG Tab PO SCH (21:11)
[2023-05-05] MEDS: Zolpidem 5 MG Tab PO SCH (21:16)
[2023-05-06] MEDS: Albuterol/Ipratropium 3.0-0.5 MG/3 ML Neb Soln NEB SCH ×4 (00:32→18:45)
[2023-05-06] MEDS: Pantoprazole 40 MG Tab.CR PO SCH (06:33)
[2023-05-06] MEDS: DULoxetine 60 MG Cap PO SCH ×2 (09:31→20:10)
[2023-05-06] MEDS: traMADol 50 MG Tab PO SCH ×2 (09:31→20:09)
[2023-05-06] MEDS: Hydrochlorothiazide 12.5 MG Cap PO SCH (09:31)
[2023-05-06] MEDS: guaiFENesin 600 MG Tab.ER PO SCH ×2 (09:32→20:10)
[2023-05-06] MEDS: Lactobacillus Rhamnosus GG (Probiotic) Cap PO SCH (09:32)
[2023-05-06] MEDS: Pregabalin 50 MG Cap PO SCH ×3 (09:32→20:08)
[2023-05-06] MEDS: Spironolactone 25 MG Tab PO SCH (09:33)
[2023-05-06] MEDS: Aspirin 81 MG Tab.EC PO SCH (09:33)
[2023-05-06] MEDS: Potassium Chloride 10 MEQ Tab.ER PO SCH (09:33)
[2023-05-06] MEDS: Hypromellose 0.3% Ophth Soln 15 ML Bottle EYEBOTH SCH ×4 (09:34→20:08)
[2023-05-06] MEDS: GLATIRAMER 20 MG SUBCUT SCH (09:34)
[2023-05-06] MEDS: Mineral Oil/Petrolatum Ophth Oint 3.5 GM Tube EYEBOTH SCH (20:08)
[2023-05-06] MEDS: Donepezil 10 MG Tab PO SCH (20:10)
[2023-05-06] MEDS: traZODone 50 MG Tab PO SCH (20:11)
[2023-05-06] MEDS: Zolpidem 5 MG Tab PO SCH (20:12)
[2023-05-07] MEDS: Albuterol/Ipratropium 3.0-0.5 MG/3 ML Neb Soln NEB SCH ×4 (00:15→18:28)
[2023-05-07] MEDS: Pantoprazole 40 MG Tab.CR PO SCH (06:01)
[2023-05-07] MEDS: Acetaminophen 325 MG Tab PO PRN (07:05)
[2023-05-07] MEDS: GLATIRAMER 20 MG SUBCUT SCH (09:48)
[2023-05-07] MEDS: Spironolactone 25 MG Tab PO SCH (09:49)
[2023-05-07] MEDS: guaiFENesin 600 MG Tab.ER PO SCH ×2 (09:49→20:24)
[2023-05-07] MEDS: Pregabalin 50 MG Cap PO SCH ×3 (09:50→20:23)
[2023-05-07] MEDS: Lactobacillus Rhamnosus GG (Probiotic) Cap PO SCH (09:50)
[2023-05-07] MEDS: DULoxetine 60 MG Cap PO SCH ×2 (09:50→20:24)
[2023-05-07] MEDS: traMADol 50 MG Tab PO SCH ×2 (09:50→20:22)
[2023-05-07] MEDS: Hydrochlorothiazide 12.5 MG Cap PO SCH (09:52)
[2023-05-07] MEDS: Aspirin 81 MG Tab.EC PO SCH (09:52)
[2023-05-07] MEDS: Hypromellose 0.3% Ophth Soln 15 ML Bottle EYEBOTH SCH ×4 (09:53→20:22)
[2023-05-07] MEDS: Potassium Chloride 10 MEQ Tab.ER PO SCH (10:01)
[2023-05-07] MEDS: Zolpidem 5 MG Tab PO SCH (20:24)
[2023-05-07] MEDS: Donepezil 10 MG Tab PO SCH (20:24)
[2023-05-07] MEDS: traZODone 50 MG Tab PO SCH (20:24)
[2023-05-07] MEDS: Mineral Oil/Petrolatum Ophth Oint 3.5 GM Tube EYEBOTH SCH (20:25)
[2023-05-08] MEDS: Albuterol/Ipratropium 3.0-0.5 MG/3 ML Neb Soln NEB SCH ×4 (00:52→18:31)
[2023-05-08] MEDS: Acetaminophen 325 MG Tab PO PRN ×3 (04:01→21:08)
[2023-05-08] MEDS: Pantoprazole 40 MG Tab.CR PO SCH (06:24)
[2023-05-08 07:22] LABS: BASOPHILS ABSOLUTE AUTO 0.1 x10^3/uL (0.0-0.2); BASOPHILS PERCENT AUTO 0.7 % (0.2-1.2); EOSINOPHILS ABSOLUTE AUTO 0.5 x10^3/uL (0.0-0.5); EOSINOPHILS PERCENT AUTO 4.4 % (0.0-4.0); HEMATOCRIT 36.6 % (33.0-47.0); HEMOGLOBIN 12.5 g/dL (12.0-16.0); LYMPHOCYTES ABSOLUTE AUTO 3.6 x10^3/uL (1.0-4.8); LYMPHOCYTES PERCENT AUTO 29.1 % (25.0-50.0); MEAN CORPUSCULAR HEMOGLOBIN 28.7 pg (26.0-32.0); MEAN CORPUSCULAR HGB CONC 34.2 g/dL (32.0-36.0); MEAN CORPUSCULAR VOLUME 84.1 fL (78.0-93.0); MONOCYTES ABSOLUTE AUTO 0.8 x10^3/uL (0.0-0.8); MONOCYTES PERCENT AUTO 6.2 % (2.0-11.0); NEUTROPHILS ABSOLUTE AUTO 7.2 x10^3/uL (1.8-7.7); NEUTROPHILS PERCENT AUTO 58.8 % (50.0-80.0); PLATELET COUNT,PLT 299 x10^3/uL (130-400); RED BLOOD CELL COUNT 4.35 x10^6/uL (4.00-5.50); WHITE BLOOD CELL COUNT,WBC 12.3 x10^3/uL (4.0-10.0)
[2023-05-08 07:44] LABS: A/G RATIO 0.63; ALBUMIN 2.2 g/dL (3.4-5.0); ANION GAP 15.1 mmol/L (5-15); BILIRUBIN TOTAL 0.2 mg/dL (0.2-1.0); CALCIUM 8.4 mg/dL (8.5-10.1); CREATININE 1.2 mg/dL (0.55-1.02); EST CRCL DRUG DOSING (CG) 31.43 mL/min; POTASSIUM,K 3.1 mmol/L (3.5-5.1); PROTEIN TOTAL,TP 5.7 g/dL (6.4-8.2)
[2023-05-08] MEDS: Pregabalin 50 MG Cap PO SCH ×3 (09:43→20:18)
[2023-05-08] MEDS: Hydrochlorothiazide 12.5 MG Cap PO SCH (09:43)
[2023-05-08] MEDS: Aspirin 81 MG Tab.EC PO SCH (09:44)
[2023-05-08] MEDS: guaiFENesin 600 MG Tab.ER PO SCH ×2 (09:45→20:17)
[2023-05-08] MEDS: traMADol 50 MG Tab PO SCH ×2 (09:46→20:19)
[2023-05-08] MEDS: DULoxetine 60 MG Cap PO SCH ×2 (09:47→20:19)
[2023-05-08] MEDS: Lactobacillus Rhamnosus GG (Probiotic) Cap PO SCH (09:47)
[2023-05-08] MEDS: Spironolactone 25 MG Tab PO SCH (09:48)
[2023-05-08] MEDS: Hypromellose 0.3% Ophth Soln 15 ML Bottle EYEBOTH SCH ×4 (09:50→20:16)
[2023-05-08] MEDS: Potassium Chloride 10 MEQ Tab.ER PO SCH ×2 (09:51→17:37)
[2023-05-08] MEDS: GLATIRAMER 20 MG SUBCUT SCH (09:55)
[2023-05-08] MEDS: Mineral Oil/Petrolatum Ophth Oint 3.5 GM Tube EYEBOTH SCH (20:17)
[2023-05-08] MEDS: Donepezil 10 MG Tab PO SCH (20:18)
[2023-05-08] MEDS: Zolpidem 5 MG Tab PO SCH (20:18)
[2023-05-08] MEDS: traZODone 50 MG Tab PO SCH (20:19)
[2023-05-09] MEDS: Albuterol/Ipratropium 3.0-0.5 MG/3 ML Neb Soln NEB SCH ×4 (00:30→18:19)
[2023-05-09] MEDS: Acetaminophen 325 MG Tab PO PRN ×2 (03:34→15:53)
[2023-05-09] MEDS: Pantoprazole 40 MG Tab.CR PO SCH (06:02)
[2023-05-09] MEDS: Potassium Chloride 10 MEQ Tab.ER PO SCH ×2 (08:43→18:19)
[2023-05-09] MEDS: guaiFENesin 600 MG Tab.ER PO SCH ×2 (08:44→20:00)
[2023-05-09] MEDS: Spironolactone 25 MG Tab PO SCH (08:44)
[2023-05-09] MEDS: Lactobacillus Rhamnosus GG (Probiotic) Cap PO SCH (08:44)
[2023-05-09] MEDS: Aspirin 81 MG Tab.EC PO SCH (08:44)
[2023-05-09] MEDS: Hydrochlorothiazide 12.5 MG Cap PO SCH (08:44)
[2023-05-09] MEDS: traMADol 50 MG Tab PO SCH ×2 (08:45→20:01)
[2023-05-09] MEDS: DULoxetine 60 MG Cap PO SCH ×2 (08:45→20:02)
[2023-05-09] MEDS: Pregabalin 50 MG Cap PO SCH ×3 (08:45→20:01)
[2023-05-09] MEDS: Hypromellose 0.3% Ophth Soln 15 ML Bottle EYEBOTH SCH ×4 (08:46→20:04)
[2023-05-09] MEDS: GLATIRAMER 20 MG SUBCUT SCH (08:46)
[2023-05-09] MEDS: Donepezil 10 MG Tab PO SCH (20:03)
[2023-05-09] MEDS: traZODone 50 MG Tab PO SCH (20:03)
[2023-05-09] MEDS: Zolpidem 5 MG Tab PO SCH (20:03)
[2023-05-09] MEDS: Mineral Oil/Petrolatum Ophth Oint 3.5 GM Tube EYEBOTH SCH (20:04)
[2023-05-10] MEDS: Albuterol/Ipratropium 3.0-0.5 MG/3 ML Neb Soln NEB SCH ×4 (01:39→18:23)
[2023-05-10] MEDS: Pantoprazole 40 MG Tab.CR PO SCH (06:11)
[2023-05-10] MEDS: Spironolactone 25 MG Tab PO SCH (09:04)
[2023-05-10] MEDS: Aspirin 81 MG Tab.EC PO SCH (09:04)
[2023-05-10] MEDS: guaiFENesin 600 MG Tab.ER PO SCH ×2 (09:05→20:28)
[2023-05-10] MEDS: traMADol 50 MG Tab PO SCH ×2 (09:05→20:27)
[2023-05-10] MEDS: Hydrochlorothiazide 12.5 MG Cap PO SCH (09:05)
[2023-05-10] MEDS: Potassium Chloride 10 MEQ Tab.ER PO SCH ×2 (09:05→17:43)
[2023-05-10] MEDS: Pregabalin 50 MG Cap PO SCH ×3 (09:05→20:27)
[2023-05-10] MEDS: DULoxetine 60 MG Cap PO SCH ×2 (09:05→20:28)
[2023-05-10] MEDS: Lactobacillus Rhamnosus GG (Probiotic) Cap PO SCH (09:05)
[2023-05-10] MEDS: GLATIRAMER 20 MG SUBCUT SCH (09:06)
[2023-05-10] MEDS: Hypromellose 0.3% Ophth Soln 15 ML Bottle EYEBOTH SCH ×4 (09:10→20:29)
[2023-05-10] MEDS: Acetaminophen 325 MG Tab PO PRN (14:32)
[2023-05-10] MEDS: Zolpidem 5 MG Tab PO SCH (20:28)
[2023-05-10] MEDS: traZODone 50 MG Tab PO SCH (20:28)
[2023-05-10] MEDS: Donepezil 10 MG Tab PO SCH (20:28)
[2023-05-10] MEDS: Mineral Oil/Petrolatum Ophth Oint 3.5 GM Tube EYEBOTH SCH (20:29)
[2023-05-11] MEDS: Albuterol/Ipratropium 3.0-0.5 MG/3 ML Neb Soln NEB SCH ×5 (00:24→18:07)
[2023-05-11] MEDS: Acetaminophen 325 MG Tab PO PRN ×5 (00:56→20:18)
[2023-05-11] MEDS: Pantoprazole 40 MG Tab.CR PO SCH ×2 (05:11→06:33)
[2023-05-11] MEDS: Aspirin 81 MG Tab.EC PO SCH (09:10)
[2023-05-11] MEDS: traMADol 50 MG Tab PO SCH ×2 (09:10→20:17)
[2023-05-11] MEDS: Pregabalin 50 MG Cap PO SCH ×3 (09:11→20:17)
[2023-05-11] MEDS: Hydrochlorothiazide 12.5 MG Cap PO SCH (09:11)
[2023-05-11] MEDS: Lactobacillus Rhamnosus GG (Probiotic) Cap PO SCH (09:11)
[2023-05-11] MEDS: Potassium Chloride 10 MEQ Tab.ER PO SCH ×2 (09:11→18:06)
[2023-05-11] MEDS: Spironolactone 25 MG Tab PO SCH (09:12)
[2023-05-11] MEDS: guaiFENesin 600 MG Tab.ER PO SCH ×2 (09:12→20:17)
[2023-05-11] MEDS: DULoxetine 60 MG Cap PO SCH ×2 (09:12→20:18)
[2023-05-11] MEDS: Hypromellose 0.3% Ophth Soln 15 ML Bottle EYEBOTH SCH ×4 (09:12→20:16)
[2023-05-11] MEDS: Menthol/Zinc Oxide Ointment 3.5 GM Tube TOP PRN (09:14)
[2023-05-11] MEDS: GLATIRAMER 20 MG SUBCUT SCH (09:30)
[2023-05-11] MEDS: Mineral Oil/Petrolatum Ophth Oint 3.5 GM Tube EYEBOTH SCH (20:16)
[2023-05-11] MEDS: Donepezil 10 MG Tab PO SCH (20:18)
[2023-05-11] MEDS: Zolpidem 5 MG Tab PO SCH (20:18)
[2023-05-11] MEDS: traZODone 50 MG Tab PO SCH (20:18)
[2023-05-11] MEDS: Albuterol 0.083% 2.5 MG/3 ML Neb Soln NEB PRN (20:19)
[2023-05-12] MEDS: Albuterol/Ipratropium 3.0-0.5 MG/3 ML Neb Soln NEB SCH ×4 (03:39→18:29)
[2023-05-12 07:20] LABS: HEMATOCRIT 35.2 % (33.0-47.0); HEMOGLOBIN 12.4 g/dL (12.0-16.0); MEAN CORPUSCULAR HGB CONC 35.2 g/dL (32.0-36.0); MEAN CORPUSCULAR VOLUME 82.2 fL (78.0-93.0); PLATELET COUNT,PLT 321 x10^3/uL (130-400); RED BLOOD CELL COUNT 4.28 x10^6/uL (4.00-5.50); WHITE BLOOD CELL COUNT,WBC 9.9 x10^3/uL (4.0-10.0)
[2023-05-12] MEDS: Pantoprazole 40 MG Tab.CR PO SCH (07:30)
[2023-05-12 07:40] LABS: CALCIUM 8.7 mg/dL (8.5-10.1); EST CRCL DRUG DOSING (CG) 37.72 mL/min; POTASSIUM,K 4.3 mmol/L (3.5-5.1)
[2023-05-12 07:41] LABS: ANION GAP 14.3 mmol/L (5-15)
[2023-05-12 08:00] LABS: BAND PERCENT MAN 3 % (0-6); BASOPHILS ABSOLUTE MAN 0.2 x10^3/uL (0.0-0.2); BASOPHILS PERCENT MAN 2 % (0-1); EOSINOPHILS ABSOLUTE MAN 0.3 x10^3/uL (0.0-0.5); EOSINOPHILS PERCENT MAN 3 % (0-4); LYMPHOCYTES ABSOLUTE MAN 2.7 x10^3/uL (1.0-4.8); LYMPHOCYTES PERCENT MAN 27 % (25-50); MONOCYTES ABSOLUTE MAN 0.6 x10^3/uL (0.0-0.8); MONOCYTES PERCENT MAN 6 % (2-11); NEUTROPHILS ABSOLUTE MAN 6.1 x10^3/uL (1.8-7.7); SEG NEUTROPHILS PERCENT MAN 59 % (50-80)
[2023-05-12 08:02] LABS: PLATELET COUNT ESTIMATE ADEQUATE
[2023-05-12] MEDS: Spironolactone 25 MG Tab PO SCH (09:09)
[2023-05-12] MEDS: Pregabalin 50 MG Cap PO SCH ×3 (09:09→20:09)
[2023-05-12] MEDS: Lactobacillus Rhamnosus GG (Probiotic) Cap PO SCH ×2 (09:10→20:09)
[2023-05-12] MEDS: Hydrochlorothiazide 12.5 MG Cap PO SCH (09:10)
[2023-05-12] MEDS: Potassium Chloride 10 MEQ Tab.ER PO SCH ×2 (09:10→09:17)
[2023-05-12] MEDS: Aspirin 81 MG Tab.EC PO SCH (09:10)
[2023-05-12] MEDS: guaiFENesin 600 MG Tab.ER PO SCH ×2 (09:10→20:12)
[2023-05-12] MEDS: DULoxetine 60 MG Cap PO SCH ×2 (09:10→20:12)
[2023-05-12] MEDS: GLATIRAMER 20 MG SUBCUT SCH (09:11)
[2023-05-12] MEDS: Hypromellose 0.3% Ophth Soln 15 ML Bottle EYEBOTH SCH ×4 (09:11→20:08)
[2023-05-12] MEDS: traMADol 50 MG Tab PO SCH ×2 (09:12→20:10)
[2023-05-12] MEDS: Acetaminophen 325 MG Tab PO PRN (18:29)
[2023-05-12] MEDS: Donepezil 10 MG Tab PO SCH (20:12)
[2023-05-12] MEDS: traZODone 50 MG Tab PO SCH (20:12)
[2023-05-12] MEDS: Zolpidem 5 MG Tab PO SCH (20:13)
[2023-05-12] MEDS: Mineral Oil/Petrolatum Ophth Oint 3.5 GM Tube EYEBOTH SCH (20:13)
[2023-05-13] MEDS: Albuterol/Ipratropium 3.0-0.5 MG/3 ML Neb Soln NEB SCH ×4 (01:26→18:20)
[2023-05-13] MEDS: Pantoprazole 40 MG Tab.CR PO SCH (06:19)
[2023-05-13] MEDS: guaiFENesin 600 MG Tab.ER PO SCH ×2 (08:32→20:10)
[2023-05-13] MEDS: DULoxetine 60 MG Cap PO SCH ×2 (08:32→20:11)
[2023-05-13] MEDS: Lactobacillus Rhamnosus GG (Probiotic) Cap PO SCH ×2 (08:33→20:10)
[2023-05-13] MEDS: Potassium Chloride 10 MEQ Tab.ER PO SCH (08:33)
[2023-05-13] MEDS: Pregabalin 50 MG Cap PO SCH ×3 (08:35→20:11)
[2023-05-13] MEDS: traMADol 50 MG Tab PO SCH ×2 (08:35→20:12)
[2023-05-13] MEDS: Aspirin 81 MG Tab.EC PO SCH (08:37)
[2023-05-13] MEDS: Spironolactone 25 MG Tab PO SCH (08:38)
[2023-05-13] MEDS: Hydrochlorothiazide 12.5 MG Cap PO SCH (08:39)
[2023-05-13] MEDS: Hypromellose 0.3% Ophth Soln 15 ML Bottle EYEBOTH SCH ×4 (08:41→20:09)
[2023-05-13] MEDS: GLATIRAMER 20 MG SUBCUT SCH (08:45)
[2023-05-13] MEDS: Acetaminophen 325 MG Tab PO PRN ×2 (16:38→21:31)
[2023-05-13] MEDS: Zolpidem 5 MG Tab PO SCH (20:09)
[2023-05-13] MEDS: Mineral Oil/Petrolatum Ophth Oint 3.5 GM Tube EYEBOTH SCH (20:09)
[2023-05-13] MEDS: traZODone 50 MG Tab PO SCH (20:10)
[2023-05-13] MEDS: Donepezil 10 MG Tab PO SCH (20:12)
[2023-05-14] MEDS: Albuterol/Ipratropium 3.0-0.5 MG/3 ML Neb Soln NEB SCH ×4 (06:14→18:10)
[2023-05-14] MEDS: Pantoprazole 40 MG Tab.CR PO SCH (06:24)
[2023-05-14] MEDS: Hydrochlorothiazide 12.5 MG Cap PO SCH (08:24)
[2023-05-14] MEDS: Potassium Chloride 10 MEQ Tab.ER PO SCH (08:24)
[2023-05-14] MEDS: guaiFENesin 600 MG Tab.ER PO SCH ×2 (08:25→20:38)
[2023-05-14] MEDS: traMADol 50 MG Tab PO SCH ×2 (08:26→20:38)
[2023-05-14] MEDS: Aspirin 81 MG Tab.EC PO SCH (08:26)
[2023-05-14] MEDS: Pregabalin 50 MG Cap PO SCH ×3 (08:27→20:37)
[2023-05-14] MEDS: Spironolactone 25 MG Tab PO SCH (08:28)
[2023-05-14] MEDS: Lactobacillus Rhamnosus GG (Probiotic) Cap PO SCH ×2 (08:29→20:37)
[2023-05-14] MEDS: DULoxetine 60 MG Cap PO SCH ×2 (08:30→20:38)
[2023-05-14] MEDS: GLATIRAMER 20 MG SUBCUT SCH (08:30)
[2023-05-14] MEDS: Hypromellose 0.3% Ophth Soln 15 ML Bottle EYEBOTH SCH ×4 (08:31→20:38)
[2023-05-14] MEDS: Acetaminophen 325 MG Tab PO PRN ×2 (10:50→20:37)
[2023-05-14] MEDS: Donepezil 10 MG Tab PO SCH (20:38)
[2023-05-14] MEDS: traZODone 50 MG Tab PO SCH (20:38)
[2023-05-14] MEDS: Mineral Oil/Petrolatum Ophth Oint 3.5 GM Tube EYEBOTH SCH (20:39)
[2023-05-14] MEDS: Zolpidem 5 MG Tab PO SCH (21:04)
[2023-05-15] MEDS: Albuterol/Ipratropium 3.0-0.5 MG/3 ML Neb Soln NEB SCH ×4 (00:28→18:24)
[2023-05-15] MEDS: Albuterol 0.083% 2.5 MG/3 ML Neb Soln NEB PRN (04:42)
[2023-05-15] MEDS: Pantoprazole 40 MG Tab.CR PO SCH ×2 (04:42→06:00)
[2023-05-15] MEDS: Pregabalin 50 MG Cap PO SCH ×3 (09:03→20:01)
[2023-05-15] MEDS: Potassium Chloride 10 MEQ Tab.ER PO SCH (09:04)
[2023-05-15] MEDS: Lactobacillus Rhamnosus GG (Probiotic) Cap PO SCH ×2 (09:05→20:01)
[2023-05-15] MEDS: guaiFENesin 600 MG Tab.ER PO SCH ×2 (09:05→20:02)
[2023-05-15] MEDS: Aspirin 81 MG Tab.EC PO SCH (09:05)
[2023-05-15] MEDS: DULoxetine 60 MG Cap PO SCH ×2 (09:07→20:02)
[2023-05-15] MEDS: Spironolactone 25 MG Tab PO SCH (09:07)
[2023-05-15] MEDS: traMADol 50 MG Tab PO SCH ×2 (09:08→20:03)
[2023-05-15] MEDS: Hydrochlorothiazide 12.5 MG Cap PO SCH (09:08)
[2023-05-15] MEDS: GLATIRAMER 20 MG SUBCUT SCH (09:10)
[2023-05-15] MEDS: Hypromellose 0.3% Ophth Soln 15 ML Bottle EYEBOTH SCH ×4 (09:10→20:03)
[2023-05-15] MEDS: Acetaminophen 325 MG Tab PO PRN (13:45)
[2023-05-15] MEDS: Zolpidem 5 MG Tab PO SCH (20:00)
[2023-05-15] MEDS: traZODone 50 MG Tab PO SCH (20:01)
[2023-05-15] MEDS: Donepezil 10 MG Tab PO SCH (20:02)
[2023-05-15] MEDS: Mineral Oil/Petrolatum Ophth Oint 3.5 GM Tube EYEBOTH SCH (20:05)
[2023-05-16] MEDS: Acetaminophen 325 MG Tab PO PRN (00:34)
[2023-05-16] MEDS: Albuterol/Ipratropium 3.0-0.5 MG/3 ML Neb Soln NEB SCH ×4 (00:37→18:25)
[2023-05-16] MEDS: Pantoprazole 40 MG Tab.CR PO SCH (06:05)
[2023-05-16] MEDS: Lactobacillus Rhamnosus GG (Probiotic) Cap PO SCH ×2 (08:49→20:39)
[2023-05-16] MEDS: traMADol 50 MG Tab PO SCH ×2 (08:50→20:39)
[2023-05-16] MEDS: guaiFENesin 600 MG Tab.ER PO SCH ×2 (08:50→20:37)
[2023-05-16] MEDS: Potassium Chloride 10 MEQ Tab.ER PO SCH (08:50)
[2023-05-16] MEDS: Pregabalin 50 MG Cap PO SCH ×3 (08:51→20:40)
[2023-05-16] MEDS: Spironolactone 25 MG Tab PO SCH (08:51)
[2023-05-16] MEDS: Hydrochlorothiazide 12.5 MG Cap PO SCH (08:51)
[2023-05-16] MEDS: Aspirin 81 MG Tab.EC PO SCH (08:51)
[2023-05-16] MEDS: DULoxetine 60 MG Cap PO SCH ×2 (08:51→20:38)
[2023-05-16] MEDS: Hypromellose 0.3% Ophth Soln 15 ML Bottle EYEBOTH SCH ×4 (08:52→20:40)
[2023-05-16] MEDS: GLATIRAMER 20 MG SUBCUT SCH (08:57)
[2023-05-16] MEDS: Menthol/Zinc Oxide Ointment 3.5 GM Tube TOP PRN (09:10)
[2023-05-16] MEDS: Zolpidem 5 MG Tab PO SCH (20:37)
[2023-05-16] MEDS: traZODone 50 MG Tab PO SCH (20:38)
[2023-05-16] MEDS: Donepezil 10 MG Tab PO SCH (20:39)
[2023-05-16] MEDS: Mineral Oil/Petrolatum Ophth Oint 3.5 GM Tube EYEBOTH SCH (20:40)
[2023-05-17] MEDS: Albuterol/Ipratropium 3.0-0.5 MG/3 ML Neb Soln NEB SCH ×4 (00:38→18:05)
[2023-05-17] MEDS: Acetaminophen 325 MG Tab PO PRN ×3 (01:40→20:02)
[2023-05-17] MEDS: Pantoprazole 40 MG Tab.CR PO SCH (06:13)
[2023-05-17 07:14] LABS: CALCIUM 8.5 mg/dL (8.5-10.1); EST CRCL DRUG DOSING (CG) 37.72 mL/min; POTASSIUM,K 3.2 mmol/L (3.5-5.1)
[2023-05-17 07:15] LABS: ANION GAP 15.2 mmol/L (5-15)
[2023-05-17 08:32] LABS: HEMATOCRIT 36.9 % (33.0-47.0); MEAN CORPUSCULAR HEMOGLOBIN 29.3 pg (26.0-32.0); MEAN CORPUSCULAR HGB CONC 35.2 g/dL (32.0-36.0); MEAN CORPUSCULAR VOLUME 83.3 fL (78.0-93.0); RED BLOOD CELL COUNT 4.43 x10^6/uL (4.00-5.50)
[2023-05-17 08:33] LABS: BASOPHILS ABSOLUTE AUTO 0.1 x10^3/uL (0.0-0.2); BASOPHILS PERCENT AUTO 0.6 % (0.2-1.2); EOSINOPHILS ABSOLUTE AUTO 0.4 x10^3/uL (0.0-0.5); EOSINOPHILS PERCENT AUTO 3.9 % (0.0-4.0); LYMPHOCYTES ABSOLUTE AUTO 1.7 x10^3/uL (1.0-4.8); LYMPHOCYTES PERCENT AUTO 16.6 % (25.0-50.0); MONOCYTES ABSOLUTE AUTO 1.2 x10^3/uL (0.0-0.8); MONOCYTES PERCENT AUTO 11.2 % (2.0-11.0); NEUTROPHILS ABSOLUTE AUTO 6.9 x10^3/uL (1.8-7.7); NEUTROPHILS PERCENT AUTO 67.7 % (50.0-80.0); PLATELET COUNT,PLT 387 x10^3/uL (130-400)
[2023-05-17 08:34] LABS: WHITE BLOOD CELL COUNT,WBC 10.2 x10^3/uL (4.0-10.0)
[2023-05-17] MEDS: guaiFENesin 600 MG Tab.ER PO SCH ×2 (09:32→20:00)
[2023-05-17] MEDS: Lactobacillus Rhamnosus GG (Probiotic) Cap PO SCH ×2 (09:33→20:02)
[2023-05-17] MEDS: Pregabalin 50 MG Cap PO SCH ×3 (09:33→20:00)
[2023-05-17] MEDS: Potassium Chloride 10 MEQ Tab.ER PO SCH (09:33)
[2023-05-17] MEDS: Hydrochlorothiazide 12.5 MG Cap PO SCH (09:33)
[2023-05-17] MEDS: DULoxetine 60 MG Cap PO SCH ×2 (09:33→20:02)
[2023-05-17] MEDS: traMADol 50 MG Tab PO SCH ×2 (09:33→20:01)
[2023-05-17] MEDS: Spironolactone 25 MG Tab PO SCH (09:34)
[2023-05-17] MEDS: Aspirin 81 MG Tab.EC PO SCH (09:34)
[2023-05-17] MEDS: Hypromellose 0.3% Ophth Soln 15 ML Bottle EYEBOTH SCH ×4 (09:34→20:03)
[2023-05-17] MEDS: GLATIRAMER 20 MG SUBCUT SCH (09:35)
[2023-05-17] MEDS: Zolpidem 5 MG Tab PO SCH (20:00)
[2023-05-17] MEDS: Donepezil 10 MG Tab PO SCH (20:02)
[2023-05-17] MEDS: Mineral Oil/Petrolatum Ophth Oint 3.5 GM Tube EYEBOTH SCH (20:03)
[2023-05-17] MEDS: traZODone 50 MG Tab PO SCH (20:03)
[2023-05-18] MEDS: Acetaminophen 325 MG Tab PO PRN ×3 (00:13→21:11)
[2023-05-18] MEDS: Albuterol/Ipratropium 3.0-0.5 MG/3 ML Neb Soln NEB SCH ×4 (00:14→18:06)
[2023-05-18] MEDS: Pantoprazole 40 MG Tab.CR PO SCH (06:11)
[2023-05-18] MEDS: GLATIRAMER 20 MG SUBCUT SCH (08:26)
[2023-05-18] MEDS: Spironolactone 25 MG Tab PO SCH (08:27)
[2023-05-18] MEDS: Pregabalin 50 MG Cap PO SCH ×3 (08:29→20:22)
[2023-05-18] MEDS: guaiFENesin 600 MG Tab.ER PO SCH ×2 (08:30→20:19)
[2023-05-18] MEDS: Hydrochlorothiazide 12.5 MG Cap PO SCH (08:30)
[2023-05-18] MEDS: traMADol 50 MG Tab PO SCH ×2 (08:31→20:22)
[2023-05-18] MEDS: Lactobacillus Rhamnosus GG (Probiotic) Cap PO SCH ×2 (08:31→20:21)
[2023-05-18] MEDS: Potassium Chloride 10 MEQ Tab.ER PO SCH ×2 (08:32→20:23)
[2023-05-18] MEDS: Aspirin 81 MG Tab.EC PO SCH (08:33)
[2023-05-18] MEDS: Hypromellose 0.3% Ophth Soln 15 ML Bottle EYEBOTH SCH ×4 (08:33→20:16)
[2023-05-18] MEDS: DULoxetine 60 MG Cap PO SCH ×2 (08:33→20:23)
[2023-05-18] MEDS: Mineral Oil/Petrolatum Ophth Oint 3.5 GM Tube EYEBOTH SCH (20:16)
[2023-05-18] MEDS: Zolpidem 5 MG Tab PO SCH (20:17)
[2023-05-18] MEDS: traZODone 50 MG Tab PO SCH (20:21)
[2023-05-18] MEDS: Donepezil 10 MG Tab PO SCH (20:23)
[2023-05-18] MEDS ORDERED: Psyllium Husk Powder Sugar Free 5.85 GM Packet PO SCH (21:00)
[2023-05-19] MEDS: Acetaminophen 325 MG Tab PO PRN (01:12)
[2023-05-19] MEDS: Albuterol/Ipratropium 3.0-0.5 MG/3 ML Neb Soln NEB SCH ×2 (01:13→06:40)
[2023-05-19] MEDS: Pantoprazole 40 MG Tab.CR PO SCH (06:40)
[2023-05-19] MEDS: Aspirin 81 MG Tab.EC PO SCH (08:41)
[2023-05-19] MEDS: Potassium Chloride 10 MEQ Tab.ER PO SCH (08:41)
[2023-05-19] MEDS: DULoxetine 60 MG Cap PO SCH (08:41)
[2023-05-19] MEDS: traMADol 50 MG Tab PO SCH (08:41)
[2023-05-19] MEDS: guaiFENesin 600 MG Tab.ER PO SCH (08:42)
[2023-05-19] MEDS: Pregabalin 50 MG Cap PO SCH (08:42)
[2023-05-19] MEDS: Lactobacillus Rhamnosus GG (Probiotic) Cap PO SCH (08:42)
[2023-05-19] MEDS: Spironolactone 25 MG Tab PO SCH (08:42)
[2023-05-19] MEDS: Hypromellose 0.3% Ophth Soln 15 ML Bottle EYEBOTH SCH (08:44)
[2023-05-19] MEDS: GLATIRAMER 20 MG SUBCUT SCH (08:48)
[2023-05-19 12:46] VITALS: BP 125/62; PULSE 71
== END 2023-05-19 12:00 | disposition home health service (06) | DRG 947 ==
LOC: VM.MS 10:16
PROVIDERS: ADMIT Internal Medicine; ATTEND Internal Medicine
DX: R53.1 Weakness (principal); J18.9 Pneumonia, unspecified organism; J44.1 Chronic obstructive pulmonary disease with (acute) exacerbation; E87.1 Hypo-osmolality and hyponatremia; I10 Essential (primary) hypertension; R33.9 Retention of urine, unspecified; G31.84 Mild cognitive impairment of uncertain or unknown etiology; G35 Multiple sclerosis; Z66 Do not resuscitate; E87.6 Hypokalemia; E83.42 Hypomagnesemia; G89.29 Other chronic pain; F32.9 Major depressive disorder, single episode, unspecified; G62.9 Polyneuropathy, unspecified; E86.0 Dehydration; R11.10 Vomiting, unspecified; N31.9 Neuromuscular dysfunction of bladder, unspecified; G47.00 Insomnia, unspecified; Z87.81 Personal history of (healed) traumatic fracture; Z90.49 Acquired absence of other specified parts of digestive tract; Z98.890 Other specified postprocedural states; Z90.12 Acquired absence of left breast and nipple; Z98.51 Tubal ligation status; Z97.8 Presence of other specified devices
CPT/HCPCS: 36415; 80048; 80053; 83735; 83880; 85025; 94640; 94668; 94760; 95851-GO; 97110-GP; 97530-GO; 97530-GP; 97535-GO; A9270-GY; J7613-GY; J7620-GY

== ENCOUNTER 2023-05-24 16:00 | Inpatient (IN) | payer MEDICARE, MEDICAID ==
[2023-05-24] MEDS ORDERED: Ondansetron 4 MG Tab.DIS PO ONE (16:11)
[2023-05-24 16:35] LABS: HEMATOCRIT 43.9 % (33.0-47.0); HEMOGLOBIN 14.7 g/dL (12.0-16.0); MEAN CORPUSCULAR HEMOGLOBIN 28.2 pg (26.0-32.0); MEAN CORPUSCULAR HGB CONC 33.5 g/dL (32.0-36.0); MEAN CORPUSCULAR VOLUME 84.3 fL (78.0-93.0); PLATELET COUNT,PLT 248 x10^3/uL (130-400); RED BLOOD CELL COUNT 5.21 x10^6/uL (4.00-5.50); WHITE BLOOD CELL COUNT,WBC 11.8 x10^3/uL (4.0-10.0)
[2023-05-24 16:42] LABS: ANISOCYTOSIS 1+ SLIGHT; BAND PERCENT MAN 1 % (0-6); EOSINOPHILS ABSOLUTE MAN 0.4 x10^3/uL (0.0-0.5); EOSINOPHILS PERCENT MAN 3 % (0-4); HYPERSEGMENTED NEUTROPHILS FEW; LYMPHOCYTES % ATYPICAL MANUAL 1 % (0); LYMPHOCYTES ABSOLUTE MAN 1.1 x10^3/uL (1.0-4.8); LYMPHOCYTES PERCENT MAN 8 % (25-50); MONOCYTES ABSOLUTE MAN 0.7 x10^3/uL (0.0-0.8); MONOCYTES PERCENT MAN 6 % (2-11); NEUTROPHILS ABSOLUTE MAN 9.7 x10^3/uL (1.8-7.7); PLATELET COUNT ESTIMATE ADEQUATE; SEG NEUTROPHILS PERCENT MAN 81 % (50-80)
[2023-05-24 16:48] LABS: A/G RATIO 0.72; ALANINE AMINOTRANSFERASE,ALT 16 U/L (14-59); ALBUMIN 2.8 g/dL (3.4-5.0); ALKALINE PHOSPHATASE 123 U/L (46-116); ASPARTATE AMNIOTRANSFERASE,AST 28 U/L (15-37); BILIRUBIN TOTAL 0.5 mg/dL (0.2-1.0); BLOOD UREA NITROGEN,BUN 5 mg/dL (7-18); CALCIUM 9.6 mg/dL (8.5-10.1); CARBON DIOXIDE,CO2 25 mmol/L (21-32); CHLORIDE,CL 104 mmol/L (98-107); GLUCOSE RANDOM 108 mg/dL (70-99); MAGNESIUM 1.8 mg/dL (1.8-2.4); PROTEIN TOTAL,TP 6.7 g/dL (6.4-8.2); SODIUM,NA 141 mmol/L (136-145)
[2023-05-24 16:49] LABS: ESTIMATED GFR 57 mL/min (>=60)
[2023-05-24 16:50] LABS: LACTIC ACID 1.2 mmol/L (0.4-2.0)
[2023-05-24] MEDS ORDERED: Sodium Chloride 0.9% 500 ML IV ONE (17:55)
[2023-05-24 18:43] LABS: APPEARANCE,URINE TURBID (CLEAR); BILIRUBIN,URINE NEGATIVE (NEGATIVE); COLOR,URINE YELLOW (YELLOW); GLUCOSE,URINE NEGATIVE (NEGATIVE); KETONES,URINE 40 mg/dL (NEGATIVE); LEUKOCYTE ESTERASE,URINE SMALL (NEGATIVE); NITRITE,URINE POSITIVE (NEGATIVE); OCCULT BLOOD,URINE MODERATE (NEGATIVE); PH,URINE 5.5 (5.0-8.0); PROTEIN,URINE 100 mg/dL (NEGATIVE)
[2023-05-24 18:46] LABS: AMORPHOUS SEDIMENT,URINE OCCASIONAL; BACTERIA,URINE MODERATE /HPF (NOT SEEN); MUCUS,URINE MODERATE /LPF (NOT SEEN); RBC,URINE 30-40 /HPF (NOT SEEN); SQUAMOUS EPITHELIAL CELLS,UR FEW /HPF (NOT SEEN); WBC,URINE 40-50 /HPF (NOT SEEN)
[2023-05-24 18:47] LABS: HYALINE CASTS,URINE OCCASIONAL; YEAST BUDDING,URINE FEW /HPF (NONE - FEW)
[2023-05-24] MEDS ORDERED: cefTRIAXone 1 GM Vial IVPUSH ONE (18:47)
[2023-05-24] MEDS ORDERED: traMADol 50 MG Tab PO ONE (19:08)
[2023-05-24] MEDS: Ondansetron 4 MG/2 ML SDV IV PRN (19:46)
[2023-05-24] MEDS ORDERED: guaiFENesin 600 MG Tab.ER PO PRN (20:43)
[2023-05-24] MEDS ORDERED: Dicyclomine 10 MG Cap PO PRN (20:43)
[2023-05-24] MEDS ORDERED: Ondansetron 4 MG Tab.DIS PO PRN (20:43)
[2023-05-24] MEDS ORDERED: Menthol/Zinc Oxide Ointment 3.5 GM Tube TOP PRN (20:43)
[2023-05-24] MEDS ORDERED: Sennosides/Docusate Sodium 50-8.6 MG Tab PO PRN (20:43)
[2023-05-24] MEDS ORDERED: Cholestyramine/Sucrose Powder 4 GM Packet PO PRN (20:43)
[2023-05-24] MEDS ORDERED: Albuterol HFA 18 Gm Inhaler INH PRN (20:43)
[2023-05-24] MEDS ORDERED: Nystatin Crm 30 GM Tube TOP PRN (20:43)
[2023-05-24] MEDS ORDERED: Pregabalin 50 MG Cap PO PRN (20:43)
[2023-05-24] MEDS: Albuterol/Ipratropium 3.0-0.5 MG/3 ML Neb Soln NEB PRN (21:53)
[2023-05-24] MEDS: Hypromellose 0.3% Ophth Soln 15 ML Bottle EYEBOTH SCH (21:55)
[2023-05-24] MEDS: Zolpidem 5 MG Tab PO SCH (21:56)
[2023-05-24] MEDS: Donepezil 10 MG Tab PO SCH (21:57)
[2023-05-24] MEDS: Calcium Carbonate/Vitamin D3 1250 MG-5 MCG Tab PO SCH (21:57)
[2023-05-24] MEDS: Pregabalin 50 MG Cap PO SCH (21:57)
[2023-05-24] MEDS: DULoxetine 60 MG Cap PO SCH (21:57)
[2023-05-24] MEDS: traMADol 50 MG Tab PO SCH (21:58)
[2023-05-24] MEDS: Albuterol/Ipratropium 3.0-0.5 MG/3 ML Neb Soln NEB SCH (23:25)
[2023-05-25] MEDS: Ondansetron 4 MG/2 ML SDV IV PRN (00:44)
[2023-05-25] MEDS: Acetaminophen 325 MG Tab PO PRN ×2 (01:27→20:50)
[2023-05-25] MEDS: traZODone 50 MG Tab PO PRN ×2 (01:27→20:51)
[2023-05-25] MEDS ORDERED: Prochlorperazine 10 MG/2 ML SDV IV PRN ×2 (01:47→01:51)
[2023-05-25] MEDS: Albuterol/Ipratropium 3.0-0.5 MG/3 ML Neb Soln NEB SCH ×6 (03:10→23:14)
[2023-05-25 07:09] LABS: BASOPHILS ABSOLUTE AUTO 0.1 x10^3/uL (0.0-0.2); BASOPHILS PERCENT AUTO 0.4 % (0.2-1.2); EOSINOPHILS ABSOLUTE AUTO 0.1 x10^3/uL (0.0-0.5); EOSINOPHILS PERCENT AUTO 0.4 % (0.0-4.0); HEMATOCRIT 34.7 % (33.0-47.0); HEMOGLOBIN 11.9 g/dL (12.0-16.0); IMMATURE GRAN ABSOLUTE AUTO 0.03 x10^3/uL (0.00-0.07); LYMPHOCYTES ABSOLUTE AUTO 1.4 x10^3/uL (1.0-4.8); LYMPHOCYTES PERCENT AUTO 8.1 % (25.0-50.0); MEAN CORPUSCULAR HEMOGLOBIN 28.4 pg (26.0-32.0); MEAN CORPUSCULAR HGB CONC 34.3 g/dL (32.0-36.0); MEAN CORPUSCULAR VOLUME 82.8 fL (78.0-93.0); MONOCYTES ABSOLUTE AUTO 0.8 x10^3/uL (0.0-0.8); MONOCYTES PERCENT AUTO 4.6 % (2.0-11.0); NEUTROPHILS ABSOLUTE AUTO 15.2 x10^3/uL (1.8-7.7); NEUTROPHILS PERCENT AUTO 86.3 % (50.0-80.0); RED BLOOD CELL COUNT 4.19 x10^6/uL (4.00-5.50); WHITE BLOOD CELL COUNT,WBC 17.6 x10^3/uL (4.0-10.0)
[2023-05-25 07:23] LABS: CALCIUM 8.4 mg/dL (8.5-10.1); EST CRCL DRUG DOSING (CG) 37.73 mL/min; POTASSIUM,K 3.2 mmol/L (3.5-5.1)
[2023-05-25 07:24] LABS: PLATELET COUNT,PLT 262 x10^3/uL (130-400)
[2023-05-25 07:25] LABS: ANION GAP 13.2 mmol/L (5-15)
[2023-05-25] MEDS ORDERED: Potassium Chloride 10 MEQ Tab.ER PO ONE (08:18)
[2023-05-25] MEDS: Hypromellose 0.3% Ophth Soln 15 ML Bottle EYEBOTH SCH ×4 (09:06→20:55)
[2023-05-25] MEDS: traMADol 50 MG Tab PO SCH ×2 (09:07→20:51)
[2023-05-25] MEDS: Cholecalciferol (Vitamin D3) 25 MCG Tab PO SCH (09:07)
[2023-05-25] MEDS: Spironolactone 25 MG Tab PO SCH (09:08)
[2023-05-25] MEDS: Aspirin 81 MG Tab.EC PO SCH (09:08)
[2023-05-25] MEDS: Folic Acid 0.4 MG Tab PO SCH (09:08)
[2023-05-25] MEDS: Lactobacillus Rhamnosus GG (Probiotic) Cap PO SCH (09:08)
[2023-05-25] MEDS: DULoxetine 60 MG Cap PO SCH ×2 (09:08→20:49)
[2023-05-25] MEDS: Calcium Carbonate/Vitamin D3 1250 MG-5 MCG Tab PO SCH ×2 (09:09→20:49)
[2023-05-25] MEDS: Pregabalin 50 MG Cap PO SCH ×3 (09:09→20:54)
[2023-05-25] MEDS: cefTRIAXone 1 GM Vial IVPUSH SCH (09:12)
[2023-05-25] MEDS: D-Mannose 500 MG Cap PO SCH (09:26)
[2023-05-25] MEDS: GLATIRAMER 20 MG/ML SUBCUT SCH (09:27)
[2023-05-25] MEDS: Enoxaparin 40 MG/0.4 ML Syringe SUBCUT SCH (11:17)
[2023-05-25] MEDS: Sennosides/Docusate Sodium 50-8.6 MG Tab PO SCH (14:25)
[2023-05-25] MEDS: Donepezil 10 MG Tab PO SCH (20:49)
[2023-05-25] MEDS: Mineral Oil/Petrolatum Ophth Oint 3.5 GM Tube EYEBOTH SCH (20:49)
[2023-05-25] MEDS: Zolpidem 5 MG Tab PO SCH (20:50)
[2023-05-26] MEDS: Albuterol/Ipratropium 3.0-0.5 MG/3 ML Neb Soln NEB SCH ×5 (03:26→18:23)
[2023-05-26] MEDS: Pregabalin 50 MG Cap PO SCH ×3 (06:37→20:44)
[2023-05-26] MEDS: Hypromellose 0.3% Ophth Soln 15 ML Bottle EYEBOTH SCH ×4 (06:37→20:38)
[2023-05-26 06:53] LABS: BASOPHILS ABSOLUTE AUTO 0.1 x10^3/uL (0.0-0.2); BASOPHILS PERCENT AUTO 0.4 % (0.2-1.2); EOSINOPHILS ABSOLUTE AUTO 0.8 x10^3/uL (0.0-0.5); EOSINOPHILS PERCENT AUTO 5.1 % (0.0-4.0); HEMOGLOBIN 11.5 g/dL (12.0-16.0); IMMATURE GRAN ABSOLUTE AUTO 0.01 x10^3/uL (0.00-0.07); LYMPHOCYTES ABSOLUTE AUTO 2.3 x10^3/uL (1.0-4.8); LYMPHOCYTES PERCENT AUTO 14.6 % (25.0-50.0); MEAN CORPUSCULAR HEMOGLOBIN 28.3 pg (26.0-32.0); MEAN CORPUSCULAR HGB CONC 33.8 g/dL (32.0-36.0); MEAN CORPUSCULAR VOLUME 83.5 fL (78.0-93.0); MONOCYTES ABSOLUTE AUTO 0.9 x10^3/uL (0.0-0.8); MONOCYTES PERCENT AUTO 5.5 % (2.0-11.0); NEUTROPHILS ABSOLUTE AUTO 11.8 x10^3/uL (1.8-7.7); NEUTROPHILS PERCENT AUTO 74.3 % (50.0-80.0); PLATELET COUNT,PLT 220 x10^3/uL (130-400); RED BLOOD CELL COUNT 4.07 x10^6/uL (4.00-5.50); WHITE BLOOD CELL COUNT,WBC 15.9 x10^3/uL (4.0-10.0)
[2023-05-26 07:11] LABS: CALCIUM 8.5 mg/dL (8.5-10.1); CREATININE 1.2 mg/dL (0.55-1.02); EST CRCL DRUG DOSING (CG) 31.45 mL/min; POTASSIUM,K 3.6 mmol/L (3.5-5.1)
[2023-05-26 07:12] LABS: ANION GAP 12.6 mmol/L (5-15)
[2023-05-26] MEDS: GLATIRAMER 20 MG/ML SUBCUT SCH (09:33)
[2023-05-26] MEDS: Magnesium Oxide 400 MG Tab PO SCH (09:35)
[2023-05-26] MEDS: Cholecalciferol (Vitamin D3) 25 MCG Tab PO SCH (09:35)
[2023-05-26] MEDS: DULoxetine 60 MG Cap PO SCH ×2 (09:35→20:38)
[2023-05-26] MEDS: Calcium Carbonate/Vitamin D3 1250 MG-5 MCG Tab PO SCH ×2 (09:35→20:36)
[2023-05-26] MEDS: traMADol 50 MG Tab PO SCH ×2 (09:35→20:34)
[2023-05-26] MEDS: Aspirin 81 MG Tab.EC PO SCH (09:35)
[2023-05-26] MEDS: guaiFENesin 600 MG Tab.ER PO SCH ×2 (09:35→20:37)
[2023-05-26] MEDS: Folic Acid 0.4 MG Tab PO SCH (09:36)
[2023-05-26] MEDS: Sennosides/Docusate Sodium 50-8.6 MG Tab PO SCH (09:36)
[2023-05-26] MEDS: Lactobacillus Rhamnosus GG (Probiotic) Cap PO SCH (09:36)
[2023-05-26] MEDS: D-Mannose 500 MG Cap PO SCH (09:37)
[2023-05-26] MEDS: cefTRIAXone 1 GM Vial IVPUSH SCH (09:39)
[2023-05-26] MEDS: Enoxaparin 40 MG/0.4 ML Syringe SUBCUT SCH (11:25)
[2023-05-26] MEDS: Donepezil 10 MG Tab PO SCH (20:34)
[2023-05-26] MEDS: Acetaminophen 325 MG Tab PO PRN (20:35)
[2023-05-26] MEDS: Zolpidem 5 MG Tab PO SCH (20:36)
[2023-05-26] MEDS: traZODone 50 MG Tab PO SCH (20:37)
[2023-05-26] MEDS: Mineral Oil/Petrolatum Ophth Oint 3.5 GM Tube EYEBOTH SCH (20:38)
[2023-05-27] MEDS: Albuterol/Ipratropium 3.0-0.5 MG/3 ML Neb Soln NEB SCH ×6 (00:05→18:26)
[2023-05-27] MEDS: Levofloxacin 500 MG Tab PO SCH (06:31)
[2023-05-27] MEDS: Hypromellose 0.3% Ophth Soln 15 ML Bottle EYEBOTH SCH ×4 (06:32→20:19)
[2023-05-27] MEDS: Pregabalin 50 MG Cap PO SCH ×3 (06:32→20:22)
[2023-05-27 07:56] LABS: BASOPHILS ABSOLUTE AUTO 0.1 x10^3/uL (0.0-0.2); BASOPHILS PERCENT AUTO 0.7 % (0.2-1.2); EOSINOPHILS ABSOLUTE AUTO 0.8 x10^3/uL (0.0-0.5); EOSINOPHILS PERCENT AUTO 7.2 % (0.0-4.0); HEMATOCRIT 36.4 % (33.0-47.0); HEMOGLOBIN 12.4 g/dL (12.0-16.0); IMMATURE GRAN ABSOLUTE AUTO 0.02 x10^3/uL (0.00-0.07); LYMPHOCYTES ABSOLUTE AUTO 1.9 x10^3/uL (1.0-4.8); LYMPHOCYTES PERCENT AUTO 18.3 % (25.0-50.0); MEAN CORPUSCULAR HEMOGLOBIN 28.4 pg (26.0-32.0); MEAN CORPUSCULAR HGB CONC 34.1 g/dL (32.0-36.0); MEAN CORPUSCULAR VOLUME 83.3 fL (78.0-93.0); MONOCYTES ABSOLUTE AUTO 0.9 x10^3/uL (0.0-0.8); MONOCYTES PERCENT AUTO 8.9 % (2.0-11.0); NEUTROPHILS ABSOLUTE AUTO 6.7 x10^3/uL (1.8-7.7); NEUTROPHILS PERCENT AUTO 64.7 % (50.0-80.0); PLATELET COUNT,PLT 215 x10^3/uL (130-400); RED BLOOD CELL COUNT 4.37 x10^6/uL (4.00-5.50); WHITE BLOOD CELL COUNT,WBC 10.4 x10^3/uL (4.0-10.0)
[2023-05-27 08:25] LABS: A/G RATIO 0.7; ALBUMIN 2.3 g/dL (3.4-5.0); ANION GAP 11.7 mmol/L (5-15); BILIRUBIN TOTAL 0.3 mg/dL (0.2-1.0); CALCIUM 8.7 mg/dL (8.5-10.1); CREATININE 1.1 mg/dL (0.55-1.02); EST CRCL DRUG DOSING (CG) 34.29 mL/min; POTASSIUM,K 3.7 mmol/L (3.5-5.1); PROTEIN TOTAL,TP 5.6 g/dL (6.4-8.2)
[2023-05-27] MEDS: Aspirin 81 MG Tab.EC PO SCH (08:45)
[2023-05-27] MEDS: Lactobacillus Rhamnosus GG (Probiotic) Cap PO SCH (08:45)
[2023-05-27] MEDS: traMADol 50 MG Tab PO SCH ×2 (08:46→20:20)
[2023-05-27] MEDS: DULoxetine 60 MG Cap PO SCH ×2 (08:46→20:21)
[2023-05-27] MEDS: Folic Acid 0.4 MG Tab PO SCH (08:46)
[2023-05-27] MEDS: Cholecalciferol (Vitamin D3) 25 MCG Tab PO SCH (08:46)
[2023-05-27] MEDS: Magnesium Oxide 400 MG Tab PO SCH (08:46)
[2023-05-27] MEDS: Calcium Carbonate/Vitamin D3 1250 MG-5 MCG Tab PO SCH ×2 (08:46→20:21)
[2023-05-27] MEDS: guaiFENesin 600 MG Tab.ER PO SCH ×2 (08:46→20:22)
[2023-05-27] MEDS: Sennosides/Docusate Sodium 50-8.6 MG Tab PO SCH (08:47)
[2023-05-27] MEDS: D-Mannose 500 MG Cap PO SCH (08:48)
[2023-05-27] MEDS: Spironolactone 25 MG Tab PO SCH (08:51)
[2023-05-27] MEDS: GLATIRAMER 20 MG/ML SUBCUT SCH (08:51)
[2023-05-27] MEDS: Enoxaparin 40 MG/0.4 ML Syringe SUBCUT SCH (11:04)
[2023-05-27] MEDS: Mineral Oil/Petrolatum Ophth Oint 3.5 GM Tube EYEBOTH SCH (20:19)
[2023-05-27] MEDS: Zolpidem 5 MG Tab PO SCH (20:20)
[2023-05-27] MEDS: traZODone 50 MG Tab PO SCH (20:21)
[2023-05-27] MEDS: Donepezil 10 MG Tab PO SCH (20:21)
[2023-05-28] MEDS: Albuterol/Ipratropium 3.0-0.5 MG/3 ML Neb Soln NEB SCH ×7 (05:00→22:16)
[2023-05-28] MEDS: Levofloxacin 500 MG Tab PO SCH (06:15)
[2023-05-28] MEDS: Pregabalin 50 MG Cap PO SCH ×3 (06:16→20:25)
[2023-05-28] MEDS: Hypromellose 0.3% Ophth Soln 15 ML Bottle EYEBOTH SCH ×4 (06:16→20:22)
[2023-05-28 08:09] LABS: BASOPHILS PERCENT AUTO 0.5 % (0.2-1.2); EOSINOPHILS ABSOLUTE AUTO 0.4 x10^3/uL (0.0-0.5); EOSINOPHILS PERCENT AUTO 5.4 % (0.0-4.0); HEMATOCRIT 35.6 % (33.0-47.0); IMMATURE GRAN ABSOLUTE AUTO 0.02 x10^3/uL (0.00-0.07); LYMPHOCYTES ABSOLUTE AUTO 1.3 x10^3/uL (1.0-4.8); LYMPHOCYTES PERCENT AUTO 15.7 % (25.0-50.0); MEAN CORPUSCULAR HGB CONC 33.7 g/dL (32.0-36.0); MEAN CORPUSCULAR VOLUME 83.2 fL (78.0-93.0); MONOCYTES ABSOLUTE AUTO 0.6 x10^3/uL (0.0-0.8); NEUTROPHILS ABSOLUTE AUTO 5.8 x10^3/uL (1.8-7.7); NEUTROPHILS PERCENT AUTO 71.2 % (50.0-80.0); PLATELET COUNT,PLT 229 x10^3/uL (130-400); RED BLOOD CELL COUNT 4.28 x10^6/uL (4.00-5.50); WHITE BLOOD CELL COUNT,WBC 8.1 x10^3/uL (4.0-10.0)
[2023-05-28] MEDS: Aspirin 81 MG Tab.EC PO SCH (08:48)
[2023-05-28] MEDS: traMADol 50 MG Tab PO SCH ×2 (08:48→20:20)
[2023-05-28] MEDS: Lactobacillus Rhamnosus GG (Probiotic) Cap PO SCH (08:48)
[2023-05-28] MEDS: Folic Acid 0.4 MG Tab PO SCH (08:48)
[2023-05-28] MEDS: Calcium Carbonate/Vitamin D3 1250 MG-5 MCG Tab PO SCH ×2 (08:48→20:21)
[2023-05-28] MEDS: DULoxetine 60 MG Cap PO SCH ×2 (08:48→20:21)
[2023-05-28] MEDS: guaiFENesin 600 MG Tab.ER PO SCH ×2 (08:48→20:21)
[2023-05-28] MEDS: Magnesium Oxide 400 MG Tab PO SCH (08:48)
[2023-05-28] MEDS: Spironolactone 25 MG Tab PO SCH (08:48)
[2023-05-28] MEDS: Sennosides/Docusate Sodium 50-8.6 MG Tab PO SCH (08:49)
[2023-05-28] MEDS: Cholecalciferol (Vitamin D3) 25 MCG Tab PO SCH (08:49)
[2023-05-28] MEDS: GLATIRAMER 20 MG/ML SUBCUT SCH (08:50)
[2023-05-28] MEDS: D-Mannose 500 MG Cap PO SCH (08:51)
[2023-05-28 08:55] LABS: A/G RATIO 0.64; ALBUMIN 2.1 g/dL (3.4-5.0); BILIRUBIN TOTAL 0.2 mg/dL (0.2-1.0); CALCIUM 8.7 mg/dL (8.5-10.1); CREATININE 0.9 mg/dL (0.55-1.02); EST CRCL DRUG DOSING (CG) 41.91 mL/min; POTASSIUM,K 4.1 mmol/L (3.5-5.1); PROTEIN TOTAL,TP 5.4 g/dL (6.4-8.2)
[2023-05-28 08:56] LABS: ANION GAP 10.1 mmol/L (5-15)
[2023-05-28] MEDS: Enoxaparin 40 MG/0.4 ML Syringe SUBCUT SCH (11:51)
[2023-05-28] MEDS: Acetaminophen 325 MG Tab PO PRN (15:01)
[2023-05-28] MEDS: Zolpidem 5 MG Tab PO SCH (20:19)
[2023-05-28] MEDS: traZODone 50 MG Tab PO SCH (20:21)
[2023-05-28] MEDS: Donepezil 10 MG Tab PO SCH (20:22)
[2023-05-28] MEDS: Mineral Oil/Petrolatum Ophth Oint 3.5 GM Tube EYEBOTH SCH (20:22)
[2023-05-29] MEDS: Albuterol/Ipratropium 3.0-0.5 MG/3 ML Neb Soln NEB PRN (00:37)
[2023-05-29] MEDS: Albuterol/Ipratropium 3.0-0.5 MG/3 ML Neb Soln NEB SCH ×4 (02:06→14:51)
[2023-05-29] MEDS: Acetaminophen 325 MG Tab PO PRN (02:14)
[2023-05-29] MEDS: Pregabalin 50 MG Cap PO SCH ×2 (06:18→13:26)
[2023-05-29] MEDS: Levofloxacin 500 MG Tab PO SCH (06:18)
[2023-05-29] MEDS: Hypromellose 0.3% Ophth Soln 15 ML Bottle EYEBOTH SCH ×2 (06:20→13:24)
[2023-05-29 07:06] LABS: BASOPHILS ABSOLUTE AUTO 0.1 x10^3/uL (0.0-0.2); BASOPHILS PERCENT AUTO 0.5 % (0.2-1.2); EOSINOPHILS ABSOLUTE AUTO 0.8 x10^3/uL (0.0-0.5); EOSINOPHILS PERCENT AUTO 8.5 % (0.0-4.0); HEMOGLOBIN 11.9 g/dL (12.0-16.0); IMMATURE GRAN ABSOLUTE AUTO 0.04 x10^3/uL (0.00-0.07); LYMPHOCYTES ABSOLUTE AUTO 2.1 x10^3/uL (1.0-4.8); MEAN CORPUSCULAR HEMOGLOBIN 28.5 pg (26.0-32.0); MEAN CORPUSCULAR HGB CONC 33.1 g/dL (32.0-36.0); MEAN CORPUSCULAR VOLUME 86.1 fL (78.0-93.0); MONOCYTES ABSOLUTE AUTO 0.7 x10^3/uL (0.0-0.8); MONOCYTES PERCENT AUTO 7.8 % (2.0-11.0); NEUTROPHILS ABSOLUTE AUTO 5.5 x10^3/uL (1.8-7.7); NEUTROPHILS PERCENT AUTO 59.8 % (50.0-80.0); PLATELET COUNT,PLT 211 x10^3/uL (130-400); RED BLOOD CELL COUNT 4.18 x10^6/uL (4.00-5.50); WHITE BLOOD CELL COUNT,WBC 9.2 x10^3/uL (4.0-10.0)
[2023-05-29 07:26] LABS: A/G RATIO 0.68; ALBUMIN 2.1 g/dL (3.4-5.0); BILIRUBIN TOTAL 0.1 mg/dL (0.2-1.0); CALCIUM 8.7 mg/dL (8.5-10.1); EST CRCL DRUG DOSING (CG) 37.73 mL/min; POTASSIUM,K 3.7 mmol/L (3.5-5.1); PROTEIN TOTAL,TP 5.2 g/dL (6.4-8.2)
[2023-05-29 07:27] LABS: ANION GAP 9.7 mmol/L (5-15)
[2023-05-29] MEDS: Magnesium Oxide 400 MG Tab PO SCH (09:37)
[2023-05-29] MEDS: traMADol 50 MG Tab PO SCH (09:38)
[2023-05-29] MEDS: Folic Acid 0.4 MG Tab PO SCH (09:38)
[2023-05-29] MEDS: guaiFENesin 600 MG Tab.ER PO SCH (09:38)
[2023-05-29] MEDS: Cholecalciferol (Vitamin D3) 25 MCG Tab PO SCH (09:38)
[2023-05-29] MEDS: Calcium Carbonate/Vitamin D3 1250 MG-5 MCG Tab PO SCH (09:38)
[2023-05-29] MEDS: Aspirin 81 MG Tab.EC PO SCH (09:38)
[2023-05-29] MEDS: Spironolactone 25 MG Tab PO SCH (09:39)
[2023-05-29] MEDS: D-Mannose 500 MG Cap PO SCH (09:39)
[2023-05-29] MEDS: Sennosides/Docusate Sodium 50-8.6 MG Tab PO SCH (09:39)
[2023-05-29] MEDS: DULoxetine 60 MG Cap PO SCH (09:39)
[2023-05-29] MEDS: Lactobacillus Rhamnosus GG (Probiotic) Cap PO SCH (09:39)
[2023-05-29] MEDS: Enoxaparin 40 MG/0.4 ML Syringe SUBCUT SCH (13:25)
[2023-05-29 14:14] VITALS: BP 135/80; PULSE 88
== END 2023-05-29 15:07 | disposition swing bed (61) | DRG 690 ==
LOC: VM.ED 16:00 → VM.MS 18:55
PROVIDERS: ADMIT Family Medicine; ATTEND Internal Medicine
DX: N39.0 Urinary tract infection, site not specified (principal); G35 Multiple sclerosis; N31.9 Neuromuscular dysfunction of bladder, unspecified; K59.09 Other constipation; G60.9 Hereditary and idiopathic neuropathy, unspecified; Z96.649 Presence of unspecified artificial hip joint; Z96.619 Presence of unspecified artificial shoulder joint; F32.9 Major depressive disorder, single episode, unspecified; Z66 Do not resuscitate; I10 Essential (primary) hypertension; M25.559 Pain in unspecified hip; G89.29 Other chronic pain; E87.6 Hypokalemia; I95.9 Hypotension, unspecified; B96.20 Unspecified Escherichia coli [E. coli] as the cause of diseases classified elsewhere; G47.34 Idiopathic sleep related nonobstructive alveolar hypoventilation; J44.9 Chronic obstructive pulmonary disease, unspecified; E83.42 Hypomagnesemia; F01.B0 Vascular dementia, moderate, without behavioral disturbance, psychotic disturbance, mood disturbance, and anxiety; B96.1 Klebsiella pneumoniae [K. pneumoniae] as the cause of diseases classified elsewhere; F51.01 Primary insomnia; Z97.8 Presence of other specified devices; Z88.2 Allergy status to sulfonamides; Z88.8 Allergy status to other drugs, medicaments and biological substances; F17.210 Nicotine dependence, cigarettes, uncomplicated; Z99.81 Dependence on supplemental oxygen; Z87.81 Personal history of (healed) traumatic fracture; Z85.3 Personal history of malignant neoplasm of breast; Z90.49 Acquired absence of other specified parts of digestive tract; Z98.84 Bariatric surgery status; Z98.51 Tubal ligation status; Z98.890 Other specified postprocedural states; Z90.10 Acquired absence of unspecified breast and nipple; Z87.01 Personal history of pneumonia (recurrent); Z79.82 Long term (current) use of aspirin; Z96.0 Presence of urogenital implants; Z79.899 Other long term (current) drug therapy
CPT/HCPCS: 36415; 71045; 74019; 80053; 81001; 83605; 83735; 85025; 87086; 87088 ×3; 87186 ×3; 96360; 99284; 99285; A9270; J7030; 80048; 87040; 94640; 94760; 97162-GP; 97166-GO; 97535-GO; C1758; J0696; J0780; J1650; J2405; J7620-GY

== ENCOUNTER 2023-05-29 14:09 | Inpatient (IN) | payer MEDICARE, MEDICAID ==
[2023-05-29] MEDS ORDERED: Dicyclomine 10 MG Cap PO PRN (14:52)
[2023-05-29] MEDS ORDERED: Nystatin Crm 30 GM Tube TOP PRN (14:52)
[2023-05-29] MEDS ORDERED: Albuterol/Ipratropium 3.0-0.5 MG/3 ML Neb Soln NEB PRN (14:52)
[2023-05-29] MEDS ORDERED: Albuterol HFA 18 Gm Inhaler INH PRN (14:52)
[2023-05-29] MEDS ORDERED: Cholestyramine/Sucrose Powder 4 GM Packet PO PRN (14:52)
[2023-05-29] MEDS ORDERED: Ondansetron 4 MG Tab.DIS PO PRN (14:52)
[2023-05-29] MEDS ORDERED: Pregabalin 50 MG Cap PO PRN (14:52)
[2023-05-29] MEDS ORDERED: Menthol/Zinc Oxide Ointment 3.5 GM Tube TOP PRN (14:52)
[2023-05-29] MEDS: Hypromellose 0.3% Ophth Soln 15 ML Bottle EYEBOTH SCH ×2 (16:03→20:23)
[2023-05-29] MEDS: Albuterol/Ipratropium 3.0-0.5 MG/3 ML Neb Soln NEB SCH ×3 (16:03→23:18)
[2023-05-29] MEDS: Zolpidem 5 MG Tab PO SCH (20:17)
[2023-05-29] MEDS: traMADol 50 MG Tab PO SCH (20:19)
[2023-05-29] MEDS: Acetaminophen 325 MG Tab PO PRN (20:21)
[2023-05-29] MEDS: guaiFENesin 600 MG Tab.ER PO SCH (20:22)
[2023-05-29] MEDS: traZODone 50 MG Tab PO SCH (20:22)
[2023-05-29] MEDS: Calcium Carbonate/Vitamin D3 1250 MG-5 MCG Tab PO SCH (20:22)
[2023-05-29] MEDS: Donepezil 10 MG Tab PO SCH (20:23)
[2023-05-29] MEDS: Mineral Oil/Petrolatum Ophth Oint 3.5 GM Tube EYEBOTH SCH (20:23)
[2023-05-29] MEDS: DULoxetine 60 MG Cap PO SCH (20:23)
[2023-05-29] MEDS: Pregabalin 50 MG Cap PO SCH (20:26)
[2023-05-30] MEDS: Albuterol/Ipratropium 3.0-0.5 MG/3 ML Neb Soln NEB SCH ×5 (04:00→20:15)
[2023-05-30] MEDS: Pregabalin 50 MG Cap PO SCH ×3 (06:16→20:13)
[2023-05-30] MEDS: Hypromellose 0.3% Ophth Soln 15 ML Bottle EYEBOTH SCH ×4 (06:16→20:14)
[2023-05-30] MEDS: Levofloxacin 500 MG Tab PO SCH (06:17)
[2023-05-30] MEDS: D-Mannose 500 MG Cap PO SCH (08:46)
[2023-05-30] MEDS: Calcium Carbonate/Vitamin D3 1250 MG-5 MCG Tab PO SCH ×2 (08:47→20:13)
[2023-05-30] MEDS: Lactobacillus Rhamnosus GG (Probiotic) Cap PO SCH (08:48)
[2023-05-30] MEDS: DULoxetine 60 MG Cap PO SCH ×2 (08:48→20:12)
[2023-05-30] MEDS: traMADol 50 MG Tab PO SCH ×2 (08:48→20:13)
[2023-05-30] MEDS: Aspirin 81 MG Tab.EC PO SCH (08:48)
[2023-05-30] MEDS: Spironolactone 25 MG Tab PO SCH (08:49)
[2023-05-30] MEDS: Cholecalciferol (Vitamin D3) 25 MCG Tab PO SCH (08:49)
[2023-05-30] MEDS: guaiFENesin 600 MG Tab.ER PO SCH ×2 (08:49→20:12)
[2023-05-30] MEDS: Magnesium Oxide 400 MG Tab PO SCH (08:49)
[2023-05-30] MEDS: Sennosides/Docusate Sodium 50-8.6 MG Tab PO SCH ×2 (08:50)
[2023-05-30] MEDS: Folic Acid 0.4 MG Tab PO SCH (08:51)
[2023-05-30] MEDS: GLATIRAMER 20 MG SUBCUT SCH (09:04)
[2023-05-30] MEDS: traZODone 50 MG Tab PO SCH (20:12)
[2023-05-30] MEDS: Zolpidem 5 MG Tab PO SCH (20:12)
[2023-05-30] MEDS: Donepezil 10 MG Tab PO SCH (20:14)
[2023-05-30] MEDS: Mineral Oil/Petrolatum Ophth Oint 3.5 GM Tube EYEBOTH SCH (20:15)
[2023-05-31] MEDS: Albuterol/Ipratropium 3.0-0.5 MG/3 ML Neb Soln NEB SCH ×4 (08:49→20:13)
[2023-05-31] MEDS: Levofloxacin 500 MG Tab PO SCH (08:49)
[2023-05-31] MEDS: Hypromellose 0.3% Ophth Soln 15 ML Bottle EYEBOTH SCH ×4 (08:49→20:13)
[2023-05-31] MEDS: Aspirin 81 MG Tab.EC PO SCH (08:50)
[2023-05-31] MEDS: Lactobacillus Rhamnosus GG (Probiotic) Cap PO SCH (08:50)
[2023-05-31] MEDS: Folic Acid 0.4 MG Tab PO SCH (08:51)
[2023-05-31] MEDS: Cholecalciferol (Vitamin D3) 25 MCG Tab PO SCH (08:51)
[2023-05-31] MEDS: DULoxetine 60 MG Cap PO SCH ×2 (08:52→20:11)
[2023-05-31] MEDS: Spironolactone 25 MG Tab PO SCH (08:53)
[2023-05-31] MEDS: Magnesium Oxide 400 MG Tab PO SCH (08:53)
[2023-05-31] MEDS: Sennosides/Docusate Sodium 50-8.6 MG Tab PO SCH (08:53)
[2023-05-31] MEDS: Calcium Carbonate/Vitamin D3 1250 MG-5 MCG Tab PO SCH ×2 (08:53→20:11)
[2023-05-31] MEDS: Pregabalin 50 MG Cap PO SCH ×3 (08:55→20:11)
[2023-05-31] MEDS: traMADol 50 MG Tab PO SCH ×2 (08:56→20:12)
[2023-05-31] MEDS: GLATIRAMER 20 MG SUBCUT SCH (08:57)
[2023-05-31] MEDS: guaiFENesin 600 MG Tab.ER PO SCH ×2 (08:57→20:11)
[2023-05-31] MEDS: D-Mannose 500 MG Cap PO SCH (08:59)
[2023-05-31] MEDS: Acetaminophen 325 MG Tab PO PRN (20:10)
[2023-05-31] MEDS: Donepezil 10 MG Tab PO SCH (20:10)
[2023-05-31] MEDS: traZODone 50 MG Tab PO SCH (20:12)
[2023-05-31] MEDS: Zolpidem 5 MG Tab PO SCH (20:12)
[2023-05-31] MEDS: Mineral Oil/Petrolatum Ophth Oint 3.5 GM Tube EYEBOTH SCH (20:13)
[2023-06-01] MEDS: Albuterol/Ipratropium 3.0-0.5 MG/3 ML Neb Soln NEB SCH ×2 (06:10→11:39)
[2023-06-01] MEDS: Levofloxacin 500 MG Tab PO SCH (06:10)
[2023-06-01] MEDS: Hypromellose 0.3% Ophth Soln 15 ML Bottle EYEBOTH SCH ×2 (06:11→11:37)
[2023-06-01] MEDS: Pregabalin 50 MG Cap PO SCH ×2 (06:11→11:38)
[2023-06-01] MEDS: Aspirin 81 MG Tab.EC PO SCH (08:44)
[2023-06-01] MEDS: Calcium Carbonate/Vitamin D3 1250 MG-5 MCG Tab PO SCH (08:44)
[2023-06-01] MEDS: GLATIRAMER 20 MG SUBCUT SCH (08:44)
[2023-06-01] MEDS: Lactobacillus Rhamnosus GG (Probiotic) Cap PO SCH (08:44)
[2023-06-01] MEDS: Spironolactone 25 MG Tab PO SCH (08:45)
[2023-06-01] MEDS: DULoxetine 60 MG Cap PO SCH (08:45)
[2023-06-01] MEDS: Sennosides/Docusate Sodium 50-8.6 MG Tab PO SCH (08:45)
[2023-06-01] MEDS: Folic Acid 0.4 MG Tab PO SCH (08:45)
[2023-06-01] MEDS: Magnesium Oxide 400 MG Tab PO SCH (08:45)
[2023-06-01] MEDS: Cholecalciferol (Vitamin D3) 25 MCG Tab PO SCH (08:45)
[2023-06-01] MEDS: guaiFENesin 600 MG Tab.ER PO SCH (08:45)
[2023-06-01] MEDS: traMADol 50 MG Tab PO SCH (08:45)
[2023-06-01] MEDS: D-Mannose 500 MG Cap PO SCH ×2 (08:48→10:15)
[2023-06-01 12:34] VITALS: BP 140/83; PULSE 90
== END 2023-06-01 13:35 | disposition home health service (06) | DRG 948 ==
LOC: VM.MS 15:08
PROVIDERS: ADMIT Internal Medicine; ATTEND Internal Medicine
DX: R53.1 Weakness (principal); N39.0 Urinary tract infection, site not specified; G35 Multiple sclerosis; J44.9 Chronic obstructive pulmonary disease, unspecified; I10 Essential (primary) hypertension; M25.559 Pain in unspecified hip; G89.29 Other chronic pain; F03.B0 Unspecified dementia, moderate, without behavioral disturbance, psychotic disturbance, mood disturbance, and anxiety; F32.9 Major depressive disorder, single episode, unspecified; F17.210 Nicotine dependence, cigarettes, uncomplicated; K59.09 Other constipation; B96.20 Unspecified Escherichia coli [E. coli] as the cause of diseases classified elsewhere; B96.1 Klebsiella pneumoniae [K. pneumoniae] as the cause of diseases classified elsewhere; G47.36 Sleep related hypoventilation in conditions classified elsewhere; G47.00 Insomnia, unspecified; Z97.8 Presence of other specified devices; Z98.84 Bariatric surgery status; Z87.01 Personal history of pneumonia (recurrent); Z88.8 Allergy status to other drugs, medicaments and biological substances; Z88.2 Allergy status to sulfonamides; Z79.899 Other long term (current) drug therapy; Z79.82 Long term (current) use of aspirin; Z87.81 Personal history of (healed) traumatic fracture; Z85.3 Personal history of malignant neoplasm of breast; Z90.49 Acquired absence of other specified parts of digestive tract; Z90.10 Acquired absence of unspecified breast and nipple; Z98.51 Tubal ligation status; Z96.649 Presence of unspecified artificial hip joint; Z96.619 Presence of unspecified artificial shoulder joint; Z98.890 Other specified postprocedural states
CPT/HCPCS: 94640; 94760; 97535-GO; A9270-GY; J7620-GY

== ENCOUNTER 2023-06-12 15:36 | Inpatient (IN) | payer MEDICARE, MEDICAID ==
[2023-06-12] MEDS ORDERED: fentaNYL 50 MCG/ML SDV IVPUSH ONE ×2 (16:09→20:04)
[2023-06-12] MEDS ORDERED: Naloxone 0.4 MG/ML SDV IVPUSH PRN (16:09)
[2023-06-12] MEDS ORDERED: Acetaminophen/HYDROcodone 325-5 MG Tab PO ONE (18:27)
[2023-06-12 18:29] LABS: HEMATOCRIT 34.6 % (33.0-47.0); HEMOGLOBIN 11.8 g/dL (12.0-16.0); MEAN CORPUSCULAR HEMOGLOBIN 28.5 pg (26.0-32.0); MEAN CORPUSCULAR HGB CONC 34.1 g/dL (32.0-36.0); MEAN CORPUSCULAR VOLUME 83.6 fL (78.0-93.0); PLATELET COUNT,PLT 363 x10^3/uL (130-400); RED BLOOD CELL COUNT 4.14 x10^6/uL (4.00-5.50)
[2023-06-12 18:31] LABS: WHITE BLOOD CELL COUNT,WBC 22.9 x10^3/uL (4.0-10.0)
[2023-06-12 18:40] LABS: LYMPHOCYTES ABSOLUTE MAN 0.7 x10^3/uL (1.0-4.8); LYMPHOCYTES PERCENT MAN 3 % (25-50); MONOCYTES ABSOLUTE MAN 1.8 x10^3/uL (0.0-0.8); MONOCYTES PERCENT MAN 8 % (2-11); NEUTROPHILS ABSOLUTE MAN 20.4 x10^3/uL (1.8-7.7); SEG NEUTROPHILS PERCENT MAN 89 % (50-80)
[2023-06-12 18:42] LABS: ANISOCYTOSIS 1+ SLIGHT; HYPERSEGMENTED NEUTROPHILS OCCASIONAL; PLATELET COUNT ESTIMATE ADEQUATE
[2023-06-12 18:47] LABS: A/G RATIO 0.75; ALANINE AMINOTRANSFERASE,ALT 16 U/L (14-59); ALBUMIN 2.4 g/dL (3.4-5.0); ALKALINE PHOSPHATASE 115 U/L (46-116); ANION GAP 9.3 mmol/L (5-15); ASPARTATE AMNIOTRANSFERASE,AST 19 U/L (15-37); BILIRUBIN TOTAL 0.5 mg/dL (0.2-1.0); BLOOD UREA NITROGEN,BUN 4 mg/dL (7-18); C-REACTIVE PROTEIN 1.67 mg/dL (<=0.30); CARBON DIOXIDE,CO2 30 mmol/L (21-32); CHLORIDE,CL 104 mmol/L (98-107); CREATININE 0.9 mg/dL (0.55-1.02); ESTIMATED GFR 65 mL/min (>=60); GLUCOSE RANDOM 101 mg/dL (70-99); POTASSIUM,K 4.3 mmol/L (3.5-5.1); PROTEIN TOTAL,TP 5.6 g/dL (6.4-8.2); SODIUM,NA 139 mmol/L (136-145)
[2023-06-12 19:28] LABS: BILIRUBIN,URINE NEGATIVE (NEGATIVE); COLOR,URINE LIGHT YELLOW (YELLOW); GLUCOSE,URINE NEGATIVE (NEGATIVE); KETONES,URINE NEGATIVE (NEGATIVE); LEUKOCYTE ESTERASE,URINE MODERATE (NEGATIVE); NITRITE,URINE NEGATIVE (NEGATIVE); OCCULT BLOOD,URINE TRACE-LYSED (NEGATIVE); PROTEIN,URINE NEGATIVE (NEGATIVE); UROBILINOGEN,URINE 0.2 EU/dL (0.2)
[2023-06-12 19:35] LABS: APPEARANCE,URINE CLOUDY (CLEAR); SQUAMOUS EPITHELIAL CELLS,UR FEW /HPF (NOT SEEN); WBC,URINE 40-50 /HPF (NOT SEEN)
[2023-06-12 19:36] LABS: BACTERIA,URINE FEW /HPF (NOT SEEN); MUCUS,URINE OCCASIONAL /LPF (NOT SEEN)
[2023-06-12] MEDS ORDERED: Cholestyramine/Sucrose Powder 4 GM Packet PO PRN (21:38)
[2023-06-12] MEDS ORDERED: Ondansetron 4 MG Tab.DIS PO PRN (21:38)
[2023-06-12] MEDS ORDERED: Acetaminophen 325 MG Tab PO PRN (21:38)
[2023-06-12] MEDS ORDERED: Menthol/Zinc Oxide Ointment 3.5 GM Tube TOP PRN (21:38)
[2023-06-12] MEDS ORDERED: Pregabalin 50 MG Cap PO PRN (21:38)
[2023-06-12] MEDS ORDERED: guaiFENesin 600 MG Tab.ER PO PRN (21:38)
[2023-06-12] MEDS ORDERED: Sennosides/Docusate Sodium 50-8.6 MG Tab PO PRN (21:38)
[2023-06-12] MEDS: HYDROmorphone 0.5 MG/0.5 ML Syringe IVPUSH PRN (22:38)
[2023-06-13] MEDS: Ciprofloxacin in D5W 200 MG in Premix Bag 1 BAG IV SCH ×4 (01:14→09:07)
[2023-06-13] MEDS: HYDROmorphone 0.5 MG/0.5 ML Syringe IVPUSH PRN ×3 (02:39→11:37)
[2023-06-13] MEDS: Albuterol/Ipratropium 3.0-0.5 MG/3 ML Neb Soln NEB SCH ×2 (07:07→12:32)
[2023-06-13 07:14] LABS: BASOPHILS ABSOLUTE AUTO 0.1 x10^3/uL (0.0-0.2); BASOPHILS PERCENT AUTO 0.4 % (0.2-1.2); EOSINOPHILS ABSOLUTE AUTO 0.5 x10^3/uL (0.0-0.5); EOSINOPHILS PERCENT AUTO 2.6 % (0.0-4.0); HEMOGLOBIN 10.9 g/dL (12.0-16.0); IMMATURE GRAN ABSOLUTE AUTO 0.03 x10^3/uL (0.00-0.07); LYMPHOCYTES ABSOLUTE AUTO 2.5 x10^3/uL (1.0-4.8); LYMPHOCYTES PERCENT AUTO 12.9 % (25.0-50.0); MEAN CORPUSCULAR HEMOGLOBIN 28.1 pg (26.0-32.0); MEAN CORPUSCULAR VOLUME 85.1 fL (78.0-93.0); MONOCYTES ABSOLUTE AUTO 1.3 x10^3/uL (0.0-0.8); MONOCYTES PERCENT AUTO 6.7 % (2.0-11.0); NEUTROPHILS ABSOLUTE AUTO 15.2 x10^3/uL (1.8-7.7); NEUTROPHILS PERCENT AUTO 77.2 % (50.0-80.0); PLATELET COUNT,PLT 353 x10^3/uL (130-400); RED BLOOD CELL COUNT 3.88 x10^6/uL (4.00-5.50)
[2023-06-13 07:26] LABS: WHITE BLOOD CELL COUNT,WBC 19.7 x10^3/uL (4.0-10.0)
[2023-06-13 07:30] LABS: CALCIUM 8.6 mg/dL (8.5-10.1); CREATININE 0.9 mg/dL (0.55-1.02); EST CRCL DRUG DOSING (CG) 43.77 mL/min; POTASSIUM,K 3.8 mmol/L (3.5-5.1)
[2023-06-13 07:31] LABS: ANION GAP 9.8 mmol/L (5-15)
[2023-06-13] MEDS ORDERED: Calcium Carbonate/Vitamin D3 1250 MG-5 MCG Tab PO SCH (08:00)
[2023-06-13] MEDS ORDERED: Cholecalciferol (Vitamin D3) 25 MCG Tab PO SCH (09:00)
[2023-06-13] MEDS ORDERED: Lactobacillus Rhamnosus GG (Probiotic) Cap PO SCH (09:00)
[2023-06-13] MEDS ORDERED: Aspirin 81 MG Tab.EC PO SCH (09:00)
[2023-06-13] MEDS ORDERED: D-Mannose 500 MG Cap PO SCH (09:00)
[2023-06-13] MEDS ORDERED: Folic Acid 0.4 MG Tab PO SCH (09:00)
[2023-06-13] MEDS ORDERED: Magnesium Oxide 400 MG Tab PO SCH (09:00)
[2023-06-13] MEDS ORDERED: DULoxetine 60 MG Cap PO SCH (09:00)
[2023-06-13] MEDS ORDERED: traMADol 50 MG Tab PO SCH (09:00)
[2023-06-13] MEDS ORDERED: Spironolactone 25 MG Tab PO SCH (09:00)
[2023-06-13] MEDS ORDERED: GLATIRAMER 20 MG/ML SUBCUT SCH ×2 (09:00)
[2023-06-13] MEDS: Pregabalin 50 MG Cap PO SCH ×2 (09:12→13:29)
[2023-06-13] MEDS: Hypromellose 0.3% Ophth Soln 15 ML Bottle EYEBOTH SCH ×2 (09:15→13:31)
[2023-06-13] MEDS: HYDROmorphone 0.5 MG/0.5 ML Syringe IVPUSH SCH ×2 (09:25→13:31)
[2023-06-13] MEDS ORDERED: Enoxaparin 40 MG/0.4 ML Syringe SUBCUT SCH (12:00)
[2023-06-13] MEDS ORDERED: Cyclobenzaprine 10 MG Tab PO PRN (12:02)
[2023-06-13 15:52] VITALS: BP 112/57; PULSE 71
[2023-06-13] MEDS ORDERED: HYDROmorphone 2 MG Tab PO ONE (16:20)
[2023-06-13] MEDS ORDERED: PETROLATUM WHITE EYEBOTH SCH (21:00)
[2023-06-13] MEDS ORDERED: traZODone 50 MG Tab PO SCH ×2 (21:00)
[2023-06-13] MEDS ORDERED: Donepezil 10 MG Tab PO SCH (21:00)
[2023-06-13] MEDS ORDERED: MINERAL OIL EYEBOTH SCH (21:00)
[2023-06-13] MEDS ORDERED: [UNRECOGNIZED DRUG - OTHER] EYEBOTH SCH (21:00)
== END 2023-06-13 16:35 | disposition short-term general hospital (02) | DRG 534 ==
LOC: VM.ED 15:36 → VM.MS 19:42
PROVIDERS: ADMIT Internal Medicine; ATTEND Internal Medicine
DX: S72.402A Unspecified fracture of lower end of left femur, initial encounter for closed fracture (principal); N39.0 Urinary tract infection, site not specified; F02.B3 Dementia in other diseases classified elsewhere, moderate, with mood disturbance; R29.6 Repeated falls; Z66 Do not resuscitate; G35 Multiple sclerosis; J44.9 Chronic obstructive pulmonary disease, unspecified; K59.09 Other constipation; I10 Essential (primary) hypertension; F32.A Depression, unspecified; G62.9 Polyneuropathy, unspecified; G47.00 Insomnia, unspecified; G89.29 Other chronic pain; B95.5 Unspecified streptococcus as the cause of diseases classified elsewhere; M81.0 Age-related osteoporosis without current pathological fracture; F43.21 Adjustment disorder with depressed mood; Z96.649 Presence of unspecified artificial hip joint; Z96.619 Presence of unspecified artificial shoulder joint; Z88.2 Allergy status to sulfonamides; Z88.8 Allergy status to other drugs, medicaments and biological substances; N31.9 Neuromuscular dysfunction of bladder, unspecified; F17.210 Nicotine dependence, cigarettes, uncomplicated; Z85.3 Personal history of malignant neoplasm of breast; Z90.49 Acquired absence of other specified parts of digestive tract; Z98.890 Other specified postprocedural states; Z98.51 Tubal ligation status; Z90.10 Acquired absence of unspecified breast and nipple; Z87.01 Personal history of pneumonia (recurrent); Z99.81 Dependence on supplemental oxygen; Z79.82 Long term (current) use of aspirin; Z79.899 Other long term (current) drug therapy; W05.0XXA Fall from non-moving wheelchair, initial encounter
CPT/HCPCS: 36415; 71045; 73610-LT; 73620-LT; 80048; 80053; 81001; 85025; 86140; 87086; 87088; 87186; 94640; 94760; 96374; 99284; 99285-25; A9270-GY; J0744; J1170; J1650; J3010; J7620-GY

== ENCOUNTER 2023-08-16 16:44 | Inpatient (IN) | payer MEDICARE, MEDICAID ==
[2023-08-16] MEDS ORDERED: Ondansetron 4 MG Tab.DIS PO PRN (17:29)
[2023-08-16] MEDS ORDERED: Sodium Chloride 0.9% 10 ML Syringe FLUSH PRN (17:29)
[2023-08-16] MEDS ORDERED: Ondansetron 4 MG/2 ML SDV IV PRN (17:29)
[2023-08-16] MEDS ORDERED: Acetaminophen 325 MG Tab PO ONE (17:37)
[2023-08-16] MEDS: Pantoprazole 40 MG Vial IVPUSH SCH (18:15)
[2023-08-16 18:52] LABS: PROTHROMBIN TIME 10.5 SEC (9.5-12.2)
[2023-08-16] MEDS ORDERED: Pregabalin 50 MG Cap PO PRN (19:14)
[2023-08-16] MEDS ORDERED: Cholestyramine/Sucrose Powder 4 GM Packet PO PRN ×2 (19:14→19:33)
[2023-08-16] MEDS ORDERED: Loperamide 2 MG Cap PO PRN (19:14)
[2023-08-16] MEDS: Calcium Carbonate/Vitamin D3 1250 MG-5 MCG Tab PO SCH (22:05)
[2023-08-16] MEDS: Pregabalin 50 MG Cap PO SCH (22:08)
[2023-08-16] MEDS: Zolpidem 5 MG Tab PO SCH (22:09)
[2023-08-16] MEDS: traMADol 50 MG Tab PO SCH (22:09)
[2023-08-16] MEDS: DULoxetine 60 MG Cap PO SCH (22:10)
[2023-08-16] MEDS: traZODone 50 MG Tab PO SCH (22:10)
[2023-08-16] MEDS: Hypromellose 0.3% Ophth Soln 15 ML Bottle EYEBOTH SCH (22:11)
[2023-08-17] MEDS: Pantoprazole 40 MG Vial IVPUSH SCH ×2 (05:49→17:47)
[2023-08-17] MEDS: Acetaminophen 325 MG Tab PO PRN (05:54)
[2023-08-17 06:41] LABS: HEMATOCRIT 28.4 % (33.0-47.0); HEMOGLOBIN 8.8 g/dL (12.0-16.0); MEAN CORPUSCULAR HEMOGLOBIN 25.1 pg (26.0-32.0); MEAN CORPUSCULAR VOLUME 81.1 fL (78.0-93.0); PLATELET COUNT,PLT 307 x10^3/uL (130-400); WHITE BLOOD CELL COUNT,WBC 8.1 x10^3/uL (4.0-10.0)
[2023-08-17 07:02] LABS: ANISOCYTOSIS 2+ MODERATE; BAND PERCENT MAN 2 % (0-6); EOSINOPHILS ABSOLUTE MAN 0.1 x10^3/uL (0.0-0.5); EOSINOPHILS PERCENT MAN 1 % (0-4); HYPOCHROMASIA 2+ MODERATE; LYMPHOCYTES ABSOLUTE MAN 1.1 x10^3/uL (1.0-4.8); LYMPHOCYTES PERCENT MAN 14 % (25-50); MONOCYTES ABSOLUTE MAN 0.2 x10^3/uL (0.0-0.8); MONOCYTES PERCENT MAN 2 % (2-11); NEUTROPHILS ABSOLUTE MAN 6.7 x10^3/uL (1.8-7.7); PLATELET COUNT ESTIMATE ADEQUATE; POLYCHROMASIA 1+ SLIGHT; SCHISTOCYTES 1+ SLIGHT; SEG NEUTROPHILS PERCENT MAN 81 % (50-80)
[2023-08-17 07:09] LABS: A/G RATIO 0.64; ALBUMIN 2.1 g/dL (3.4-5.0); BILIRUBIN TOTAL 0.5 mg/dL (0.2-1.0); CALCIUM 8.4 mg/dL (8.5-10.1); CREATININE 0.8 mg/dL (0.55-1.02); EST CRCL DRUG DOSING (CG) 49.24 mL/min; POTASSIUM,K 4.3 mmol/L (3.5-5.1); PROTEIN TOTAL,TP 5.4 g/dL (6.4-8.2)
[2023-08-17 07:13] LABS: ANION GAP 10.3 mmol/L (5-15)
[2023-08-17] MEDS: Spironolactone 25 MG Tab PO SCH (08:54)
[2023-08-17] MEDS: Calcium Carbonate/Vitamin D3 1250 MG-5 MCG Tab PO SCH ×2 (08:55→20:11)
[2023-08-17] MEDS: traMADol 50 MG Tab PO SCH ×2 (08:55→20:10)
[2023-08-17] MEDS: D-Mannose 500 MG Cap PO SCH (08:55)
[2023-08-17] MEDS: Cholecalciferol (Vitamin D3) 25 MCG Tab PO SCH (08:55)
[2023-08-17] MEDS: Lactobacillus Rhamnosus GG (Probiotic) Cap PO SCH (08:55)
[2023-08-17] MEDS: Donepezil 10 MG Tab PO SCH (08:55)
[2023-08-17] MEDS: Psyllium Husk Powder Sugar Free 5.85 GM Packet PO SCH (08:55)
[2023-08-17] MEDS: DULoxetine 60 MG Cap PO SCH ×2 (08:56→20:11)
[2023-08-17] MEDS: Pregabalin 50 MG Cap PO SCH ×3 (08:56→20:11)
[2023-08-17] MEDS: Hypromellose 0.3% Ophth Soln 15 ML Bottle EYEBOTH SCH ×4 (08:58→20:10)
[2023-08-17] MEDS ORDERED: FLU (Fluad Quad) 2023-24(65UP)/MF59C/PF 60 MCG/0.5 ML Syringe IM ONE (09:00)
[2023-08-17] MEDS ORDERED: Mineral Oil/Petrolatum Ophth Oint 3.5 GM Tube EYEBOTH SCH ×2 (09:00→21:00)
[2023-08-17] MEDS: Sucralfate 1 GM Tab PO SCH ×3 (09:04→17:46)
[2023-08-17] MEDS ORDERED: Sodium Chloride 0.9% 100 ML IV ONE (10:45)
[2023-08-17] MEDS ORDERED: Iron Sucrose Complex 100 MG/5 ML SDV IVPUSH ONE (11:00)
[2023-08-17] MEDS: Honey 44 ML Gel TP SCH (14:33)
[2023-08-17 16:12] LABS: HEMATOCRIT 31.3 % (33.0-47.0); HEMOGLOBIN 9.8 g/dL (12.0-16.0)
[2023-08-17] MEDS: Zolpidem 5 MG Tab PO SCH (20:10)
[2023-08-17] MEDS: traZODone 50 MG Tab PO SCH (20:11)
[2023-08-18] MEDS: Pantoprazole 40 MG Vial IVPUSH SCH (06:15)
[2023-08-18] MEDS: Sucralfate 1 GM Tab PO SCH ×2 (06:15→10:48)
[2023-08-18 06:20] VITALS: BP 110/55; PULSE 69
[2023-08-18] MEDS: Acetaminophen 325 MG Tab PO PRN (06:34)
[2023-08-18 07:06] LABS: HEMATOCRIT 28.9 % (33.0-47.0); MEAN CORPUSCULAR HGB CONC 31.1 g/dL (32.0-36.0); MEAN CORPUSCULAR VOLUME 80.3 fL (78.0-93.0); PLATELET COUNT,PLT 264 x10^3/uL (130-400); WHITE BLOOD CELL COUNT,WBC 7.9 x10^3/uL (4.0-10.0)
[2023-08-18 07:18] LABS: CALCIUM 8.6 mg/dL (8.5-10.1); CREATININE 0.8 mg/dL (0.55-1.02); EST CRCL DRUG DOSING (CG) 49.24 mL/min; POTASSIUM,K 3.9 mmol/L (3.5-5.1)
[2023-08-18 07:22] LABS: ANION GAP 12.9 mmol/L (5-15)
[2023-08-18 07:37] LABS: ANISOCYTOSIS 2+ MODERATE; EOSINOPHILS ABSOLUTE MAN 0.5 x10^3/uL (0.0-0.5); EOSINOPHILS PERCENT MAN 6 % (0-4); LYMPHOCYTES ABSOLUTE MAN 1.3 x10^3/uL (1.0-4.8); LYMPHOCYTES PERCENT MAN 16 % (25-50); MONOCYTES ABSOLUTE MAN 0.5 x10^3/uL (0.0-0.8); MONOCYTES PERCENT MAN 6 % (2-11); NEUTROPHILS ABSOLUTE MAN 5.7 x10^3/uL (1.8-7.7); SEG NEUTROPHILS PERCENT MAN 72 % (50-80)
[2023-08-18 07:38] LABS: HYPOCHROMASIA 2+ MODERATE; OVALOCYTES 1+ SLIGHT; PLATELET COUNT ESTIMATE ADEQUATE; TARGET CELLS 2+ MODERATE
[2023-08-18] MEDS: D-Mannose 500 MG Cap PO SCH (08:35)
[2023-08-18] MEDS: DULoxetine 60 MG Cap PO SCH (08:36)
[2023-08-18] MEDS: Lactobacillus Rhamnosus GG (Probiotic) Cap PO SCH (08:36)
[2023-08-18] MEDS: Spironolactone 25 MG Tab PO SCH (08:36)
[2023-08-18] MEDS: Cholecalciferol (Vitamin D3) 25 MCG Tab PO SCH (08:36)
[2023-08-18] MEDS: Pregabalin 50 MG Cap PO SCH (08:36)
[2023-08-18] MEDS: Donepezil 10 MG Tab PO SCH (08:36)
[2023-08-18] MEDS: Calcium Carbonate/Vitamin D3 1250 MG-5 MCG Tab PO SCH (08:36)
[2023-08-18] MEDS: traMADol 50 MG Tab PO SCH (08:36)
[2023-08-18] MEDS: Hypromellose 0.3% Ophth Soln 15 ML Bottle EYEBOTH SCH (08:37)
[2023-08-18] MEDS: Honey 44 ML Gel TP SCH (08:37)
[2023-08-18] MEDS: Psyllium Husk Powder Sugar Free 5.85 GM Packet PO SCH (08:37)
[2023-08-18] MEDS ORDERED: FLU (Fluad Quad) 2023-24(65UP)/MF59C/PF 60 MCG/0.5 ML Syringe IM ONE (09:30)
== END 2023-08-18 10:55 | DRG 378 ==
LOC: VM.MS 17:14
PROVIDERS: ADMIT Internal Medicine; ATTEND Internal Medicine
PROC: 30233N1 Transfusion of Nonautologous Red Blood Cells into Peripheral Vein, Percutaneous Approach (ICD-10-PCS; principal; 2023-08-16)
PROC: 30233N1 Transfusion of Nonautologous Red Blood Cells into Peripheral Vein, Percutaneous Approach (ICD-10-PCS; 2023-08-16)
DX: K92.2 Gastrointestinal hemorrhage, unspecified (principal); D62 Acute posthemorrhagic anemia; E44.0 Moderate protein-calorie malnutrition; G89.29 Other chronic pain; M25.551 Pain in right hip; Z66 Do not resuscitate; I10 Essential (primary) hypertension; N31.9 Neuromuscular dysfunction of bladder, unspecified; G35 Multiple sclerosis; G30.9 Alzheimer's disease, unspecified; F02.80 Dementia in other diseases classified elsewhere, unspecified severity, without behavioral disturbance, psychotic disturbance, mood disturbance, and anxiety; G62.9 Polyneuropathy, unspecified; G47.00 Insomnia, unspecified; M54.9 Dorsalgia, unspecified; M81.0 Age-related osteoporosis without current pathological fracture; F32.9 Major depressive disorder, single episode, unspecified; J44.9 Chronic obstructive pulmonary disease, unspecified; Z86.73 Personal history of transient ischemic attack (TIA), and cerebral infarction without residual deficits; Z88.2 Allergy status to sulfonamides; Z98.84 Bariatric surgery status; Z88.8 Allergy status to other drugs, medicaments and biological substances; Z98.890 Other specified postprocedural states; Z87.440 Personal history of urinary (tract) infections; Z85.3 Personal history of malignant neoplasm of breast; S72.402G Unspecified fracture of lower end of left femur, subsequent encounter for closed fracture with delayed healing; Z68.30 Body mass index [BMI] 30.0-30.9, adult
CPT/HCPCS: 36415; 36430; 71045; 80048; 80053; 85014; 85018; 85025; 85610; 85730; 86850; 86900; 86901; 86920; 86922; 87070; 90694; A9270-GY; C9113; G0008; J1756; J3490; P9016

== ENCOUNTER 2024-04-11 09:58 | Emergency (ER) | payer MEDICAID, MEDICARE ==
[2024-04-11 10:25] LABS: BASOPHILS ABSOLUTE AUTO 0.1 x10^3/uL (0.0-0.2); BASOPHILS PERCENT AUTO 0.9 % (0.2-1.2); EOSINOPHILS ABSOLUTE AUTO 0.3 x10^3/uL (0.0-0.5); EOSINOPHILS PERCENT AUTO 2.7 % (0.0-4.0); HEMATOCRIT 42.3 % (33.0-47.0); HEMOGLOBIN 13.8 g/dL (12.0-16.0); IMMATURE GRAN ABSOLUTE AUTO 0.02 x10^3/uL (0.00-0.07); LYMPHOCYTES ABSOLUTE AUTO 1.1 x10^3/uL (1.0-4.8); LYMPHOCYTES PERCENT AUTO 11.6 % (25.0-50.0); MEAN CORPUSCULAR HEMOGLOBIN 25.9 pg (26.0-32.0); MEAN CORPUSCULAR HGB CONC 32.6 g/dL (32.0-36.0); MEAN CORPUSCULAR VOLUME 79.4 fL (78.0-93.0); MONOCYTES ABSOLUTE AUTO 0.8 x10^3/uL (0.0-0.8); NEUTROPHILS PERCENT AUTO 75.6 % (50.0-80.0); PLATELET COUNT,PLT 213 x10^3/uL (130-400); RED BLOOD CELL COUNT 5.33 x10^6/uL (4.00-5.50); WHITE BLOOD CELL COUNT,WBC 9.3 x10^3/uL (4.0-10.0)
[2024-04-11 10:46] LABS: A/G RATIO 0.62; ALANINE AMINOTRANSFERASE,ALT 13 U/L (14-59); ALBUMIN 2.6 g/dL (3.4-5.0); ALKALINE PHOSPHATASE 130 U/L (46-116); ASPARTATE AMNIOTRANSFERASE,AST 18 U/L (15-37); BILIRUBIN TOTAL 0.3 mg/dL (0.2-1.0); BLOOD UREA NITROGEN,BUN 5 mg/dL (7-18); CALCIUM 9.1 mg/dL (8.5-10.1); CARBON DIOXIDE,CO2 26 mmol/L (21-32); CHLORIDE,CL 102 mmol/L (98-107); CREATININE 0.9 mg/dL (0.55-1.02); GLUCOSE RANDOM 101 mg/dL (70-99); POTASSIUM,K 4.4 mmol/L (3.5-5.1); PROTEIN TOTAL,TP 6.8 g/dL (6.4-8.2); SODIUM,NA 137 mmol/L (136-145)
[2024-04-11 10:49] LABS: ANION GAP 13.4 mmol/L (5-15)
[2024-04-11 10:50] LABS: ESTIMATED GFR 65 mL/min (>=60)
[2024-04-11 15:53] VITALS: BP 156/83; PULSE 76
== END 2024-04-11 12:38 | disposition home or self-care (01) ==
LOC: VM.ED 09:58
DX: B02.9 Zoster without complications (principal); I10 Essential (primary) hypertension; K21.9 Gastro-esophageal reflux disease without esophagitis; Z88.2 Allergy status to sulfonamides; Z88.8 Allergy status to other drugs, medicaments and biological substances; Z79.899 Other long term (current) drug therapy
CPT/HCPCS: 36415; 70450; 70486; 80053; 85025; 99285

== ENCOUNTER 2025-05-07 12:32 | Emergency (ER) | payer MEDICARE, MEDICAID ==
[2025-05-07] MEDS ORDERED: Sodium Chloride 0.9% 10 ML Syringe FLUSH PRN (12:39)
[2025-05-07 13:26] LABS: BASOPHILS ABSOLUTE AUTO 0.0 x10^3/uL (0.0-0.2); BASOPHILS PERCENT AUTO 0.1 % (0.2-1.2); EOSINOPHILS ABSOLUTE AUTO 0.0 x10^3/uL (0.0-0.5); EOSINOPHILS PERCENT AUTO 0.2 % (0.0-4.0); IMMATURE GRAN ABSOLUTE AUTO 0.05 x10^3/uL (0.00-0.07); IMMATURE GRAN PERCENT AUTO 0.40 % (0.00-0.43); LYMPHOCYTES ABSOLUTE AUTO 1.8 x10^3/uL (1.0-4.8); LYMPHOCYTES PERCENT AUTO 12.5 % (25.0-50.0); MONOCYTES ABSOLUTE AUTO 1.7 x10^3/uL (0.0-0.8); MONOCYTES PERCENT AUTO 11.8 % (2.0-11.0); NEUTROPHILS ABSOLUTE AUTO 10.6 x10^3/uL (1.8-7.7); NEUTROPHILS PERCENT AUTO 75.0 % (50.0-80.0); PLATELET COUNT,PLT 187 x10^3/uL (130-400); RED BLOOD CELL COUNT 3.51 x10^6/uL (4.00-5.50); WHITE BLOOD CELL COUNT,WBC 14.1 x10^3/uL (4.0-10.0)
[2025-05-07 13:46] LABS: A/G RATIO 0.45; ALANINE AMINOTRANSFERASE,ALT 42 U/L (14-59); ASPARTATE AMNIOTRANSFERASE,AST 79 U/L (15-37); BILIRUBIN TOTAL 1.4 mg/dL (0.2-1.0); BLOOD UREA NITROGEN,BUN 9 mg/dL (7-18); CARBON DIOXIDE,CO2 27 mmol/L (21-32); CHLORIDE,CL 103 mmol/L (98-107); CREATININE 0.8 mg/dL (0.55-1.02); ESTIMATED GFR 74 mL/min (>=60); GLUCOSE RANDOM 82 mg/dL (70-99); POTASSIUM,K 4.5 mmol/L (3.5-5.1); PROTEIN TOTAL,TP 4.8 g/dL (6.4-8.2); SODIUM,NA 137 mmol/L (136-145)
[2025-05-07] MEDS: Lactated Ringers 1,000 ML IV ONE ×2 (14:05→15:54)
[2025-05-07 17:57] LABS: APPEARANCE,URINE CLOUDY (CLEAR); GLUCOSE,URINE NEGATIVE (NEGATIVE); OCCULT BLOOD,URINE SMALL (NEGATIVE)
[2025-05-07 18:04] LABS: SQUAMOUS EPITHELIAL CELLS,UR NOT SEEN /HPF (NOT SEEN); WBC CASTS,URINE MODERATE /HPF (NOT SEEN)
[2025-05-07 18:54] VITALS: BP 137/86; PULSE 94
== END 2025-05-07 18:43 ==
LOC: SUPCPDRO 12:32 → VM.ED 12:32
DX: N39.0 Urinary tract infection, site not specified (principal); I10 Essential (primary) hypertension; J44.9 Chronic obstructive pulmonary disease, unspecified; K21.9 Gastro-esophageal reflux disease without esophagitis; Z88.8 Allergy status to other drugs, medicaments and biological substances; Z88.2 Allergy status to sulfonamides; Z79.51 Long term (current) use of inhaled steroids; Z79.899 Other long term (current) drug therapy
CPT/HCPCS: 36415; 71045; 74176; 80053; 81001; 83605; 85025; 86140; 87040; 87077; 87086; 87088; 87186; 96361; 96374; 99285-25; J0696; J7120

== ENCOUNTER 2025-05-09 11:14 | Inpatient (IN) | payer MEDICARE, MEDICAID ==
[2025-05-09] MEDS ORDERED: VANCOMYCIN IV ONE (12:30)
[2025-05-09 13:00] LABS: BASOPHILS ABSOLUTE AUTO 0.0 x10^3/uL (0.0-0.2); BASOPHILS PERCENT AUTO 0.3 % (0.2-1.2); EOSINOPHILS ABSOLUTE AUTO 0.3 x10^3/uL (0.0-0.5); EOSINOPHILS PERCENT AUTO 2.5 % (0.0-4.0); IMMATURE GRAN ABSOLUTE AUTO 0.07 x10^3/uL (0.00-0.07); IMMATURE GRAN PERCENT AUTO 0.70 % (0.00-0.43); LYMPHOCYTES ABSOLUTE AUTO 2.0 x10^3/uL (1.0-4.8); LYMPHOCYTES PERCENT AUTO 18.9 % (25.0-50.0); MONOCYTES ABSOLUTE AUTO 1.2 x10^3/uL (0.0-0.8); MONOCYTES PERCENT AUTO 11.4 % (2.0-11.0); NEUTROPHILS ABSOLUTE AUTO 6.9 x10^3/uL (1.8-7.7); NEUTROPHILS PERCENT AUTO 66.2 % (50.0-80.0); PLATELET COUNT,PLT 196 x10^3/uL (130-400); RED BLOOD CELL COUNT 3.94 x10^6/uL (4.00-5.50); WHITE BLOOD CELL COUNT,WBC 10.5 x10^3/uL (4.0-10.0)
[2025-05-09] MEDS: VANCOMYCIN IV ONE (13:11)
[2025-05-09 13:17] LABS: A/G RATIO 0.36; ALANINE AMINOTRANSFERASE,ALT 40.0 U/L (14-59); ASPARTATE AMNIOTRANSFERASE,AST 62.0 U/L (15-37); BILIRUBIN TOTAL 0.9 mg/dL (0.2-1.0); BLOOD UREA NITROGEN,BUN 8.0 mg/dL (7-18); CARBON DIOXIDE,CO2 30.0 mmol/L (21-32); CHLORIDE,CL 103.0 mmol/L (98-107); CREATININE 0.9 mg/dL (0.55-1.02); EST CRCL DRUG DOSING (CG) 42.33 mL/min; GLUCOSE RANDOM 92.0 mg/dL (70-99); POTASSIUM,K 5.1 mmol/L (3.5-5.1); PROTEIN TOTAL,TP 5.3 g/dL (6.4-8.2); SODIUM,NA 138.0 mmol/L (136-145)
[2025-05-09 13:18] LABS: ESTIMATED GFR 64.0 mL/min (>=60)
[2025-05-09] MEDS: Hypromellose 0.3% Ophth Soln 15 ML Bottle EYEBOTH SCH (13:43)
[2025-05-09] MEDS: Lactated Ringers 1,000 ML IV SCH (15:08)
[2025-05-09] MEDS: Heparin Sodium 5,000 Units/ML Vial SUBCUT SCH (18:41)
[2025-05-09] MEDS: Calcium Carbonate/Vitamin D3 1250 MG-5 MCG Tab PO SCH (21:36)
[2025-05-09] MEDS: Vitamins A and D Oint 113 GM Tube TOP SCH (21:50)
[2025-05-10 07:43] LABS: BASOPHILS ABSOLUTE AUTO 0.1 x10^3/uL (0.0-0.2); BASOPHILS PERCENT AUTO 0.7 % (0.2-1.2); EOSINOPHILS ABSOLUTE AUTO 0.5 x10^3/uL (0.0-0.5); EOSINOPHILS PERCENT AUTO 6.3 % (0.0-4.0); IMMATURE GRAN ABSOLUTE AUTO 0.08 x10^3/uL (0.00-0.07); IMMATURE GRAN PERCENT AUTO 1.10 % (0.00-0.43); LYMPHOCYTES ABSOLUTE AUTO 2.6 x10^3/uL (1.0-4.8); LYMPHOCYTES PERCENT AUTO 35.0 % (25.0-50.0); MONOCYTES ABSOLUTE AUTO 0.7 x10^3/uL (0.0-0.8); MONOCYTES PERCENT AUTO 10.0 % (2.0-11.0); NEUTROPHILS ABSOLUTE AUTO 3.4 x10^3/uL (1.8-7.7); NEUTROPHILS PERCENT AUTO 46.9 % (50.0-80.0); PLATELET COUNT,PLT 138 x10^3/uL (130-400); RED BLOOD CELL COUNT 3.42 x10^6/uL (4.00-5.50); WHITE BLOOD CELL COUNT,WBC 7.3 x10^3/uL (4.0-10.0)
[2025-05-10 08:06] LABS: A/G RATIO 0.38; ALANINE AMINOTRANSFERASE,ALT 30.0 U/L (14-59); ASPARTATE AMNIOTRANSFERASE,AST 39.0 U/L (15-37); BILIRUBIN TOTAL 0.6 mg/dL (0.2-1.0); BLOOD UREA NITROGEN,BUN 7.0 mg/dL (7-18); CARBON DIOXIDE,CO2 30.0 mmol/L (21-32); CHLORIDE,CL 108.0 mmol/L (98-107); CREATININE 0.8 mg/dL (0.55-1.02); EST CRCL DRUG DOSING (CG) 47.62 mL/min; GLUCOSE RANDOM 76.0 mg/dL (70-99); POTASSIUM,K 4.2 mmol/L (3.5-5.1); PROTEIN TOTAL,TP 4.4 g/dL (6.4-8.2); SODIUM,NA 141.0 mmol/L (136-145); VANCOMYCIN RANDOM 12.5 ug/mL (5.0-10.0)
[2025-05-10 08:07] LABS: ESTIMATED GFR 74.0 mL/min (>=60)
[2025-05-10] MEDS: D-Mannose 500 MG Cap PO SCH (09:04)
[2025-05-10] MEDS: Psyllium Husk Powder Sugar Free 5.85 GM Packet PO SCH (09:59)
[2025-05-10] MEDS: Lactobacillus Rhamnosus GG (Probiotic) Cap PO SCH (10:00)
[2025-05-10] MEDS: Cholecalciferol (Vitamin D3) 25 MCG Tab PO SCH (10:00)
[2025-05-10] MEDS: GLATIRAMER 20 MG/ML SUBCUT SCH (10:09)
[2025-05-10] MEDS: VANCOmycin 1.25 GM/250 ML 1.25 GM in Premix Bag 1 BAG IV SCH (11:58)
[2025-05-11 07:18] LABS: PLATELET COUNT,PLT 212.0 x10^3/uL (130-400); RED BLOOD CELL COUNT 3.62 x10^6/uL (4.00-5.50); WHITE BLOOD CELL COUNT,WBC 7.0 x10^3/uL (4.0-10.0)
[2025-05-11 07:41] LABS: A/G RATIO 0.38; ALANINE AMINOTRANSFERASE,ALT 33.0 U/L (14-59); ASPARTATE AMNIOTRANSFERASE,AST 38.0 U/L (15-37); BILIRUBIN TOTAL 0.7 mg/dL (0.2-1.0); BLOOD UREA NITROGEN,BUN 6.0 mg/dL (7-18); CARBON DIOXIDE,CO2 29.0 mmol/L (21-32); CHLORIDE,CL 107.0 mmol/L (98-107); CREATININE 0.9 mg/dL (0.55-1.02); EST CRCL DRUG DOSING (CG) 42.33 mL/min; GLUCOSE RANDOM 83.0 mg/dL (70-99); POTASSIUM,K 3.9 mmol/L (3.5-5.1); PROTEIN TOTAL,TP 4.7 g/dL (6.4-8.2); SODIUM,NA 142.0 mmol/L (136-145); VANCOMYCIN RANDOM 18.0 ug/mL (5.0-10.0)
[2025-05-11 07:43] LABS: ESTIMATED GFR 64.0 mL/min (>=60)
[2025-05-12 08:16] LABS: A/G RATIO 0.39; ALANINE AMINOTRANSFERASE,ALT 28.0 U/L (14-59); ASPARTATE AMNIOTRANSFERASE,AST 36.0 U/L (15-37); BILIRUBIN TOTAL 0.7 mg/dL (0.2-1.0); BLOOD UREA NITROGEN,BUN 6.0 mg/dL (7-18); CARBON DIOXIDE,CO2 29.0 mmol/L (21-32); CHLORIDE,CL 109.0 mmol/L (98-107); CREATININE 0.9 mg/dL (0.55-1.02); EST CRCL DRUG DOSING (CG) 42.33 mL/min; GLUCOSE RANDOM 72.0 mg/dL (70-99); POTASSIUM,K 3.9 mmol/L (3.5-5.1); PROTEIN TOTAL,TP 4.6 g/dL (6.4-8.2); SODIUM,NA 143.0 mmol/L (136-145)
[2025-05-12 08:17] LABS: PLATELET COUNT,PLT 223.0 x10^3/uL (130-400); RED BLOOD CELL COUNT 3.37 x10^6/uL (4.00-5.50); WHITE BLOOD CELL COUNT,WBC 6.3 x10^3/uL (4.0-10.0)
[2025-05-12 08:26] LABS: ESTIMATED GFR 64.0 mL/min (>=60)
[2025-05-12] MEDS: VANCOmycin 1 GM/200 ML 1 GM in Premix Bag 1 BAG IV SCH (12:21)
[2025-05-13 07:00] LABS: PLATELET COUNT,PLT 235.0 x10^3/uL (130-400); RED BLOOD CELL COUNT 3.12 x10^6/uL (4.00-5.50); WHITE BLOOD CELL COUNT,WBC 6.4 x10^3/uL (4.0-10.0)
[2025-05-13 07:22] LABS: A/G RATIO 0.55; ALANINE AMINOTRANSFERASE,ALT 25.0 U/L (14-59); ASPARTATE AMNIOTRANSFERASE,AST 34.0 U/L (15-37); BILIRUBIN TOTAL 0.7 mg/dL (0.2-1.0); BLOOD UREA NITROGEN,BUN 6.0 mg/dL (7-18); CARBON DIOXIDE,CO2 27.0 mmol/L (21-32); CHLORIDE,CL 109.0 mmol/L (98-107); CREATININE 0.7 mg/dL (0.55-1.02); EST CRCL DRUG DOSING (CG) 54.43 mL/min; GLUCOSE RANDOM 80.0 mg/dL (70-99); POTASSIUM,K 3.7 mmol/L (3.5-5.1); PROTEIN TOTAL,TP 4.5 g/dL (6.4-8.2); SODIUM,NA 142.0 mmol/L (136-145)
[2025-05-13 07:30] LABS: ESTIMATED GFR 87.0 mL/min (>=60)
[2025-05-13 13:33] VITALS: BP 116/73; PULSE 68
[2025-05-14] MEDS ORDERED: ALPHA D GALACTOSIDASE 400 UNIT PO SCH (09:00)
== END 2025-05-13 13:25 | DRG 698 ==
LOC: VM.MS 11:14
PROVIDERS: ADMIT Internal Medicine; ATTEND Internal Medicine
DX: T83.510A Infection and inflammatory reaction due to cystostomy catheter, initial encounter (principal); E43 Unspecified severe protein-calorie malnutrition; N39.0 Urinary tract infection, site not specified; R78.81 Bacteremia; B96.4 Proteus (mirabilis) (morganii) as the cause of diseases classified elsewhere; B96.20 Unspecified Escherichia coli [E. coli] as the cause of diseases classified elsewhere; Z66 Do not resuscitate; G89.29 Other chronic pain; G35 Multiple sclerosis; G62.9 Polyneuropathy, unspecified; M81.0 Age-related osteoporosis without current pathological fracture; G30.9 Alzheimer's disease, unspecified; F02.80 Dementia in other diseases classified elsewhere, unspecified severity, without behavioral disturbance, psychotic disturbance, mood disturbance, and anxiety; Z96.643 Presence of artificial hip joint, bilateral; Z96.612 Presence of left artificial shoulder joint; E86.0 Dehydration; G47.00 Insomnia, unspecified; D50.9 Iron deficiency anemia, unspecified; E88.09 Other disorders of plasma-protein metabolism, not elsewhere classified; N31.2 Flaccid neuropathic bladder, not elsewhere classified; Z90.10 Acquired absence of unspecified breast and nipple; Z90.49 Acquired absence of other specified parts of digestive tract; Z98.84 Bariatric surgery status; Z79.899 Other long term (current) drug therapy
CPT/HCPCS: 36415; 71046; 80053; 80202; 83605; 85025; 85027; 85652; 86140; 87040; 87070; A9270-GY; J1335; J1644; J3375; J7120; P9047

== ENCOUNTER 2025-05-31 23:35 | Emergency (ER) | payer MEDICARE, MEDICAID ==
[2025-06-01 03:06] VITALS: BP 156/77; PULSE 73
== END 2025-06-01 00:40 ==
LOC: VM.ED 23:35
DX: T83.010A Breakdown (mechanical) of cystostomy catheter, initial encounter (principal); R33.9 Retention of urine, unspecified; I10 Essential (primary) hypertension; J44.9 Chronic obstructive pulmonary disease, unspecified; K21.9 Gastro-esophageal reflux disease without esophagitis; Z79.899 Other long term (current) drug therapy; Z88.2 Allergy status to sulfonamides; Z88.8 Allergy status to other drugs, medicaments and biological substances
CPT/HCPCS: 51702; 99283

== ENCOUNTER 2025-06-08 16:56 | Emergency (ER) | payer MEDICARE, MEDICAID ==
[2025-06-08] MEDS ORDERED: Sodium Chloride 0.9% 10 ML Syringe FLUSH PRN (17:13)
[2025-06-08 17:37] VITALS: BP 133/70; PULSE 75
[2025-06-08 17:49] LABS: BASOPHILS ABSOLUTE AUTO 0.0 x10^3/uL (0.0-0.2); BASOPHILS PERCENT AUTO 0.4 % (0.2-1.2); EOSINOPHILS ABSOLUTE AUTO 0.2 x10^3/uL (0.0-0.5); EOSINOPHILS PERCENT AUTO 2.1 % (0.0-4.0); IMMATURE GRAN ABSOLUTE AUTO 0.03 x10^3/uL (0.00-0.07); IMMATURE GRAN PERCENT AUTO 0.40 % (0.00-0.43); LYMPHOCYTES ABSOLUTE AUTO 2.1 x10^3/uL (1.0-4.8); LYMPHOCYTES PERCENT AUTO 28.5 % (25.0-50.0); MONOCYTES ABSOLUTE AUTO 0.7 x10^3/uL (0.0-0.8); MONOCYTES PERCENT AUTO 10.1 % (2.0-11.0); NEUTROPHILS ABSOLUTE AUTO 4.3 x10^3/uL (1.8-7.7); NEUTROPHILS PERCENT AUTO 58.5 % (50.0-80.0); PLATELET COUNT,PLT 196 x10^3/uL (130-400); RED BLOOD CELL COUNT 3.13 x10^6/uL (4.00-5.50); WHITE BLOOD CELL COUNT,WBC 7.3 x10^3/uL (4.0-10.0)
[2025-06-08 18:26] LABS: A/G RATIO 0.48; ALANINE AMINOTRANSFERASE,ALT 31 U/L (14-59); ASPARTATE AMNIOTRANSFERASE,AST 44 U/L (15-37); BILIRUBIN TOTAL 0.5 mg/dL (0.2-1.0); BLOOD UREA NITROGEN,BUN 9 mg/dL (7-18); CARBON DIOXIDE,CO2 28 mmol/L (21-32); CHLORIDE,CL 107 mmol/L (98-107); CREATININE 1.1 mg/dL (0.55-1.02); ESTIMATED GFR 50 mL/min (>=60); GLUCOSE RANDOM 94 mg/dL (70-99); POTASSIUM,K 4.1 mmol/L (3.5-5.1); PRO B-TYPE NATRIUR PEPT,BNPPRO 1709 pg/mL (<=450); PROTEIN TOTAL,TP 4.6 g/dL (6.4-8.2); SODIUM,NA 144 mmol/L (136-145)
[2025-06-08 19:05] LABS: APPEARANCE,URINE CLOUDY (CLEAR); GLUCOSE,URINE NEGATIVE (NEGATIVE); OCCULT BLOOD,URINE MODERATE (NEGATIVE)
[2025-06-08 19:15] LABS: SQUAMOUS EPITHELIAL CELLS,UR FEW /HPF (NOT SEEN)
== END 2025-06-08 20:42 | disposition home or self-care (01) ==
LOC: VM.ED 16:56
DX: N31.9 Neuromuscular dysfunction of bladder, unspecified (principal); N39.0 Urinary tract infection, site not specified; L30.4 Erythema intertrigo; I10 Essential (primary) hypertension; K21.9 Gastro-esophageal reflux disease without esophagitis; Z88.2 Allergy status to sulfonamides; Z88.8 Allergy status to other drugs, medicaments and biological substances; Z79.899 Other long term (current) drug therapy
CPT/HCPCS: 36415; 80053; 81001; 83605; 83735; 83880; 84484; 85025; 87086; 87088; 87186; 87428-QW; 93005; 96361; 96374; 99284; 99285-25; A9270-GY; J0696; J7030

== ENCOUNTER 2025-07-09 10:21 | Inpatient (IN) | payer MEDICARE, MEDICAID ==
[2025-07-09 10:36] LABS: APPEARANCE,URINE CLOUDY (CLEAR); GLUCOSE,URINE NEGATIVE (NEGATIVE); OCCULT BLOOD,URINE SMALL (NEGATIVE)
[2025-07-09 10:46] LABS: SQUAMOUS EPITHELIAL CELLS,UR MODERATE /HPF (NOT SEEN)
[2025-07-09 10:55] LABS: BASOPHILS ABSOLUTE AUTO 0.0 x10^3/uL (0.0-0.2); BASOPHILS PERCENT AUTO 0.0 % (0.2-1.2); EOSINOPHILS ABSOLUTE AUTO 0.1 x10^3/uL (0.0-0.5); EOSINOPHILS PERCENT AUTO 0.4 % (0.0-4.0); IMMATURE GRAN ABSOLUTE AUTO 0.09 x10^3/uL (0.00-0.07); IMMATURE GRAN PERCENT AUTO 0.50 % (0.00-0.43); LYMPHOCYTES ABSOLUTE AUTO 1.2 x10^3/uL (1.0-4.8); LYMPHOCYTES PERCENT AUTO 6.6 % (25.0-50.0); MONOCYTES ABSOLUTE AUTO 0.7 x10^3/uL (0.0-0.8); MONOCYTES PERCENT AUTO 3.7 % (2.0-11.0); NEUTROPHILS ABSOLUTE AUTO 16.7 x10^3/uL (1.8-7.7); NEUTROPHILS PERCENT AUTO 88.8 % (50.0-80.0); PLATELET COUNT,PLT 161 x10^3/uL (130-400); RED BLOOD CELL COUNT 3.63 x10^6/uL (4.00-5.50)
[2025-07-09 11:09] LABS: WHITE BLOOD CELL COUNT,WBC 18.7 x10^3/uL (4.0-10.0)
[2025-07-09 11:15] LABS: A/G RATIO 0.35; ALANINE AMINOTRANSFERASE,ALT 34 U/L (14-59); ASPARTATE AMNIOTRANSFERASE,AST 36 U/L (15-37); BILIRUBIN TOTAL 1.0 mg/dL (0.2-1.0); BLOOD UREA NITROGEN,BUN 22 mg/dL (7-18); CARBON DIOXIDE,CO2 21 mmol/L (21-32); CHLORIDE,CL 103 mmol/L (98-107); CREATININE 0.9 mg/dL (0.55-1.02); GLUCOSE RANDOM 65 mg/dL (70-99); POTASSIUM,K 4.0 mmol/L (3.5-5.1); PROTEIN TOTAL,TP 4.6 g/dL (6.4-8.2); SODIUM,NA 139 mmol/L (136-145)
[2025-07-09 11:17] LABS: ESTIMATED GFR 64 mL/min (>=60)
[2025-07-09] MEDS: cefTRIAXone 1 GM, Lidocaine 1% 2.1 ML IM ONE (12:16)
[2025-07-09] MEDS: Heparin Sodium 5,000 Units/ML Vial SUBCUT SCH (18:20)
[2025-07-09] MEDS: Hypromellose 0.3% Ophth Soln 15 ML Bottle EYEBOTH SCH (21:38)
[2025-07-09] MEDS: Miconazole 2% Top Powder 45 GM Container TOP SCH (21:38)
[2025-07-09] MEDS: Calcium Carbonate/Vitamin D3 1250 MG-5 MCG Tab PO SCH (21:42)
[2025-07-10] MEDS: 50% Dextrose in Water 50 ML Syringe IVPUSH PRN (05:42)
[2025-07-10] MEDS: Pantoprazole 20 MG Tab, Delayed Release PO SCH (05:49)
[2025-07-10 06:55] LABS: PLATELET COUNT,PLT 152 x10^3/uL (130-400); RED BLOOD CELL COUNT 3.32 x10^6/uL (4.00-5.50)
[2025-07-10 07:14] LABS: WHITE BLOOD CELL COUNT,WBC 20.9 x10^3/uL (4.0-10.0)
[2025-07-10 07:15] LABS: A/G RATIO 0.31; ALANINE AMINOTRANSFERASE,ALT 29.0 U/L (14-59); ASPARTATE AMNIOTRANSFERASE,AST 35.0 U/L (15-37); BILIRUBIN TOTAL 0.6 mg/dL (0.2-1.0); BLOOD UREA NITROGEN,BUN 19.0 mg/dL (7-18); CARBON DIOXIDE,CO2 25.0 mmol/L (21-32); CHLORIDE,CL 105.0 mmol/L (98-107); CREATININE 0.9 mg/dL (0.55-1.02); EST CRCL DRUG DOSING (CG) 42.33 mL/min; GLUCOSE RANDOM 95.0 mg/dL (70-99); POTASSIUM,K 4.2 mmol/L (3.5-5.1); PROTEIN TOTAL,TP 4.2 g/dL (6.4-8.2); SODIUM,NA 140.0 mmol/L (136-145)
[2025-07-10 07:16] LABS: ESTIMATED GFR 64.0 mL/min (>=60)
[2025-07-10 07:19] LABS: LYMPHOCYTES ABSOLUTE MAN 2.1 x10^3/uL (1.0-4.8); LYMPHOCYTES PERCENT MAN 10 % (25-50); MONOCYTES ABSOLUTE MAN 0.8 x10^3/uL (0.0-0.8); MONOCYTES PERCENT MAN 4 % (2-11); NEUTROPHILS ABSOLUTE MAN 18.0 x10^3/uL (1.8-7.7); SEG NEUTROPHILS PERCENT MAN 86 % (50-80)
[2025-07-10] MEDS: Lactobacillus Rhamnosus GG (Probiotic) Cap PO SCH (08:58)
[2025-07-10] MEDS: D-Mannose 500 MG Cap PO SCH (08:58)
[2025-07-10] MEDS: Psyllium Husk Powder Sugar Free 5.85 GM Packet PO SCH (09:01)
[2025-07-10] MEDS: Cholecalciferol (Vitamin D3) 25 MCG Tab PO SCH (09:05)
[2025-07-10] MEDS: ALPHA D GALACTOSIDASE 400 UNIT PO SCH (09:06)
[2025-07-10] MEDS: GLATIRAMER 20 MG/ML SUBCUT SCH (11:14)
[2025-07-11 06:56] LABS: BASOPHILS ABSOLUTE AUTO 0.0 x10^3/uL (0.0-0.2); BASOPHILS PERCENT AUTO 0.2 % (0.2-1.2); EOSINOPHILS ABSOLUTE AUTO 0.4 x10^3/uL (0.0-0.5); EOSINOPHILS PERCENT AUTO 3.7 % (0.0-4.0); IMMATURE GRAN ABSOLUTE AUTO 0.24 x10^3/uL (0.00-0.07); IMMATURE GRAN PERCENT AUTO 2.20 % (0.00-0.43); LYMPHOCYTES ABSOLUTE AUTO 3.0 x10^3/uL (1.0-4.8); LYMPHOCYTES PERCENT AUTO 27.6 % (25.0-50.0); MONOCYTES ABSOLUTE AUTO 0.5 x10^3/uL (0.0-0.8); MONOCYTES PERCENT AUTO 4.6 % (2.0-11.0); NEUTROPHILS ABSOLUTE AUTO 6.8 x10^3/uL (1.8-7.7); NEUTROPHILS PERCENT AUTO 61.7 % (50.0-80.0); PLATELET COUNT,PLT 163 x10^3/uL (130-400); RED BLOOD CELL COUNT 3.55 x10^6/uL (4.00-5.50); WHITE BLOOD CELL COUNT,WBC 11.0 x10^3/uL (4.0-10.0)
[2025-07-11 07:16] LABS: A/G RATIO 0.34; ALANINE AMINOTRANSFERASE,ALT 26.0 U/L (14-59); ASPARTATE AMNIOTRANSFERASE,AST 27.0 U/L (15-37); BILIRUBIN TOTAL 0.5 mg/dL (0.2-1.0); BLOOD UREA NITROGEN,BUN 16.0 mg/dL (7-18); CARBON DIOXIDE,CO2 22.0 mmol/L (21-32); CHLORIDE,CL 109.0 mmol/L (98-107); CREATININE 0.9 mg/dL (0.55-1.02); EST CRCL DRUG DOSING (CG) 42.33 mL/min; GLUCOSE RANDOM 163.0 mg/dL (70-99); POTASSIUM,K 3.0 mmol/L (3.5-5.1); PROTEIN TOTAL,TP 4.3 g/dL (6.4-8.2); SODIUM,NA 143.0 mmol/L (136-145)
[2025-07-11 07:23] LABS: ESTIMATED GFR 64.0 mL/min (>=60)
[2025-07-11] MEDS: NS with KCl 40mEq 1,000 ML IV SCH (11:28)
[2025-07-11] MEDS: ALBUMIN IV ONE (14:53)
[2025-07-11] MEDS: SODIUM CHLORIDE 0.9% IV ONE (14:53)
[2025-07-11] MEDS: Potassium Chloride 10 MEQ Tab.ER PO SCH (17:08)
[2025-07-12 08:30] LABS: BLOOD UREA NITROGEN,BUN 12.0 mg/dL (7-18); CARBON DIOXIDE,CO2 18.0 mmol/L (21-32); CHLORIDE,CL 113.0 mmol/L (98-107); CREATININE 0.8 mg/dL (0.55-1.02); EST CRCL DRUG DOSING (CG) 47.62 mL/min; GLUCOSE RANDOM 70.0 mg/dL (70-99); POTASSIUM,K 4.7 mmol/L (3.5-5.1); SODIUM,NA 145.0 mmol/L (136-145)
[2025-07-12 08:35] LABS: BASOPHILS ABSOLUTE AUTO 0.1 x10^3/uL (0.0-0.2); BASOPHILS PERCENT AUTO 0.8 % (0.2-1.2); EOSINOPHILS ABSOLUTE AUTO 0.4 x10^3/uL (0.0-0.5); EOSINOPHILS PERCENT AUTO 4.1 % (0.0-4.0); IMMATURE GRAN ABSOLUTE AUTO 0.42 x10^3/uL (0.00-0.07); IMMATURE GRAN PERCENT AUTO 4.60 % (0.00-0.43); LYMPHOCYTES ABSOLUTE AUTO 2.8 x10^3/uL (1.0-4.8); LYMPHOCYTES PERCENT AUTO 30.7 % (25.0-50.0); MONOCYTES ABSOLUTE AUTO 0.6 x10^3/uL (0.0-0.8); MONOCYTES PERCENT AUTO 6.2 % (2.0-11.0); NEUTROPHILS ABSOLUTE AUTO 4.9 x10^3/uL (1.8-7.7); NEUTROPHILS PERCENT AUTO 53.6 % (50.0-80.0); RED BLOOD CELL COUNT 3.48 x10^6/uL (4.00-5.50); WHITE BLOOD CELL COUNT,WBC 9.2 x10^3/uL (4.0-10.0)
[2025-07-12 08:39] LABS: ESTIMATED GFR 74.0 mL/min (>=60)
[2025-07-12 08:47] LABS: PLATELET COUNT,PLT 121 x10^3/uL (130-400)
[2025-07-14 07:14] LABS: BASOPHILS ABSOLUTE AUTO 0.0 x10^3/uL (0.0-0.2); BASOPHILS PERCENT AUTO 0.3 % (0.2-1.2); EOSINOPHILS ABSOLUTE AUTO 0.3 x10^3/uL (0.0-0.5); EOSINOPHILS PERCENT AUTO 3.3 % (0.0-4.0); IMMATURE GRAN ABSOLUTE AUTO 0.50 x10^3/uL (0.00-0.07); IMMATURE GRAN PERCENT AUTO 5.10 % (0.00-0.43); LYMPHOCYTES ABSOLUTE AUTO 3.1 x10^3/uL (1.0-4.8); LYMPHOCYTES PERCENT AUTO 31.7 % (25.0-50.0); MONOCYTES ABSOLUTE AUTO 0.6 x10^3/uL (0.0-0.8); MONOCYTES PERCENT AUTO 5.8 % (2.0-11.0); NEUTROPHILS ABSOLUTE AUTO 5.3 x10^3/uL (1.8-7.7); NEUTROPHILS PERCENT AUTO 53.8 % (50.0-80.0); PLATELET COUNT,PLT 148 x10^3/uL (130-400); RED BLOOD CELL COUNT 3.18 x10^6/uL (4.00-5.50)
[2025-07-14 07:30] LABS: BLOOD UREA NITROGEN,BUN 5.0 mg/dL (7-18); CARBON DIOXIDE,CO2 23.0 mmol/L (21-32); CHLORIDE,CL 110.0 mmol/L (98-107); CREATININE 0.5 mg/dL (0.55-1.02); EST CRCL DRUG DOSING (CG) 76.2 mL/min; GLUCOSE RANDOM 90.0 mg/dL (70-99); POTASSIUM,K 4.1 mmol/L (3.5-5.1); SODIUM,NA 143.0 mmol/L (136-145)
[2025-07-14 07:31] LABS: WHITE BLOOD CELL COUNT,WBC 9.8 x10^3/uL (4.0-10.0)
[2025-07-14 07:32] LABS: ESTIMATED GFR 94.0 mL/min (>=60)
[2025-07-14] MEDS ORDERED: Potassium Chloride 10 MEQ Tab.ER PO SCH (17:00)
[2025-07-15 11:26] VITALS: BP 119/70; PULSE 76
== END 2025-07-15 11:11 | DRG 698 ==
LOC: VM.ED 10:21 → VM.MS 12:05
PROVIDERS: ADMIT Internal Medicine; ATTEND Internal Medicine
DX: T83.511A Infection and inflammatory reaction due to indwelling urethral catheter, initial encounter (principal); A41.9 Sepsis, unspecified organism; E43 Unspecified severe protein-calorie malnutrition; F03.93 Unspecified dementia, unspecified severity, with mood disturbance; L03.116 Cellulitis of left lower limb; N39.0 Urinary tract infection, site not specified; Z66 Do not resuscitate; I10 Essential (primary) hypertension; N31.9 Neuromuscular dysfunction of bladder, unspecified; E16.2 Hypoglycemia, unspecified; J44.9 Chronic obstructive pulmonary disease, unspecified; H54.7 Unspecified visual loss; D72.829 Elevated white blood cell count, unspecified; G47.30 Sleep apnea, unspecified; K21.9 Gastro-esophageal reflux disease without esophagitis; M54.2 Cervicalgia; G89.29 Other chronic pain; R51.9 Headache, unspecified; Z85.3 Personal history of malignant neoplasm of breast; Z98.890 Other specified postprocedural states; Z88.8 Allergy status to other drugs, medicaments and biological substances; Z88.2 Allergy status to sulfonamides; Z79.899 Other long term (current) drug therapy; Z90.10 Acquired absence of unspecified breast and nipple; Z68.27 Body mass index [BMI] 27.0-27.9, adult
CPT/HCPCS: 36415; 70450; 71045; 80048; 80053; 81001; 82947; 83605; 83735; 85025; 87040; 87070; 87086; 87088; 87186; 97162-GP; 97165-GO; 99284; 99285; A9270-GY; J0696; J1335; J1644; J2003; J3480; J7030; J7050; P9047; S5010